=== PATIENT | male | born 1935 | race Caucasian/White ===

== ENCOUNTER 2018-01-18 13:15 | Inpatient (IN) | payer MEDICARE, BC ==
[2018-01-18] MEDS ORDERED: Sodium Chloride 0.9% 10 ML Syringe FLUSH PRN ×2 (13:25→16:20)
[2018-01-18] MEDS ORDERED: Albuterol/Ipratropium 3.0-0.5 MG/3 ML Neb Soln NEB ONE (13:29)
--- NOTE | 2018-01-18 14:09 | EDM.PDOC ---
ED HPI GENERAL MEDICAL PROBLEM - General Chief Complaint: Upper Extremity Injury/Pain Stated Complaint: CAME BY AMBULANCE, FALL Time Seen by Provider: 01/18/18 13:21 Source of Information: Reports: Patient History Limitations: Reports: No Limitations - History of Present Illness INITIAL COMMENTS - FREE TEXT/NARRATIVE: Laron is a 82 yo male who presents to the ED via ambulance after sustaining a fall. He reports that he had gotten up to the bathroom and got dizzy and fell onto the carpeted floor. Denies hitting his head, denies LOC, or neck pain. He is on coumadin. Patient reports that he has been sick for the last 2-3 days with a cough and generalized weakness. Reports that his cough is productive. He does have some shortness of breath. He has had chills at home. Reports pain to left arm after the fall. Onset: Today Onset Date: 01/15/18 Duration: Day(s):, Getting Worse Location: Reports: Upper Extremity, Left (Pain over left humerous. ) Quality: Reports: Sharp Severity: Moderate Improves with: Reports: None Worsens with: Reports: None Associated Symptoms: Reports: cough w sputum, Fever/Chills, Loss of Appetite, Shortness of Breath, Syncope, Weakness - Related Data Allergies Allergy/AdvReac Type Severity Reaction Status Date / Time No Known Allergies Allergy Verified 01/18/18 15:31 Home Meds: Home Meds Finasteride 5 mg PO DAILY 07/04/15 [History] Tamsulosin HCl 0.4 mg PO PCDINNER 07/04/15 [History] Aspirin [Adult Low Dose Aspirin EC] 81 mg PO DAILY 02/20/16 [History] Clopidogrel [Plavix] 1 tab PO DAILY 02/20/16 [History] Metoprolol Tartrate [Metoprolol Tartrate] 12.5 mg PO BID 02/20/16 [History] Nitroglycerin [Nitrostat] 1 tab SL ASDIRECTED 02/20/16 [History] atorvaSTATin [Lipitor] 40 mg PO BEDTIME 02/20/16 [History] Furosemide [Lasix] 20 mg PO DAILY 02/29/16 [History] Albuterol [Ventolin HFA] 2 puff INH Q6HR PRN 09/26/17 [History] Budesonide/Formoterol [Symbicort 80-4.5 MCG] 2 puff INH BID 09/26/17 [History] traMADol [Ultram] 50 mg PO DAILY PRN 09/26/17 [History] Acetaminophen [Tylenol Extra Strength] 1,000 mg PO BID PRN 01/18/18 [History] traZODone HCl [Trazodone HCl] 50 mg PO BEDTIME 01/18/18 [History] Past Medical History Other HEENT History: 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 Cardiovascular History: Reports: PA, Stents Other Cardiovascular History: PA with stents placed Nov 2015 Respiratory History: Reports: COPD, Pneumonia, Recurrent Other Musculoskeletal History: right hip fx Other Neuro History: 2012 bumped head Other Dermatologic History: eczema - Past Surgical History Cardiovascular Surgical History: Reports: Other (See Below) Social & Family History - Family History Family Medical History: Noncontributory - Tobacco Use Smoking Status *Q: Unknown Ever Smoked Years of Tobacco use: 30 Second Hand Smoke Exposure: No - Alcohol Use Days Per Week of Alcohol Use: 1 Number of Drinks Per Day: 1 Total Drinks Per Week: 1 - Recreational Drug Use Recreational Drug Use: No - Living Situation & Occupation Living situation: Reports: with Family Occupation: Retired Review of Systems - Review of Systems Review Of Systems: ROS reveals no pertinent complaints other than HPI. ED EXAM, GENERAL - Physical Exam Exam: See Below Exam Limited By: No Limitations General Appearance: Alert, WD/WN, Mild Distress Eye Exam: Bilateral Eye: PERRL Ears: Normal External Exam, Normal Canal, Hearing Grossly Normal, Normal TMs Ear Exam: Bilateral Ear: Canal Normal, TM normal Nose: Normal Inspection, Normal Mucosa, No Blood Throat/Mouth: Normal Inspection, Normal Lips, Normal Teeth, Normal Gums, Normal Oropharynx Head: Atraumatic, Normocephalic Neck: Normal Inspection, Supple, Non-Tender Respiratory/Chest: No Accessory Muscle Use, Crackles (coarse crackles throughout ), Wheezing Cardiovascular: Normal Peripheral Pulses, Regular Rate, Rhythm, No Edema, No Gallop, No Murmur, No Rub GI/Abdominal: Normal Bowel Sounds, Soft, Non-Tender, No Organomegaly, No Distention, No Mass (Male) Exam: Deferred Rectal (Males) Exam: Deferred Back Exam: Normal Inspection, Full Range of Motion Extremities: Arm Pain (Pain to left humerous post fall. skin tear present to elbow area. Denies numbness or tingling. Cap refill less than 2 seconds. Radial and ulner pulses present. All other extremities intact. Denies pain to other three limbs) Neurological: Alert, Oriented, CN II-XII Intact Psychiatric: Normal Affect, Normal Mood Skin Exam: Warm, Dry, Normal Color, No Rash, Other (Skin tear present to left elbow area) Lymphatic: No Adenopathy Course - Vital Signs Last Recorded V/S: Last Vital Signs Temp 102.3 F H 01/18/18 14:32 Pulse 93 01/18/18 14:32 Resp 16 01/18/18 14:32 BP 154/113 H 01/18/18 14:32 Pulse Ox 100 01/18/18 14:32 - Orders/Labs/Meds Orders: Active Orders 24 hr Category Date Time Status EKG Documentation Completion [RC] STAT Care 01/18/18 13:26 Active Peripheral IV Care [RC] . DIRECTED Care 01/18/18 13:27 Active RT Aerosol Therapy [RC] ASDIRECTED Care 01/18/18 13:29 Active CULTURE BLOOD [] Stat Lab 01/18/18 13:44 Results CULTURE BLOOD [] Stat Lab 01/18/18 13:50 Received Sodium Chloride 0.9% [Saline Flush] Med 01/18/18 13:25 Active 10 ml FLUSH ASDIRECTED PRN Blood Culture x2 Reflex Set [OM.PC] Stat Oth 01/18/18 13:26 Ordered Peripheral IV Insertion Adult [OM.PC] Stat Oth 01/18/18 13:25 Ordered Medication Orders Sodium Chloride (Saline Flush) 10 ml FLUSH ASDIRECTED PRN PRN Reason: Keep Vein Open Labs: Laboratory Tests 01/18/18 01/18/18 01/18/18 Range/Units 13:50 13:50 13:50 WBC 5.8 (5.0-10.0) 10^3/uL RBC 3.85 L (4.6-6.2) 10^6/uL Hgb 12.9 L D (14.0-18.0) g/dL Hct 39.0 L (40.0-54.0) % MCV 101.3 H D (80-100) fL MCH 33.5 (27.0-34.0) pg MCHC 33.1 (33.0-35.0) g/dL Plt Count 192 (150-450) 10^3/uL Neut % (Auto) 82.9 H (42.2-75.2) % Lymph % (Auto) 5.7 L (20.5-50.1) % [place] % (Auto) 10.9 H (2-8) % Eos % (Auto) 0.2 L (1.0-3.0) % Baso % (Auto) 0.3 (0.0-1.0) % PT (9.0-12.0) SEC INR (0.9-1.2) Sodium 137 (135-145) mmol/L Potassium 3.3 L (3.6-5.0) mmol/L Chloride 100 L (101-111) mmol/L Carbon Dioxide 28.0 (21.0-31.0) mmol/L Anion Gap 12.3 BUN 13 (7-18) mg/dL Creatinine 1.1 (0.6-1.3) mg/dL Est Cr Clr Drug Dosing 45.70 mL/min Estimated GFR (MDRD) > 60 BUN/Creatinine Ratio 11.81 Glucose 102 (74-105) mg/dL Lactic Acid (0.5-2.2) mmol/L Calcium 8.9 (8.4-10.2) mg/dl Total Bilirubin 0.5 (0.2-1.0) mg/dL AST 27 (10-42) IU/L ALT 15 (10-60) IU/L Alkaline Phosphatase 72 (42-121) IU/L Creatine Kinase 123 (26-174) IU/L Creatine Kinase Index 2.0 (0-2.4) % CK-MB (CK-2) 2.40 (0.4-4.7) ng/mL Troponin I 0.03 H* (0.00-0.02) ng/ml B-Natriuretic Peptide 519 H (0-100) pg/ml Total Protein 6.9 (6.7-8.2) g/dl Albumin 3.8 (3.2-5.5) g/dl Globulin 3.1 Albumin/Globulin Ratio 1.23 Urine Color (YELLOW) Urine Appearance (CLEAR) Urine pH (5.0-9.0) Ur Specific [place] (1.005-1.030) Urine Protein (NEGATIVE) Urine Glucose (UA) (NEGATIVE) Urine Ketones (NEGATIVE) Urine Occult Blood (NEGATIVE) Urine Nitrite (NEGATIVE) Urine Bilirubin (NEGATIVE) Urine Urobilinogen (0.2-1.0) mg/dL Ur Leukocyte Esterase (NEGATIVE) Urine RBC /HPF Urine WBC (0-5/HPF) /HPF Ur Epithelial Cells /HPF Urine Bacteria (0-FEW/HPF) /HPF Urine Mucus /LPF 01/18/18 01/18/18 01/18/18 Range/Units 13:50 13:50 14:02 WBC (5.0-10.0) 10^3/uL RBC (4.6-6.2) 10^6/uL Hgb (14.0-18.0) g/dL Hct (40.0-54.0) % MCV (80-100) fL MCH (27.0-34.0) pg MCHC (33.0-35.0) g/dL Plt Count (150-450) 10^3/uL Neut % (Auto) (42.2-75.2) % Lymph % (Auto) (20.5-50.1) % [place] % (Auto) (2-8) % Eos % (Auto) (1.0-3.0) % Baso % (Auto) (0.0-1.0) % PT 10.1 (9.0-12.0) SEC INR 1.0 (0.9-1.2) Sodium (135-145) mmol/L Potassium (3.6-5.0) mmol/L Chloride (101-111) mmol/L Carbon Dioxide (21.0-31.0) mmol/L Anion Gap BUN (7-18) mg/dL Creatinine (0.6-1.3) mg/dL Est Cr Clr Drug Dosing mL/min Estimated GFR (MDRD) BUN/Creatinine Ratio Glucose (74-105) mg/dL Lactic Acid 1.1 (0.5-2.2) mmol/L Calcium (8.4-10.2) mg/dl Total Bilirubin (0.2-1.0) mg/dL AST (10-42) IU/L ALT (10-60) IU/L Alkaline Phosphatase (42-121) IU/L Creatine Kinase (26-174) IU/L Creatine Kinase Index (0-2.4) % CK-MB (CK-2) (0.4-4.7) ng/mL Troponin I (0.00-0.02) ng/ml B-Natriuretic Peptide (0-100) pg/ml Total Protein (6.7-8.2) g/dl Albumin (3.2-5.5) g/dl Globulin Albumin/Globulin Ratio Urine Color Yellow (YELLOW) Urine Appearance Clear (CLEAR) Urine pH 5.5 (5.0-9.0) Ur Specific [place] 1.015 (1.005-1.030) Urine Protein 30 H (NEGATIVE) Urine Glucose (UA) Negative (NEGATIVE) Urine Ketones Negative (NEGATIVE) Urine Occult Blood Small H (NEGATIVE) Urine Nitrite Negative (NEGATIVE) Urine Bilirubin Negative (NEGATIVE) Urine Urobilinogen 0.2 (0.2-1.0) mg/dL Ur Leukocyte Esterase Negative (NEGATIVE) Urine RBC 5-10 H /HPF Urine WBC 0-5 (0-5/HPF) /HPF Ur Epithelial Cells Rare /HPF Urine Bacteria Rare (0-FEW/HPF) /HPF Urine Mucus Rare /LPF Influenza B: Negative Influenza A: POSITIVE Meds: Medications Generic Name Dose Route Start Last Admin Trade Name Freq PRN Reason Stop Dose Admin Sodium Chloride 10 ml 01/18/18 13:25 Saline Flush FLUSH ASDIRECTED PRN Keep Vein Open Discontinued Medications Generic Name Dose Route Start Last Admin Trade Name Freq PRN Reason Stop Dose Admin Acetaminophen 650 mg 01/18/18 14:34 01/18/18 14:39 Tylenol PO 01/18/18 14:35 650 mg NOW ONE Administration Acetaminophen Confirm 01/18/18 14:36 01/18/18 14:47 Tylenol Administered 01/18/18 14:37 Not Given Dose 650 mg .ROUTE .STK-MED ONE Albuterol/Ipratropium 3 ml 01/18/18 13:29 01/18/18 13:49 Duoneb 3.0-0.5 Mg/3 Ml NEB 01/18/18 13:30 3 ml ONETIME ONE Administration Departure - Departure Time of Disposition: 15:08 Disposition: Admitted As Inpatient 65 Condition: Fair Clinical Impression: Influenza A Fall at home Qualifiers: Encounter type: initial encounter Qualified Code(s): W19.XXXA - Unspecified fall, initial encounter; Y92.009 - Unspecified place in unspecified non- institutional (private) residence as the place of occurrence of the external cause; Y92.009 - Unspecified place in unspecified non-institutional (private) residence as the place of occurrence of the external cause - Discharge Information - My Orders Last 24 Hours: My Active Orders 01/18/18 13:25 Sodium Chloride 0.9% [Saline Flush] 10 ml FLUSH ASDIRECTED PRN Peripheral IV Insertion Adult [OM.PC] Stat 01/18/18 13:26 EKG Documentation Completion [RC] STAT Blood Culture x2 Reflex Set [OM.PC] Stat 01/18/18 13:27 Peripheral IV Care [RC] . DIRECTED 01/18/18 13:29 RT Aerosol Therapy [RC] ASDIRECTED 01/18/18 13:44 CULTURE BLOOD [BC] Stat 01/18/18 13:50 CULTURE BLOOD [BC] Stat - Assessment/Plan Last 24 Hours: My Active Orders 01/18/18 13:25 Sodium Chloride 0.9% [Saline Flush] 10 ml FLUSH ASDIRECTED PRN Peripheral IV Insertion Adult [OM.PC] Stat 01/18/18 13:26 EKG Documentation Completion [RC] STAT Blood Culture x2 Reflex Set [OM.PC] Stat 01/18/18 13:27 Peripheral IV Care [RC] . DIRECTED 01/18/18 13:29 RT Aerosol Therapy [RC] ASDIRECTED 01/18/18 13:44 CULTURE BLOOD [BC] Stat 01/18/18 13:50 CULTURE BLOOD [BC] Stat
[2018-01-18 14:19] LABS: CHLORIDE,CL 100 mmol/L (101-111); SODIUM,NA 137 mmol/L (135-145)
--- NOTE | 2018-01-18 14:20 | CR ---
Clinical history: 82-year-old male left upper arm pain associated with fall. Interpretation: Abnormal elevated humeral head relative to the glenoid of the scapula indicating probable rotator cuf f damage (impingement or tear). Homogeneous normal bone density without sign of long bone humeral fracture. No dislocation left shoulder or elbow joint. Left RIBS unremarkable without fracture, underlying lung contusion or pneumothorax. CONCLUSION: No fracture or dislocation. Probable rotator cuff damage.
[2018-01-18] MEDS ORDERED: Acetaminophen 325 MG Tab PO ONE (14:34)
[2018-01-18] MEDS ORDERED: Acetaminophen 325 MG Tab ONE (14:36)
--- NOTE | 2018-01-18 14:41 | CR ---
Clinical history: 82-year-old male emergency department with chest pain. Interpretation: No acute new cardiopulmonary abnormality identified in the interval since March 03 16 PA comparison film. Calcification arch of the ectatic aorta. Hypertrophic arthritic changes of the spine and evidence of previous right shoulder surgery. Normal cardiac silhouette without cephalization of flow, signs of al veolar edema or dependent pleural effusion. No new lung mass, hilar lymphadenopathy or focal lobar pneumonia. No atelectasis/collapse. No pneumothorax. CONCLUSION: No acute cardiopulmonary abnormality.
[2018-01-18] MEDS ORDERED: Nitroglycerin 0.4 MG Tab.SL SL PRN (16:30)
--- NOTE | 2018-01-18 17:10 | PCM.HP ---
H&P History of Present Illness - General Date of Service: 01/18/18 Admit Problem/Dx: Admission Diagnosis/Problem Admission Diagnosis/Problem Influenza due to influenza A virus Source of Information: Patient History Limitations: Reports: No Limitations - History of Present Illness Initial Comments - Free Text/Narative: 82 yo M with PMH of multivessel CAD with IA s/p stents, CHF, COPD, smoker, hypertension, BPH who presents with fever, cough, SOB and weakness. Symptoms started two days ago. He noticed fever, cough productive of whitish sputum and shortness of breath He also was very tired and fell this afternoon at home. No loss of consciousness There was no chest pain, no abdominal pain, no dysuria, no altered mental status Has had left shoulder pain for a month, likely from a rotator cuff injury Onset of Symptoms: Reports: Gradual Symptom Onset Date: 01/16/18 Improves with: Reports: None Worsens with: Reports: None Associated Symptoms: Reports: Cough, cough w sputum, Malaise - Related Data Allergies/Adverse Reactions: Allergies Allergy/AdvReac Type Severity Reaction Status Date / Time No Known Allergies Allergy Verified 01/18/18 15:31 Home Medications: Home Meds Finasteride 5 mg PO DAILY 07/04/15 [History] Tamsulosin HCl 0.4 mg PO PCDINNER 07/04/15 [History] Aspirin [Adult Low Dose Aspirin EC] 81 mg PO DAILY 02/20/16 [History] Clopidogrel [Plavix] 1 tab PO DAILY 02/20/16 [History] Metoprolol Tartrate [Metoprolol Tartrate] 12.5 mg PO BID 02/20/16 [History] Nitroglycerin [Nitrostat] 1 tab SL ASDIRECTED 02/20/16 [History] atorvaSTATin [Lipitor] 40 mg PO BEDTIME 02/20/16 [History] Furosemide [Lasix] 20 mg PO DAILY 02/29/16 [History] Albuterol [Ventolin HFA] 2 puff INH Q6HR PRN 09/26/17 [History] Budesonide/Formoterol [Symbicort 80-4.5 MCG] 2 puff INH BID 09/26/17 [History] traMADol [Ultram] 50 mg PO DAILY PRN 09/26/17 [History] Acetaminophen [Tylenol Extra Strength] 1,000 mg PO BID PRN 01/18/18 [History] traZODone HCl [Trazodone HCl] 50 mg PO BEDTIME 01/18/18 [History] Past Medical History Other HEENT History: 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 Cardiovascular History: Reports: IA, Stents Other Cardiovascular History: IA with stents placed Nov 2015 Respiratory History: Reports: COPD, Pneumonia, Recurrent Gastrointestinal History: Reports: Cholelithiasis Genitourinary History: Reports: Prostate Disorder Musculoskeletal History: Reports: Arthritis, Fracture Other Musculoskeletal History: right hip fx Neurological History: Reports: None Other Neuro History: 2013 bumped head Psychiatric History: Reports: None Endocrine/Metabolic History: Reports: None Hematologic History: Reports: None Immunologic History: Reports: None Oncologic (Cancer) History: Reports: None Other Dermatologic History: eczema - Infectious Disease History Infectious Disease History: Reports: None - Past Surgical History Cardiovascular Surgical History: Reports: Other (See Below) Social & Family History - Family History Family Medical History: Noncontributory - Tobacco Use Smoking Status *Q: Unknown Ever Smoked Years of Tobacco use: 30 Packs/Tins Daily: 3 Used Tobacco, but Quit: Yes Month Tobacco Last Used: oct, 1998 Second Hand Smoke Exposure: No - Caffeine Use Caffeine Use: Reports: Coffee, Soda - Alcohol Use Days Per Week of Alcohol Use: 1 Number of Drinks Per Day: 1 Total Drinks Per Week: 1 - Recreational Drug Use Recreational Drug Use: No - Living Situation & Occupation Living situation: Reports: with Family Occupation: Retired H&P Review of Systems - Review of Systems: Review Of Systems: ROS reveals no pertinent complaints other than HPI. Exam - Exam Exam: See Below - Vital Signs Vital Signs: Last Vital Signs Temp 39.1 C H 01/18/18 15:55 Pulse 91 01/18/18 15:55 Resp 20 01/18/18 15:55 BP 146/68 H 01/18/18 15:55 Pulse Ox 100 01/18/18 15:55 Weight: 62.868 kg - Exam General: Alert, Oriented HEENT: Conjunctiva Clear Neck: Supple, Trachea Midline Lungs: Clear to Auscultation, Normal Respiratory Effort Cardiovascular: Regular Rate, Regular Rhythm Extremities: Limited Range of Motion, Other (left shoulder has LROM, tenderness , swelling) Skin: Other (left elbow abrased skin from fall) - Patient Data Result Diagrams: 01/18/18 13:50 01/18/18 13:50 Imaging Impressions Last 24 hrs: Chest Xray no infiltrates or effusion Left Humerus X-ray no fractures, possible rotator cuff injury *Q Meaningful Use (ADM) - VTE *Q VTE Criteria *Q: - Stroke *Q Stroke Criteria *Q: - AMI *Q AMI Criteria *Q: - Problem List (1) Influenza A SNOMED Code(s): 692457828 ICD Code: J10.1 - FLU DUE TO OTH IDENT INFLUENZA VIRUS W OTH RESP MANIFEST Status: Acute Current Visit: Yes Problem List Initiated/Reviewed/Updated: Yes Orders Last 24hrs: Active Orders 24 hr Category Date Time Status Aspirin [Halfprin] Med 01/19/18 09:00 Active 81 mg PO DAILY Clopidogrel [Plavix] Med 01/19/18 09:00 Active 75 mg PO DAILY Finasteride [Proscar] Med 01/19/18 09:00 Active 5 mg PO DAILY Furosemide [Lasix] Med 01/19/18 09:00 Active 20 mg PO DAILY Metoprolol Tartrate [Lopressor] Med 01/18/18 21:00 Active 12.5 mg PO BID Nitroglycerin [Nitrostat] Med 01/18/18 16:30 Active 0.4 mg SL Q5M PRN Oseltamivir [Tamiflu] Med 01/18/18 21:00 Ordered 75 mg PO BID Patient's Own Medication [Ptom] Med 01/18/18 21:00 Active 0 each INH BID Potassium Chloride [Klor-Con 10] Med 01/18/18 18:00 Active 20 meq PO BIDMEALS Tamsulosin [Flomax] Med 01/18/18 18:30 Active 0.4 mg PO PCDINNER atorvaSTATin [Lipitor] Med 01/18/18 21:00 Active 40 mg PO BEDTIME traZODone Med 01/18/18 21:00 Active 50 mg PO BEDTIME Medication Orders Acetaminophen (Tylenol) 650 mg PO Q4H PRN PRN Reason: fever Albuterol/Ipratropium (Duoneb 3.0-0.5 Mg/3 Ml) 3 ml NEB Q4H PRN PRN Reason: shortness of breath/wheezing Aspirin (Halfprin) 81 mg PO DAILY MARIE Atorvastatin Calcium (Lipitor) 40 mg PO BEDTIME MARIE Clopidogrel Bisulfate (Plavix) 75 mg PO DAILY [facility] Enoxaparin Sodium (Lovenox) 40 mg SUBCUT DAILY [facility] Finasteride (Proscar) 5 mg PO DAILY MARIE Furosemide (Lasix) 20 mg PO DAILY [facility] Metoprolol Tartrate (Lopressor) 12.5 mg PO BID [facility] Nitroglycerin (Nitrostat) 0.4 mg SL Q5M PRN PRN Reason: Chest Pain Oseltamivir Phosphate (Tamiflu) 75 mg PO BID MARIE Oxycodone HCl (Oxycodone) 5 mg PO Q4H PRN PRN Reason: Pain Budesonide/Formoterol [ Symbicort 80-4.5 Mcg ]Pt's Own Med 0 each INH BID MARIE Potassium Chloride (Klor-Con 10) 20 meq PO BIDMEALS [facility] Sodium Chloride (Saline Flush) 10 ml FLUSH ASDIRECTED PRN PRN Reason: Keep Vein Open Sodium Chloride (Saline Flush) 10 ml FLUSH ASDIRECTED PRN PRN Reason: Keep Vein Open Tamsulosin HCl (Flomax) 0.4 mg PO PCDINNER [facility] Trazodone HCl (Trazodone) 50 mg PO BEDTIME [facility] Assessment/Plan Comment:: 82 yo M with PMH of multivessel CAD with IA s/p stents, CHF, COPD, smoker, hypertension, BPH who presents with fever, cough, SOB and weakness. #SOB, fever, cough Influenza A positive Symptomatic mgt: Tylenol PRN fever Tamiflu for 5 days. #Hx of CAD stable, no chest pain continue aspirin, plavix, statin, metoprolol #COPD no exacerbation continue peforomist, duonebs prn student assistance counselor on tobacco cessation #HTN stable BP continue metoprolol #DVT ppx SC lovenox
--- NOTE | 2018-01-18 17:13 | EKG ---
01/18/2018 - ISA BHAT - TIME: 1:18 p.m. EKG shows a rate of 94 beats per minute, sinus rhythm. There is one PVC. [facility] /[id number]
[2018-01-18] MEDS: Oseltamivir 30 MG Cap PO SCH ×2 (18:01→20:40)
[2018-01-18] MEDS: Potassium Chloride 10 MEQ Tab.ER PO SCH (18:02)
[2018-01-18] MEDS: Tamsulosin 0.4 MG Cap.ER PO SCH (18:02)
[2018-01-18] MEDS: Albuterol/Ipratropium 3.0-0.5 MG/3 ML Neb Soln NEB PRN (19:06)
[2018-01-18] MEDS: Metoprolol Tartrate 25 MG Tab PO SCH (20:36)
[2018-01-18] MEDS: traZODone 50 MG Tab PO SCH (20:36)
[2018-01-18] MEDS: atorvaSTATin 20 MG Tab PO SCH (20:36)
[2018-01-18] MEDS: BUDESONIDE INH SCH (20:44)
[2018-01-18] MEDS: FORMOTEROL INH SCH (20:44)
[2018-01-18] MEDS ORDERED: Oseltamivir 75 MG Cap PO SCH (21:00)
[2018-01-18] MEDS: guaiFENesin 100 MG/5 ML Soln 5 ML UD Cup PO PRN (23:20)
[2018-01-18] MEDS: oxyCODONE 5 MG Tab PO PRN (23:26)
[2018-01-19] MEDS: Acetaminophen 325 MG Tab PO PRN (00:17)
[2018-01-19] MEDS: Albuterol/Ipratropium 3.0-0.5 MG/3 ML Neb Soln NEB PRN ×2 (07:37→11:16)
[2018-01-19] MEDS: Finasteride 5 MG Tab PO SCH (08:46)
[2018-01-19] MEDS: Potassium Chloride 10 MEQ Tab.ER PO SCH (08:46)
[2018-01-19] MEDS: Metoprolol Tartrate 25 MG Tab PO SCH ×2 (08:46→20:54)
[2018-01-19] MEDS: Clopidogrel 75 MG Tab PO SCH (08:46)
[2018-01-19] MEDS: Enoxaparin 40 MG/0.4 ML Syringe SUBCUT SCH (08:46)
[2018-01-19] MEDS: Aspirin 81 MG Tab.EC PO SCH (08:46)
[2018-01-19] MEDS: BUDESONIDE INH SCH ×2 (08:47→20:58)
[2018-01-19] MEDS: FORMOTEROL INH SCH ×2 (08:47→20:58)
[2018-01-19] MEDS: Oseltamivir 30 MG Cap PO SCH ×2 (08:47→20:55)
[2018-01-19] MEDS: Furosemide 20 MG Tab PO SCH (08:47)
[2018-01-19] MEDS ORDERED: Potassium Chloride 10 MEQ Tab.ER PO ONE ×2 (09:22→12:00)
--- NOTE | 2018-01-19 09:59 | PCM.PN ---
- General Info Date of Service: 01/19/18 Admission Dx/Problem (Free Text): Admission Diagnosis/Problem Admission Diagnosis/Problem Influenza due to influenza A virus Subjective Update: Overnight had high fever, feeling better today. He was to have moderate left shoulder pain, worse with activity, this has been present before but has been exacerbated by the fall He was getting physical therapy as an outpatient Functional Status: Denies: Pain Controlled - Review of Systems General: Reports: Fever, Weakness Pulmonary: Denies: Shortness of Breath Cardiovascular: Denies: Chest Pain Gastrointestinal: Denies: Abdominal Pain - Patient Data Vitals - Most Recent: Last Vital Signs Temp 37.6 C 01/19/18 07:00 Pulse 70 01/19/18 08:46 Resp 20 01/19/18 07:00 BP 129/63 01/19/18 08:46 Pulse Ox 96 01/19/18 08:17 Weight - Most Recent: 62.868 kg I&O - Last 24 Hours: Intake & Output 01/18/18 01/19/18 01/19/18 22:59 06:59 14:59 Intake Total 450 Output Total 160 140 Balance 290 -140 Lab Results Last 24 Hours: Laboratory Results - last 24 hr 01/19/18 01/19/18 Range/Units 06:18 06:18 WBC 4.6 L (5.0-10.0) 10^3/uL RBC 3.34 L (4.6-6.2) 10^6/uL Hgb 11.3 L D (14.0-18.0) g/dL Hct 34.0 L (40.0-54.0) % MCV 101.8 H (80-100) fL MCH 33.8 (27.0-34.0) pg MCHC 33.2 (33.0-35.0) g/dL Plt Count 170 (150-450) 10^3/uL Neut % (Auto) 64.3 (42.2-75.2) % Lymph % (Auto) 14.7 L (20.5-50.1) % [place] % (Auto) 20.8 H (2-8) % Eos % (Auto) 0.0 L (1.0-3.0) % Baso % (Auto) 0.2 (0.0-1.0) % Add Manual Diff Yes Neutrophils % (Manual) 66 (42-75) % Band Neutrophils % 2 % Lymphocytes % (Manual) 18 L (20-50) % Monocytes % (Manual) 14 H (2-8) % Platelet Estimate Adequate Giant Platelets Few Macrocytosis 1+ slight Sodium 134 L (135-145) mmol/L Potassium 3.5 L (3.6-5.0) mmol/L Chloride 100 L (101-111) mmol/L Carbon Dioxide 26.0 (21.0-31.0) mmol/L Anion Gap 11.5 BUN 15 (7-18) mg/dL Creatinine 1.2 (0.6-1.3) mg/dL Est Cr Clr Drug Dosing 41.48 mL/min Estimated GFR (MDRD) 58 Glucose 94 (74-105) mg/dL Calcium 8.6 (8.4-10.2) mg/dl Med Orders - Current: Current Medications Acetaminophen (Tylenol) 650 mg PO Q4H PRN PRN Reason: fever Last Admin: 01/19/18 00:17 Dose: 650 mg Albuterol/Ipratropium (Duoneb 3.0-0.5 Mg/3 Ml) 3 ml NEB Q4H PRN PRN Reason: shortness of breath/wheezing Last Admin: 01/19/18 07:37 Dose: 3 ml Aspirin (Halfprin) 81 mg PO DAILY [facility] Last Admin: 01/19/18 08:46 Dose: 81 mg Atorvastatin Calcium (Lipitor) 40 mg PO BEDTIME [facility] Last Admin: 01/18/18 20:36 Dose: 40 mg Clopidogrel Bisulfate (Plavix) 75 mg PO DAILY [facility] Last Admin: 01/19/18 08:46 Dose: 75 mg Enoxaparin Sodium (Lovenox) 40 mg SUBCUT DAILY [facility] Last Admin: 01/19/18 08:46 Dose: 40 mg Finasteride (Proscar) 5 mg PO DAILY [facility] Last Admin: 01/19/18 08:46 Dose: 5 mg Furosemide (Lasix) 20 mg PO DAILY [facility] Last Admin: 01/19/18 08:47 Dose: 20 mg Guaifenesin (Robitussin) 100 mg PO Q6H PRN PRN Reason: Cough Last Admin: 01/18/18 23:20 Dose: 100 mg Metoprolol Tartrate (Lopressor) 12.5 mg PO BID [facility] Last Admin: 01/19/18 08:46 Dose: 12.5 mg Nitroglycerin (Nitrostat) 0.4 mg SL Q5M PRN PRN Reason: Chest Pain Oseltamivir Phosphate (Tamiflu) 30 mg PO BID [facility] Last Admin: 01/19/18 08:47 Dose: 30 mg Oxycodone HCl (Oxycodone) 5 mg PO Q4H PRN PRN Reason: Pain Last Admin: 01/18/18 23:26 Dose: 5 mg Budesonide/Formoterol [ Symbicort 80-4.5 Mcg ]Pt's Own Med 0 each INH BID [facility] Last Admin: 01/19/18 08:47 Dose: 1 each Potassium Chloride (Klor-Con 10) 40 meq PO ONETIME ONE Stop: 01/19/18 12:01 Potassium Chloride (Klor-Con 10) 20 meq PO WITHBREAKFAST [facility] Sodium Chloride (Saline Flush) 10 ml FLUSH ASDIRECTED PRN PRN Reason: Keep Vein Open Sodium Chloride (Saline Flush) 10 ml FLUSH ASDIRECTED PRN PRN Reason: Keep Vein Open Tamsulosin HCl (Flomax) 0.4 mg PO PCDINNER [facility] Last Admin: 01/18/18 18:02 Dose: 0.4 mg Trazodone HCl (Trazodone) 50 mg PO BEDTIME [facility] Last Admin: 01/18/18 20:36 Dose: 50 mg Discontinued Medications Acetaminophen (Tylenol) 650 mg PO NOW ONE Stop: 01/18/18 14:35 Last Admin: 01/18/18 14:39 Dose: 650 mg Acetaminophen (Tylenol) Confirm Administered Dose 650 mg .ROUTE .STK-MED ONE Stop: 01/18/18 14:37 Last Admin: 01/18/18 14:47 Dose: Not Given Albuterol/Ipratropium (Duoneb 3.0-0.5 Mg/3 Ml) 3 ml NEB ONETIME ONE Stop: 01/18/18 13:30 Last Admin: 01/18/18 13:49 Dose: 3 ml Oseltamivir Phosphate (Tamiflu) 75 mg PO BID [facility] Potassium Chloride (Klor-Con 10) 20 meq PO BIDMEALS [facility] Last Admin: 01/19/18 08:46 Dose: 20 meq Potassium Chloride (Klor-Con 10) 40 meq PO ONETIME ONE Stop: 01/19/18 09:23 - Exam General: Alert, Oriented Neck: Supple Lungs: Normal Respiratory Effort, Wheezing Cardiovascular: Regular Rate, Regular Rhythm GI/Abdominal Exam: Normal Bowel Sounds, Soft, Non-Tender Extremities: No Pedal Edema Skin: Warm, Dry - Problem List & Annotations (1) Influenza A SNOMED Code(s): 303862056 Code(s): J10.1 - FLU DUE TO OTH IDENT INFLUENZA VIRUS W OTH RESP MANIFEST Status: Acute Current Visit: Yes (2) Acute bronchitis SNOMED Code(s): 75108111 Code(s): J20.9 - ACUTE BRONCHITIS, UNSPECIFIED Status: Acute Current Visit: No - Problem List Review Problem List Initiated/Reviewed/Updated: Yes - My Orders Last 24 Hours: My Active Orders 01/18/18 22:37 guaiFENesin [Robitussin] 100 mg PO Q6H PRN 01/19/18 11:00 Flutter Valve Therapy [RT Chest Physiotherapy] [RC] QID 01/19/18 12:00 Potassium Chloride [Klor-Con 10] 40 meq PO ONETIME ONE 01/20/18 08:00 Potassium Chloride [Klor-Con 10] 20 meq PO WITHBREAKFAST - Plan Plan:: 82 yo M with PMH of multivessel CAD with CT s/p stents, CHF, COPD, smoker, hypertension, BPH who presents with fever, cough, SOB and weakness. #SOB, fever, cough Influenza A positive Symptomatic mgt: Tylenol PRN fever Tamiflu for 5 days. #Hx of CAD stable, no chest pain continue aspirin, plavix, statin, metoprolol #COPD mild acute exacerbation with wheezing continue peforomist, duonebs prn add pulmicort counselled on tobacco cessation #HTN continue metoprolol #DVT ppx [place] lovenox
[2018-01-19] MEDS: Budesonide 0.5 MG/2 ML Neb Susp NEB SCH ×2 (11:16→18:08)
[2018-01-19] MEDS: Tamsulosin 0.4 MG Cap.ER PO SCH (17:58)
[2018-01-19] MEDS: atorvaSTATin 20 MG Tab PO SCH (20:52)
[2018-01-19] MEDS: traZODone 50 MG Tab PO SCH (20:55)
[2018-01-20 06:56] LABS: CHLORIDE,CL 101 mmol/L (101-111); SODIUM,NA 135 mmol/L (135-145)
[2018-01-20] MEDS: Budesonide 0.5 MG/2 ML Neb Susp NEB SCH ×2 (07:35→17:43)
[2018-01-20] MEDS: Albuterol/Ipratropium 3.0-0.5 MG/3 ML Neb Soln NEB PRN (07:35)
--- NOTE | 2018-01-20 09:52 | PCM.PN ---
- General Info Date of Service: 01/20/18 Subjective Update: Overnight had no high fever, Has moderate left shoulder pain, worse with activity, this has been present before but has been exacerbated by the fall Patient was noted significant urinary retention. Has been up to the bathroom every hour overnight. Could not sleep. On bladder scan has more than 500 mL urinary retention. - Review of Systems General: Denies: Fever Pulmonary: Denies: Shortness of Breath Cardiovascular: Denies: Chest Pain Genitourinary: Reports: Frequency Neurological: Denies: Confusion - Patient Data Vitals - Most Recent: Last Vital Signs Temp 36.6 C 01/20/18 03:00 Pulse 66 01/20/18 07:36 Resp 20 01/20/18 03:00 BP 151/74 H 01/20/18 03:00 Pulse Ox 98 01/20/18 07:36 Weight - Most Recent: 61.598 kg I&O - Last 24 Hours: Intake & Output 01/19/18 01/20/18 01/20/18 22:59 06:59 14:59 Intake Total 200 350 Output Total 100 375 Balance 100 -25 Lab Results Last 24 Hours: Laboratory Results - last 24 hr 01/20/18 01/20/18 Range/Units 05:55 05:55 WBC 3.9 L (5.0-10.0) 10^3/uL RBC 3.49 L (4.6-6.2) 10^6/uL Hgb 11.7 L (14.0-18.0) g/dL Hct 35.6 L (40.0-54.0) % MCV 102.0 H (80-100) fL MCH 33.5 (27.0-34.0) pg MCHC 32.9 L (33.0-35.0) g/dL Plt Count 179 (150-450) 10^3/uL Neut % (Auto) 58.1 (42.2-75.2) % Lymph % (Auto) 22.2 (20.5-50.1) % [place] % (Auto) 19.1 H (2-8) % Eos % (Auto) 0.3 L (1.0-3.0) % Baso % (Auto) 0.3 (0.0-1.0) % Sodium 135 (135-145) mmol/L Potassium 3.9 (3.6-5.0) mmol/L Chloride 101 (101-111) mmol/L Carbon Dioxide 25.0 (21.0-31.0) mmol/L Anion Gap 12.9 BUN 17 (7-18) mg/dL Creatinine 1.1 (0.6-1.3) mg/dL Est Cr Clr Drug Dosing 44.33 mL/min Estimated GFR (MDRD) > 60 Glucose 85 (74-105) mg/dL Calcium 8.6 (8.4-10.2) mg/dl Med Orders - Current: Current Medications Acetaminophen (Tylenol) 650 mg PO Q4H PRN PRN Reason: fever Last Admin: 01/19/18 00:17 Dose: 650 mg Albuterol/Ipratropium (Duoneb 3.0-0.5 Mg/3 Ml) 3 ml NEB Q4H PRN PRN Reason: shortness of breath/wheezing Last Admin: 01/20/18 07:35 Dose: 3 ml Aspirin (Halfprin) 81 mg PO DAILY [facility] Last Admin: 01/19/18 08:46 Dose: 81 mg Atorvastatin Calcium (Lipitor) 40 mg PO BEDTIME [facility] Last Admin: 01/19/18 20:52 Dose: 40 mg Budesonide (Pulmicort) 0.5 mg NEB BIDRT [facility] Last Admin: 01/20/18 07:35 Dose: 0.5 mg Clopidogrel Bisulfate (Plavix) 75 mg PO DAILY [facility] Last Admin: 01/19/18 08:46 Dose: 75 mg Enoxaparin Sodium (Lovenox) 40 mg SUBCUT DAILY [facility] Last Admin: 01/19/18 08:46 Dose: 40 mg Finasteride (Proscar) 5 mg PO DAILY [facility] Last Admin: 01/19/18 08:46 Dose: 5 mg Furosemide (Lasix) 20 mg PO DAILY [facility] Last Admin: 01/19/18 08:47 Dose: 20 mg Guaifenesin (Robitussin) 100 mg PO Q6H PRN PRN Reason: Cough Last Admin: 01/18/18 23:20 Dose: 100 mg Metoprolol Tartrate (Lopressor) 12.5 mg PO BID [facility] Last Admin: 01/19/18 20:54 Dose: 12.5 mg Nitroglycerin (Nitrostat) 0.4 mg SL Q5M PRN PRN Reason: Chest Pain Oseltamivir Phosphate (Tamiflu) 30 mg PO BID [facility] Last Admin: 01/19/18 20:55 Dose: 30 mg Oxycodone HCl (Oxycodone) 5 mg PO Q4H PRN PRN Reason: Pain Last Admin: 01/18/18 23:26 Dose: 5 mg Budesonide/Formoterol [ Symbicort 80-4.5 Mcg ]Pt's Own Med 0 each INH BID [facility] Last Admin: 01/19/18 20:58 Dose: 1 each Potassium Chloride (Klor-Con 10) 20 meq PO WITHBREAKFAST [facility] Sodium Chloride (Saline Flush) 10 ml FLUSH ASDIRECTED PRN PRN Reason: Keep Vein Open Sodium Chloride (Saline Flush) 10 ml FLUSH ASDIRECTED PRN PRN Reason: Keep Vein Open Tamsulosin HCl (Flomax) 0.4 mg PO PCDINNER [facility] Last Admin: 01/19/18 17:58 Dose: 0.4 mg Trazodone HCl (Trazodone) 50 mg PO BEDTIME [facility] Last Admin: 01/19/18 20:55 Dose: 50 mg Discontinued Medications Acetaminophen (Tylenol) 650 mg PO NOW ONE Stop: 01/18/18 14:35 Last Admin: 01/18/18 14:39 Dose: 650 mg Acetaminophen (Tylenol) Confirm Administered Dose 650 mg .ROUTE .STK-MED ONE Stop: 01/18/18 14:37 Last Admin: 01/18/18 14:47 Dose: Not Given Albuterol/Ipratropium (Duoneb 3.0-0.5 Mg/3 Ml) 3 ml NEB ONETIME ONE Stop: 01/18/18 13:30 Last Admin: 01/18/18 13:49 Dose: 3 ml Oseltamivir Phosphate (Tamiflu) 75 mg PO BID [facility] Potassium Chloride (Klor-Con 10) 20 meq PO BIDMEALS [facility] Last Admin: 01/19/18 08:46 Dose: 20 meq Potassium Chloride (Klor-Con 10) 40 meq PO ONETIME ONE Stop: 01/19/18 09:23 Last Admin: 01/19/18 10:25 Dose: Not Given Potassium Chloride (Klor-Con 10) 40 meq PO ONETIME ONE Stop: 01/19/18 12:01 Last Admin: 01/19/18 12:19 Dose: 40 meq - Exam General: Alert, Oriented Neck: Supple Lungs: Normal Respiratory Effort, Decreased Breath Sounds. No: Wheezing Cardiovascular: Regular Rate, Regular Rhythm Extremities: No Pedal Edema - Problem List & Annotations (1) Acute bronchitis SNOMED Code(s): 75317698 Code(s): J20.9 - ACUTE BRONCHITIS, UNSPECIFIED Status: Acute Current Visit: No (2) Influenza A SNOMED Code(s): 343658071 Code(s): J10.1 - FLU DUE TO OTH IDENT INFLUENZA VIRUS W OTH RESP MANIFEST Status: Acute Current Visit: Yes - Problem List Review Problem List Initiated/Reviewed/Updated: Yes - My Orders Last 24 Hours: My Active Orders 01/19/18 15:29 Dietary Supplements [RC] DAILY - Plan Plan:: 82 yo M with PMH of multivessel CAD with [place] s/p stents, CHF, COPD, smoker, hypertension, BPH who presents with fever, cough, SOB and weakness. #SOB, fever, cough Influenza A positive Seems improving Symptomatic mgt: Tylenol PRN fever Tamiflu for 5 days. #Hx of CAD stable, no chest pain continue aspirin, plavix, statin, metoprolol #COPD mild acute exacerbation with wheezing Improved continue peforomist, duonebs prn Continue pulmicort counselled on tobacco cessation #Urinary retention Has a history of enlarged prostate. Will place Escalante catheter #HTN continue metoprolol # Mobility The patient has significant imbalance. Has been working with PT. They're recommending continued therapy #DVT ppx SC lovenox
[2018-01-20] MEDS: Potassium Chloride 10 MEQ Tab.ER PO SCH (10:16)
[2018-01-20] MEDS: Oseltamivir 30 MG Cap PO SCH ×2 (10:16→22:05)
[2018-01-20] MEDS: Furosemide 20 MG Tab PO SCH (10:17)
[2018-01-20] MEDS: Aspirin 81 MG Tab.EC PO SCH (10:17)
[2018-01-20] MEDS: Metoprolol Tartrate 25 MG Tab PO SCH ×2 (10:18→22:02)
[2018-01-20] MEDS: Finasteride 5 MG Tab PO SCH (10:18)
[2018-01-20] MEDS: FORMOTEROL INH SCH ×2 (10:33→22:07)
[2018-01-20] MEDS: BUDESONIDE INH SCH ×2 (10:33→22:07)
[2018-01-20] MEDS: Clopidogrel 75 MG Tab PO SCH (10:56)
[2018-01-20] MEDS: Enoxaparin 40 MG/0.4 ML Syringe SUBCUT SCH (10:56)
[2018-01-20] MEDS: Acetaminophen 325 MG Tab PO PRN ×2 (15:24→20:19)
[2018-01-20] MEDS: Tamsulosin 0.4 MG Cap.ER PO SCH (17:36)
[2018-01-20] MEDS ORDERED: cefTRIAXone 1 GM Vial IVPUSH SCH ×2 (22:00→23:00)
[2018-01-20] MEDS: traZODone 50 MG Tab PO SCH (22:02)
[2018-01-20] MEDS: atorvaSTATin 20 MG Tab PO SCH (22:05)
[2018-01-20] MEDS: guaiFENesin 100 MG/5 ML Soln 5 ML UD Cup PO PRN (22:08)
[2018-01-21] MEDS ORDERED: cefTRIAXone 1 GM Vial ONE (00:41)
[2018-01-21] MEDS: cefTRIAXone 1 GM Vial IVPUSH SCH (00:53)
[2018-01-21] MEDS: Acetaminophen 325 MG Tab PO PRN ×2 (02:02→16:25)
[2018-01-21] MEDS: oxyCODONE 5 MG Tab PO PRN (02:04)
[2018-01-21] MEDS: Albuterol/Ipratropium 3.0-0.5 MG/3 ML Neb Soln NEB PRN (07:29)
[2018-01-21] MEDS: Budesonide 0.5 MG/2 ML Neb Susp NEB SCH ×2 (07:29→18:17)
[2018-01-21] MEDS: Potassium Chloride 10 MEQ Tab.ER PO SCH (09:46)
[2018-01-21] MEDS: Oseltamivir 30 MG Cap PO SCH ×2 (09:46→20:43)
[2018-01-21] MEDS: Aspirin 81 MG Tab.EC PO SCH (09:47)
[2018-01-21] MEDS: Clopidogrel 75 MG Tab PO SCH (09:47)
[2018-01-21] MEDS: Furosemide 20 MG Tab PO SCH (09:47)
[2018-01-21] MEDS: Finasteride 5 MG Tab PO SCH (09:47)
[2018-01-21] MEDS: Metoprolol Tartrate 25 MG Tab PO SCH ×2 (09:48→20:43)
[2018-01-21] MEDS: Enoxaparin 40 MG/0.4 ML Syringe SUBCUT SCH (09:51)
[2018-01-21] MEDS: FORMOTEROL INH SCH ×2 (09:53→20:47)
[2018-01-21] MEDS: BUDESONIDE INH SCH ×2 (09:53→20:47)
--- NOTE | 2018-01-21 10:33 | PCM.PN ---
- General Info Date of Service: 01/21/18 Admission Dx/Problem (Free Text): Admission Diagnosis/Problem Admission Diagnosis/Problem Influenza due to influenza A virus Subjective Update: Last evening had high fever, associated with rigors, tremors. Has moderate left shoulder pain, worse with activity, this has been present before but has been exacerbated by the fall Patient was noted significant urinary retention. [place] catheter was placed. Slept only a few hours. Functional Status: Reports: Pain Controlled, Tolerating Diet - Review of Systems General: Reports: Fever (Last night) Pulmonary: Denies: Shortness of Breath Cardiovascular: Denies: Chest Pain Gastrointestinal: Denies: Abdominal Pain Genitourinary: Reports: Other (Tolerating Escalante catheter) Skin: Reports: Bruising Neurological: Reports: Tremors Psychiatric: Reports: Confusion (Last night) - Patient Data Vitals - Most Recent: Last Vital Signs Temp 37.5 C 01/21/18 07:55 Pulse 73 01/21/18 09:48 Resp 20 01/21/18 07:55 BP 134/72 01/21/18 09:48 Pulse Ox 98 01/21/18 07:55 Weight - Most Recent: 61.054 kg I&O - Last 24 Hours: Intake & Output 01/20/18 01/21/18 01/21/18 22:59 06:59 14:59 Intake Total 425 Output Total 300 Balance -300 425 Lab Results Last 24 Hours: Laboratory Results - last 24 hr 01/20/18 01/21/18 01/21/18 Range/Units 14:58 09:43 09:43 WBC 8.1 (5.0-10.0) 10^3/uL RBC 3.69 L (4.6-6.2) 10^6/uL Hgb 12.3 L (14.0-18.0) g/dL Hct 37.3 L (40.0-54.0) % MCV 101.1 H (80-100) fL MCH 33.3 (27.0-34.0) pg MCHC 33.0 (33.0-35.0) g/dL Plt Count 173 (150-450) 10^3/uL Neut % (Auto) 91.1 H (42.2-75.2) % Lymph % (Auto) 5.6 L (20.5-50.1) % [place] % (Auto) 3.2 (2-8) % Eos % (Auto) 0.0 L (1.0-3.0) % Baso % (Auto) 0.1 (0.0-1.0) % Sodium 132 L (135-145) mmol/L Potassium 3.6 (3.6-5.0) mmol/L Chloride 97 L (101-111) mmol/L Carbon Dioxide 26.0 (21.0-31.0) mmol/L Anion Gap 12.6 BUN 21 H (7-18) mg/dL Creatinine 1.3 (0.6-1.3) mg/dL Est Cr Clr Drug Dosing 37.18 mL/min Estimated GFR (MDRD) 53 Glucose 151 H (74-105) mg/dL POC Glucose 91 (83-110) mg/dl Calcium 8.5 (8.4-10.2) mg/dl Adrián Results Last 24 Hours: Microbiology 01/20/18 21:10 Anaerobic Blood Culture - Final Blood - Venous Med Orders - Current: Current Medications Acetaminophen (Tylenol) 650 mg PO Q4H PRN PRN Reason: fever Last Admin: 01/21/18 02:02 Dose: 650 mg Albuterol/Ipratropium (Duoneb 3.0-0.5 Mg/3 Ml) 3 ml NEB Q4H PRN PRN Reason: shortness of breath/wheezing Last Admin: 01/21/18 07:29 Dose: 3 ml Aspirin (Halfprin) 81 mg PO DAILY [facility] Last Admin: 01/21/18 09:47 Dose: 81 mg Atorvastatin Calcium (Lipitor) 40 mg PO BEDTIME [facility] Last Admin: 01/20/18 22:05 Dose: 40 mg Budesonide (Pulmicort) 0.5 mg NEB BIDRT [facility] Last Admin: 01/21/18 07:29 Dose: 0.5 mg Ceftriaxone Sodium (Rocephin) 1 gm IVPUSH Q24H [facility] Last Admin: 01/21/18 00:53 Dose: 1 gm Clopidogrel Bisulfate (Plavix) 75 mg PO DAILY [facility] Last Admin: 01/21/18 09:47 Dose: 75 mg Enoxaparin Sodium (Lovenox) 40 mg SUBCUT DAILY [facility] Last Admin: 01/21/18 09:51 Dose: 40 mg Finasteride (Proscar) 5 mg PO DAILY [facility] Last Admin: 01/21/18 09:47 Dose: 5 mg Furosemide (Lasix) 20 mg PO DAILY [facility] Last Admin: 01/21/18 09:47 Dose: 20 mg Guaifenesin (Robitussin) 100 mg PO Q6H PRN PRN Reason: Cough Last Admin: 01/20/18 22:08 Dose: 100 mg Metoprolol Tartrate (Lopressor) 12.5 mg PO BID [facility] Last Admin: 01/21/18 09:48 Dose: 12.5 mg Nitroglycerin (Nitrostat) 0.4 mg SL Q5M PRN PRN Reason: Chest Pain Oseltamivir Phosphate (Tamiflu) 30 mg PO BID [facility] Last Admin: 01/21/18 09:46 Dose: 30 mg Oxycodone HCl (Oxycodone) 5 mg PO Q4H PRN PRN Reason: Pain Last Admin: 01/21/18 02:04 Dose: 5 mg Budesonide/Formoterol [ Symbicort 80-4.5 Mcg ]Pt's Own Med 0 each INH BID [facility] Last Admin: 01/21/18 09:53 Dose: 2 each Potassium Chloride (Klor-Con 10) 20 meq PO WITHBREAKFAST [facility] Last Admin: 01/21/18 09:46 Dose: 20 meq Sodium Chloride (Saline Flush) 10 ml FLUSH ASDIRECTED PRN PRN Reason: Keep Vein Open Sodium Chloride (Saline Flush) 10 ml FLUSH ASDIRECTED PRN PRN Reason: Keep Vein Open Tamsulosin HCl (Flomax) 0.4 mg PO PCDINNER [facility] Last Admin: 01/20/18 17:36 Dose: 0.4 mg Zolpidem Tartrate (Ambien) 5 mg PO BEDTIME PRN PRN Reason: for sleep Discontinued Medications Acetaminophen (Tylenol) 650 mg PO NOW ONE Stop: 01/18/18 14:35 Last Admin: 01/18/18 14:39 Dose: 650 mg Acetaminophen (Tylenol) Confirm Administered Dose 650 mg .ROUTE .STK-MED ONE Stop: 01/18/18 14:37 Last Admin: 01/18/18 14:47 Dose: Not Given Albuterol/Ipratropium (Duoneb 3.0-0.5 Mg/3 Ml) 3 ml NEB ONETIME ONE Stop: 01/18/18 13:30 Last Admin: 01/18/18 13:49 Dose: 3 ml Ceftriaxone Sodium (Rocephin) 1 gm IVPUSH Q24H [facility] Last Admin: 01/21/18 05:23 Dose: Not Given Ceftriaxone Sodium (Rocephin) Confirm Administered Dose 1 gm .ROUTE .STK-MED ONE Stop: 01/21/18 00:42 Last Admin: 01/21/18 00:46 Dose: Not Given Oseltamivir Phosphate (Tamiflu) 75 mg PO BID [facility] Potassium Chloride (Klor-Con 10) 20 meq PO BIDMEALS [facility] Last Admin: 01/19/18 08:46 Dose: 20 meq Potassium Chloride (Klor-Con 10) 40 meq PO ONETIME ONE Stop: 01/19/18 09:23 Last Admin: 01/19/18 10:25 Dose: Not Given Potassium Chloride (Klor-Con 10) 40 meq PO ONETIME ONE Stop: 01/19/18 12:01 Last Admin: 01/19/18 12:19 Dose: 40 meq Trazodone HCl (Trazodone) 50 mg PO BEDTIME [facility] Last Admin: 01/20/18 22:02 Dose: 50 mg - Exam General: Alert, Oriented HEENT: EOMI Neck: Supple Lungs: Clear to Auscultation, Normal Respiratory Effort Cardiovascular: Regular Rate, Regular Rhythm GI/Abdominal Exam: Normal Bowel Sounds, Soft, Non-Tender Extremities: No Pedal Edema Skin: Warm, Dry Neurological: No New Focal Deficit, Other (Mild tremor) Psy/Mental Status: Alert, Normal Affect, Normal Mood - Problem List & Annotations (1) Acute bronchitis SNOMED Code(s): 37692353 Code(s): J20.9 - ACUTE BRONCHITIS, UNSPECIFIED Status: Acute Current Visit: No (2) Influenza A SNOMED Code(s): 011753589 Code(s): J10.1 - FLU DUE TO OTH IDENT INFLUENZA VIRUS W OTH RESP MANIFEST Status: Acute Current Visit: Yes - Problem List Review Problem List Initiated/Reviewed/Updated: Yes - My Orders Last 24 Hours: My Active Orders 01/20/18 20:58 Blood Culture x2 Reflex Set [OM.PC] Stat 01/20/18 21:10 CULTURE BLOOD [BC] Stat 01/20/18 21:15 CULTURE BLOOD [BC] Stat 01/21/18 00:30 cefTRIAXone [Rocephin] 1 gm IVPUSH Q24H 01/21/18 09:20 UA W/MICROSCOPIC [URIN] Routine 01/21/18 09:21 CULTURE URINE [RM] Routine 01/21/18 10:27 Zolpidem [Ambien] 5 mg PO BEDTIME PRN 01/22/18 05:15 BASIC METABOLIC PANEL,BMP [CHEM] AM CBC WITH AUTO DIFF [HEME] AM - Plan Plan:: 82 yo M with PMH of multivessel CAD with [place] s/p stents, CHF, COPD, smoker, hypertension, BPH who presents with fever, cough, SOB and weakness. #SOB, fever, cough Influenza A positive Developed high fever yesterday associated with tremors, rigors Symptomatic mgt: Tylenol PRN fever Tamiflu for 5 days. Given the Escalante catheter placement there was concern for possible bacterial infection as well Possible urinary tract infection Sent blood cultures, urine culture last night Started Rocephin #Hx of CAD stable, no chest pain continue aspirin, plavix, statin, metoprolol #COPD mild acute exacerbation with wheezing Improved continue peforomist, duonebs prn Continue pulmicort counselled on tobacco cessation #Urinary retention Has a history of enlarged prostate. Will maintain Escalante catheter #HTN continue metoprolol # Mobility The patient has significant imbalance. Has been working with PT. They're recommending continued therapy #DVT ppx SC lovenox
[2018-01-21] MEDS: Tamsulosin 0.4 MG Cap.ER PO SCH (18:19)
[2018-01-21] MEDS: Zolpidem 5 MG Tab PO PRN (20:43)
[2018-01-21] MEDS: atorvaSTATin 20 MG Tab PO SCH (20:44)
[2018-01-21] MEDS: guaiFENesin 100 MG/5 ML Soln 5 ML UD Cup PO PRN (21:40)
[2018-01-22] MEDS: cefTRIAXone 1 GM Vial IVPUSH SCH (00:51)
[2018-01-22] MEDS: Albuterol/Ipratropium 3.0-0.5 MG/3 ML Neb Soln NEB PRN ×2 (06:00→12:42)
[2018-01-22] MEDS: Budesonide 0.5 MG/2 ML Neb Susp NEB SCH ×3 (07:47→22:02)
[2018-01-22 07:53] LABS: CHLORIDE,CL 100 mmol/L (101-111); SODIUM,NA 135 mmol/L (135-145)
[2018-01-22] MEDS: Potassium Chloride 10 MEQ Tab.ER PO SCH (08:14)
[2018-01-22] MEDS: Metoprolol Tartrate 25 MG Tab PO SCH ×2 (09:19→21:57)
[2018-01-22] MEDS: Clopidogrel 75 MG Tab PO SCH (09:20)
[2018-01-22] MEDS: Finasteride 5 MG Tab PO SCH (09:20)
[2018-01-22] MEDS: Furosemide 20 MG Tab PO SCH (09:21)
[2018-01-22] MEDS: Oseltamivir 30 MG Cap PO SCH ×2 (09:22→22:02)
[2018-01-22] MEDS: Aspirin 81 MG Tab.EC PO SCH (09:22)
[2018-01-22] MEDS: Acetaminophen 325 MG Tab PO PRN ×3 (09:23→22:35)
[2018-01-22] MEDS: FORMOTEROL INH SCH ×2 (09:27→22:03)
[2018-01-22] MEDS: BUDESONIDE INH SCH ×2 (09:27→22:03)
[2018-01-22] MEDS: Enoxaparin 40 MG/0.4 ML Syringe SUBCUT SCH (09:30)
[2018-01-22] MEDS ORDERED: Calcium Carbonate 500 MG Tab.Chew PO PRN (10:29)
--- NOTE | 2018-01-22 10:38 | PCM.PN ---
- General Info Date of Service: 01/22/18 Admission Dx/Problem (Free Text): Admission Diagnosis/Problem Admission Diagnosis/Problem Influenza due to influenza A virus Subjective Update: resolved high fever, still low grade temps small hematuria noted slept better with ambien Has moderate left shoulder pain, worse with activity, this has been present before but has been exacerbated by the fall c/o epigastric pain with swallowing, cough, similar to heartburn that he has been having Functional Status: Reports: Pain Controlled - Review of Systems General: Reports: Fever, Weakness Pulmonary: Reports: Cough (non productive). Denies: Shortness of Breath Cardiovascular: Denies: Chest Pain Gastrointestinal: Reports: Abdominal Pain (epigastric) Neurological: Denies: Confusion - Patient Data Vitals - Most Recent: Last Vital Signs Temp 37.6 C 01/22/18 07:00 Pulse 78 01/22/18 09:19 Resp 20 01/22/18 07:00 BP 115/53 L 01/22/18 09:19 Pulse Ox 97 01/22/18 07:51 Weight - Most Recent: 60.781 kg I&O - Last 24 Hours: Intake & Output 01/21/18 01/22/18 01/22/18 21:59 06:59 14:59 Intake Total 120 Output Total Balance 120 Lab Results Last 24 Hours: Laboratory Results - last 24 hr 01/21/18 01/21/18 01/21/18 Range/Units 09:43 09:43 11:20 WBC 8.1 (5.0-10.0) 10^3/uL RBC 3.69 L (4.6-6.2) 10^6/uL Hgb 12.3 L (14.0-18.0) g/dL Hct 37.3 L (40.0-54.0) % MCV 101.1 H (80-100) fL MCH 33.3 (27.0-34.0) pg MCHC 33.0 (33.0-35.0) g/dL Plt Count 173 (150-450) 10^3/uL Neut % (Auto) 91.1 H (42.2-75.2) % Lymph % (Auto) 5.6 L (20.5-50.1) % Crosby % (Auto) 3.2 (2-8) % Eos % (Auto) 0.0 L (1.0-3.0) % Baso % (Auto) 0.1 (0.0-1.0) % Sodium 132 L (135-145) mmol/L Potassium 3.6 (3.6-5.0) mmol/L Chloride 97 L (101-111) mmol/L Carbon Dioxide 26.0 (21.0-31.0) mmol/L Anion Gap 12.6 BUN 21 H (7-18) mg/dL Creatinine 1.3 (0.6-1.3) mg/dL Est Cr Clr Drug Dosing 37.18 mL/min Estimated GFR (MDRD) 53 Glucose 151 H (74-105) mg/dL Calcium 8.5 (8.4-10.2) mg/dl Urine Color Dark yellow (YELLOW) Urine Appearance Cloudy (CLEAR) Urine pH 5.5 (5.0-9.0) Ur Specific Morton 1.010 (1.005-1.030) Urine Protein 30 H (NEGATIVE) Urine Glucose (UA) Negative (NEGATIVE) Urine Ketones Negative (NEGATIVE) Urine Occult Blood Moderate H (NEGATIVE) Urine Nitrite Negative (NEGATIVE) Urine Bilirubin Negative (NEGATIVE) Urine Urobilinogen 0.2 (0.2-1.0) mg/dL Ur Leukocyte Esterase Small H (NEGATIVE) Urine RBC >100 H /HPF Urine WBC 0-5 (0-5/HPF) /HPF Ur Epithelial Cells Rare /HPF Amorphous Sediment Rare (0/HPF) /HPF Urine Bacteria Rare (0-FEW/HPF) /HPF 01/22/18 01/22/18 Range/Units 07:26 07:26 WBC 8.6 (5.0-10.0) 10^3/uL RBC 3.53 L (4.6-6.2) 10^6/uL Hgb 11.8 L (14.0-18.0) g/dL Hct 35.7 L (40.0-54.0) % MCV 101.1 H (80-100) fL MCH 33.4 (27.0-34.0) pg MCHC 33.1 (33.0-35.0) g/dL Plt Count 171 (150-450) 10^3/uL Neut % (Auto) 84.9 H (42.2-75.2) % Lymph % (Auto) 8.6 L (20.5-50.1) % Crosby % (Auto) 6.4 (2-8) % Eos % (Auto) 0.0 L (1.0-3.0) % Baso % (Auto) 0.1 (0.0-1.0) % Sodium 135 (135-145) mmol/L Potassium 4.7 (3.6-5.0) mmol/L Chloride 100 L (101-111) mmol/L Carbon Dioxide 27.0 (21.0-31.0) mmol/L Anion Gap 12.7 BUN 19 H (7-18) mg/dL Creatinine 1.1 (0.6-1.3) mg/dL Est Cr Clr Drug Dosing 43.74 mL/min Estimated GFR (MDRD) > 60 Glucose 101 (74-105) mg/dL Calcium 8.7 (8.4-10.2) mg/dl Urine Color (YELLOW) Urine Appearance (CLEAR) Urine pH (5.0-9.0) Ur Specific Morton (1.005-1.030) Urine Protein (NEGATIVE) Urine Glucose (UA) (NEGATIVE) Urine Ketones (NEGATIVE) Urine Occult Blood (NEGATIVE) Urine Nitrite (NEGATIVE) Urine Bilirubin (NEGATIVE) Urine Urobilinogen (0.2-1.0) mg/dL Ur Leukocyte Esterase (NEGATIVE) Urine RBC /HPF Urine WBC (0-5/HPF) /HPF Ur Epithelial Cells /HPF Amorphous Sediment (0/HPF) /HPF Urine Bacteria (0-FEW/HPF) /HPF Adrián Results Last 24 Hours: Microbiology 01/21/18 11:20 Urine Culture - Preliminary Urine, Catheterized NO GROWTH AFTER 1 DAY 01/20/18 21:15 Aerobic Blood Culture - Preliminary Blood - Venous - Lab Draw NO GROWTH AFTER 1 DAY Anaerobic Blood Culture - Preliminary NO GROWTH AFTER 1 DAY 01/20/18 21:10 Aerobic Blood Culture - Preliminary Blood - Venous NO GROWTH AFTER 1 DAY Anaerobic Blood Culture - Final Med Orders - Current: Current Medications Acetaminophen (Tylenol) 650 mg PO Q4H PRN PRN Reason: fever Last Admin: 01/22/18 09:23 Dose: 650 mg Albuterol/Ipratropium (Duoneb 3.0-0.5 Mg/3 Ml) 3 ml NEB Q4H PRN PRN Reason: shortness of breath/wheezing Last Admin: 01/22/18 06:00 Dose: 3 ml Albuterol/Ipratropium (Duoneb 3.0-0.5 Mg/3 Ml) 3 ml NEB TID [facility] Aspirin (Halfprin) 81 mg PO DAILY [facility] Last Admin: 01/22/18 09:22 Dose: 81 mg Atorvastatin Calcium (Lipitor) 40 mg PO BEDTIME [facility] Last Admin: 01/21/18 20:44 Dose: 40 mg Budesonide (Pulmicort) 0.5 mg NEB BIDRT [facility] Last Admin: 01/22/18 07:47 Dose: 0.5 mg Calcium Carbonate/Glycine (Tums) 500 mg PO Q2H PRN PRN Reason: Heartburn Ceftriaxone Sodium (Rocephin) 1 gm IVPUSH Q24H [facility] Last Admin: 01/22/18 00:51 Dose: 1 gm Clopidogrel Bisulfate (Plavix) 75 mg PO DAILY [facility] Last Admin: 01/22/18 09:20 Dose: 75 mg Enoxaparin Sodium (Lovenox) 40 mg SUBCUT DAILY [facility] Last Admin: 01/22/18 09:30 Dose: 40 mg Finasteride (Proscar) 5 mg PO DAILY [facility] Last Admin: 01/22/18 09:20 Dose: 5 mg Furosemide (Lasix) 20 mg PO DAILY [facility] Last Admin: 01/22/18 09:21 Dose: 20 mg Guaifenesin (Robitussin) 100 mg PO Q6H PRN PRN Reason: Cough Last Admin: 01/21/18 21:40 Dose: 100 mg Azithromycin 500 mg/ Sodium (Chloride) 250 mls @ 250 mls/hr IV Q24H [facility] Metoprolol Tartrate (Lopressor) 12.5 mg PO BID [facility] Last Admin: 01/22/18 09:19 Dose: 12.5 mg Nitroglycerin (Nitrostat) 0.4 mg SL Q5M PRN PRN Reason: Chest Pain Oseltamivir Phosphate (Tamiflu) 30 mg PO BID [facility] Last Admin: 01/22/18 09:22 Dose: 30 mg Oxycodone HCl (Oxycodone) 5 mg PO Q4H PRN PRN Reason: Pain Last Admin: 01/21/18 02:04 Dose: 5 mg [facility]oprazole [facility] Budesonide/Formoterol [ Symbicort 80-4.5 Mcg ]Pt's Own Med 0 each INH BID [facility] Last Admin: 01/22/18 09:27 Dose: 2 each Potassium Chloride (Klor-Con 10) 20 meq PO WITHBREAKFAST [facility] Last Admin: 01/22/18 08:14 Dose: 20 meq Sodium Chloride (Saline Flush) 10 ml FLUSH ASDIRECTED PRN PRN Reason: Keep Vein Open Sodium Chloride (Saline Flush) 10 ml FLUSH ASDIRECTED PRN PRN Reason: Keep Vein Open Tamsulosin HCl (Flomax) 0.4 mg PO PCDINNER [facility] Last Admin: 01/21/18 18:19 Dose: 0.4 mg Zolpidem Tartrate (Ambien) 5 mg PO BEDTIME PRN PRN Reason: for sleep Last Admin: 01/21/18 20:43 Dose: 5 mg Discontinued Medications Acetaminophen (Tylenol) 650 mg PO NOW ONE Stop: 01/18/18 14:35 Last Admin: 01/18/18 14:39 Dose: 650 mg Acetaminophen (Tylenol) Confirm Administered Dose 650 mg .ROUTE .STK-MED ONE Stop: 01/18/18 14:37 Last Admin: 01/18/18 14:47 Dose: Not Given Albuterol/Ipratropium (Duoneb 3.0-0.5 Mg/3 Ml) 3 ml NEB ONETIME ONE Stop: 01/18/18 13:30 Last Admin: 01/18/18 13:49 Dose: 3 ml Ceftriaxone Sodium (Rocephin) 1 gm IVPUSH Q24H [facility] Last Admin: 01/21/18 05:23 Dose: Not Given Ceftriaxone Sodium (Rocephin) Confirm Administered Dose 1 gm .ROUTE .STK-MED ONE Stop: 01/21/18 00:42 Last Admin: 01/21/18 00:46 Dose: Not Given Oseltamivir Phosphate (Tamiflu) 75 mg PO BID [facility] Potassium Chloride (Klor-Con 10) 20 meq PO BIDMEALS [facility] Last Admin: 01/19/18 08:46 Dose: 20 meq Potassium Chloride (Klor-Con 10) 40 meq PO ONETIME ONE Stop: 01/19/18 09:23 Last Admin: 01/19/18 10:25 Dose: Not Given Potassium Chloride (Klor-Con 10) 40 meq PO ONETIME ONE Stop: 03/08/18 12:01 Last Admin: 01/19/18 12:19 Dose: 40 meq Trazodone HCl (Trazodone) 50 mg PO BEDTIME [facility] Last Admin: 01/20/18 22:02 Dose: 50 mg - Exam General: Alert, Oriented Neck: Supple Lungs: Normal Respiratory Effort, Decreased Breath Sounds. No: Wheezing Cardiovascular: Regular Rate, Regular Rhythm GI/Abdominal Exam: Normal Bowel Sounds, Soft, Tender (mild epigastric, ruq tenderness) (Male) Exam: Other (montgomery with mild hematuria) Extremities: No Pedal Edema Skin: Warm, Dry, Ecchymosis (lovenox administration sites, arms) Neurological: No New Focal Deficit, Other (+ tremor) Psy/Mental Status: Alert, Normal Affect - Problem List & Annotations (1) Acute bronchitis SNOMED Code(s): 49113452 Code(s): J20.9 - ACUTE BRONCHITIS, UNSPECIFIED Status: Acute Current Visit: No (2) Influenza A SNOMED Code(s): 115712205 Code(s): J10.1 - FLU DUE TO OTH IDENT INFLUENZA VIRUS W OTH RESP MANIFEST Status: Acute Current Visit: Yes - Problem List Review Problem List Initiated/Reviewed/Updated: Yes - My Orders Last 24 Hours: My Active Orders 01/21/18 10:27 Zolpidem [Ambien] 5 mg PO BEDTIME PRN 01/21/18 11:20 CULTURE URINE [RM] Routine 01/22/18 10:29 Calcium Carbonate [Tums] 500 mg PO Q2H PRN 01/22/18 10:30 Azithromycin [Zithromax] 500 mg Sodium Chloride 0.9% [Normal Saline] 250 ml IV Q24H Pantoprazole [ProTONIX] 40 mg PO BIDAC 01/22/18 10:32 RT Aerosol Therapy [RC] ASDIRECTED 01/22/18 14:00 Albuterol/Ipratropium [DuoNeb 3.0-0.5 MG/3 ML] 3 ml NEB TID 01/23/18 05:11 Chest 1V Frontal [CR] AM - Plan Plan:: 82 yo M with PMH of multivessel CAD with IA s/p stents, CHF, COPD, smoker, hypertension, BPH who presents with fever, cough, SOB and weakness. #SOB, fever, cough Influenza A positive Developed high fever yesterday associated with tremors, rigors Symptomatic mgt: Tylenol PRN fever Tamiflu for 5 days. Given the Montgomery catheter placement there was concern for possible bacterial infection as well Possible urinary tract infection Sent blood cultures, urine culture - neg for now Started Rocephin add azithro given the continued fever check CXR #Abdominal pain Possible gastroesophageal reflux disease, ulcer We'll check liver enzymes, lipase Start Protonix, Tums #Hx of CAD stable, no chest pain continue aspirin, plavix, statin, metoprolol #COPD mild acute exacerbation with wheezing Improved continue duonebs Continue pulmicort counselled on tobacco cessation #Urinary retention Has a history of enlarged prostate. Will maintain Montgomery catheter #HTN continue metoprolol # Mobility The patient has significant imbalance. Has been working with PT. They were recommending continued therapy #DVT ppx SC lovenox
[2018-01-22] MEDS: Pantoprazole 40 MG Tab.CR PO SCH ×2 (10:58→16:37)
[2018-01-22] MEDS: Azithromycin 500 MG in Sodium Chloride 0.9% 250 ML IV SCH (11:00)
[2018-01-22] MEDS: Albuterol/Ipratropium 3.0-0.5 MG/3 ML Neb Soln NEB SCH ×2 (15:18→22:02)
[2018-01-22] MEDS: guaiFENesin 100 MG/5 ML Soln 5 ML UD Cup PO PRN ×2 (16:37→22:35)
[2018-01-22] MEDS: Tamsulosin 0.4 MG Cap.ER PO SCH (18:21)
[2018-01-22] MEDS: atorvaSTATin 20 MG Tab PO SCH (21:57)
[2018-01-22] MEDS: Zolpidem 5 MG Tab PO PRN (22:01)
[2018-01-23] MEDS: cefTRIAXone 1 GM Vial IVPUSH SCH (00:10)
[2018-01-23] MEDS: Pantoprazole 40 MG Tab.CR PO SCH (06:42)
[2018-01-23 06:58] LABS: CHLORIDE,CL 102 mmol/L (101-111); SODIUM,NA 136 mmol/L (135-145)
[2018-01-23] MEDS: Budesonide 0.5 MG/2 ML Neb Susp NEB SCH (07:14)
[2018-01-23] MEDS: Albuterol/Ipratropium 3.0-0.5 MG/3 ML Neb Soln NEB SCH (07:15)
[2018-01-23] MEDS: Finasteride 5 MG Tab PO SCH (08:31)
[2018-01-23] MEDS: Potassium Chloride 10 MEQ Tab.ER PO SCH (08:31)
[2018-01-23] MEDS: Metoprolol Tartrate 25 MG Tab PO SCH (08:31)
[2018-01-23] MEDS: Enoxaparin 40 MG/0.4 ML Syringe SUBCUT SCH (08:33)
[2018-01-23] MEDS: Clopidogrel 75 MG Tab PO SCH (08:33)
[2018-01-23] MEDS: Furosemide 20 MG Tab PO SCH (08:33)
[2018-01-23] MEDS: Aspirin 81 MG Tab.EC PO SCH (08:33)
[2018-01-23] MEDS: FORMOTEROL INH SCH (08:34)
[2018-01-23] MEDS: BUDESONIDE INH SCH (08:34)
--- NOTE | 2018-01-23 09:23 | CR ---
Clinical history: 82-year-old male fever Interpretation: Upright AP portable chest reveals Normal cardiac silhouette and pulmonary vascularity . No cephalization of flow, signs of alveolar edema or dependent pleural effusion. Left-sided aortic arch. No lung mass, hilar lymphadenopathy or focal lobar pneumonia. No atelectasis/collapse. No pneumothorax. (Evidence previous surgery and chronic arthritic changes right shoulder). CONCLUSION: No acute cardiopulmonary abnormality.
[2018-01-23] MEDS ORDERED: Azithromycin 500 MG in Sodium Chloride 0.9% 250 ML IV SCH (11:00)
--- NOTE | 2018-01-23 11:12 | PCM.DCSUM1 ---
Discharge Summary - Hospital Course Free Text/Narrative:: 82 yo M with PMH of multivessel CAD with [place] s/p stents, CHF, COPD, smoker, hypertension, BPH who presents with fever, cough, SOB and weakness. #SOB, fever, cough Influenza A positive Developed high fever yesterday associated with tremors, rigors Symptomatic mgt: Tylenol PRN fever Tamiflu for 5 days. Given the Escal[place] catheter placement and recurrent fever there was concern for possible bacterial infection as well Possible urinary tract infection Sent blood cultures, urine culture - neg for now Started Rocephin, azithro #Abdominal pain resolved cont Protonix, Tums #Hx of CAD stable, no chest pain continue aspirin, plavix, statin, metoprolol #COPD mild acute exacerbation with wheezing Improved continue duonebs Continue pulmicort counselled on tobacco cessation #Urinary retention Has a history of enlarged prostate. has minor hematuria Will maintain Escalante catheter #HTN continue metoprolol # Mobility The patient has significant imbalance. Has been working with PT. They were recommending continued therapy in swing bed setting will also set up out pt Neuro eval for tremor #DVT ppx was with SC lovenox - Discharge Data Discharge Date: 01/23/18 Discharge Disposition: DC/Tfer W/I Hosp To Swing 61 Condition: Fair - Discharge Diagnosis/Problem(s) (1) Acute bronchitis SNOMED Code(s): 66933032 ICD Code: J20.9 - ACUTE BRONCHITIS, UNSPECIFIED Status: Acute Current Visit: No (2) Influenza A SNOMED Code(s): 630914766 ICD Code: J10.1 - FLU DUE TO OTH IDENT INFLUENZA VIRUS W OTH RESP MANIFEST Status: Acute Current Visit: Yes - Patient Instructions Diet: Heart Healthy Diet Activity: As Tolerated - Discharge Plan Home Medications: Home Meds Finasteride 5 mg PO DAILY 07/04/15 [History] Tamsulosin HCl 0.4 mg PO PCDINNER 07/04/15 [History] Aspirin [Adult Low Dose Aspirin EC] 81 mg PO DAILY 02/20/16 [History] Clopidogrel [Plavix] 1 tab PO DAILY 02/20/16 [History] Metoprolol Tartrate 12.5 mg PO BID 02/20/16 [History] Nitroglycerin [Nitrostat] 1 tab SL ASDIRECTED 02/20/16 [History] atorvaSTATin [Lipitor] 40 mg PO BEDTIME 02/20/16 [History] Furosemide [Lasix] 20 mg PO DAILY 02/29/16 [History] Albuterol [Ventolin HFA] 2 puff INH Q6HR PRN 09/26/17 [History] Budesonide/Formoterol [Symbicort 80-4.5 MCG] 2 puff INH BID 09/26/17 [History] Acetaminophen [Tylenol Extra Strength] 1,000 mg PO BID PRN 01/18/18 [History] Acetaminophen [Tylenol] 650 mg PO Q4H PRN tablet 01/23/18 [Rx] Albuterol/Ipratropium [DuoNeb 3.0-0.5 MG/3 ML] 3 ml NEB Q4H PRN neb 01/23/18 [ Rx] Albuterol/Ipratropium [DuoNeb 3.0-0.5 MG/3 ML] 3 ml NEB TIDRT neb 01/23/18 [Rx] Azithromycin [Zithromax] 500 mg IV Q24H vial 01/23/18 [Rx] Enoxaparin [Lovenox] 40 mg SUBCUT DAILY syringe 01/23/18 [Rx] Pantoprazole [ProTONIX] 40 mg PO BIDAC tab.cr 01/23/18 [Rx] Potassium Chloride [Klor-Con 10] 20 meq PO WITHBREAKFAST tab.er 01/23/18 [Rx] cefTRIAXone [Rocephin] 1 gm IVPUSH Q24H vial 01/23/18 [Rx] oxyCODONE 5 mg PO Q4H PRN #0 tablet 01/23/18 [Rx] - General Info Date of Service: 01/23/18 Admission Dx/Problem (Free Text: Admission Diagnosis/Problem Admission Diagnosis/Problem Influenza due to influenza A virus Subjective Update: resolved high fever, still low grade temps small hematuria noted slept well with ambien Has moderate left shoulder pain, worse with activity, this has been present before but has been exacerbated by the fall - Review of Systems General: Reports: Fever (low grade), Weakness Pulmonary: Reports: Shortness of Breath, Cough Cardiovascular: Denies: Chest Pain Gastrointestinal: Denies: Abdominal Pain Neurological: Denies: Confusion - Patient Data Vitals - Most Recent: Last Vital Signs Temp 36.8 C 01/23/18 08:09 Pulse 84 03/12/18 08:31 Resp 20 01/23/18 08:09 BP 104/50 L 01/23/18 08:31 Pulse Ox 98 01/23/18 08:09 Weight - Most Recent: 59.931 kg I&O - Last 24 hours: Intake & Output 01/22/18 01/23/18 01/23/18 22:59 06:59 14:59 Intake Total 575 250 365 Output Total 1250 750 Balance -675 -500 365 Lab Results - Last 24 hrs: Laboratory Results - last 24 hr 01/23/18 01/23/18 Range/Units 06:20 06:20 WBC 6.1 (5.0-10.0) 10^3/uL RBC 3.30 L (4.6-6.2) 10^6/uL Hgb 11.0 L (14.0-18.0) g/dL Hct 33.3 L (40.0-54.0) % MCV 100.9 H (80-100) fL MCH 33.3 (27.0-34.0) pg MCHC 33.0 (33.0-35.0) g/dL Plt Count 170 (150-450) 10^3/uL Neut % (Auto) 77.1 H (42.2-75.2) % Lymph % (Auto) 14.9 L (20.5-50.1) % Mcduffie % (Auto) 7.6 (2-8) % Eos % (Auto) 0.2 L (1.0-3.0) % Baso % (Auto) 0.2 (0.0-1.0) % Sodium 136 (135-145) mmol/L Potassium 4.3 (3.6-5.0) mmol/L Chloride 102 (101-111) mmol/L Carbon Dioxide 25.0 (21.0-31.0) mmol/L Anion Gap 13.3 BUN 15 (7-18) mg/dL Creatinine 1.0 (0.6-1.3) mg/dL Est Cr Clr Drug Dosing 47.45 mL/min Estimated GFR (MDRD) > 60 Glucose 96 (74-105) mg/dL Calcium 8.7 (8.4-10.2) mg/dl Total Bilirubin 0.7 (0.2-1.0) mg/dL Direct Bilirubin 0.2 (0.0-0.2) mg/dL Indirect Bilirubin 0.5 AST 43 H (10-42) IU/L ALT 29 (10-60) IU/L Alkaline Phosphatase 54 (42-121) IU/L Total Protein 6.2 L (6.7-8.2) g/dl Albumin 3.0 L (3.2-5.5) g/dl Globulin 3.2 Albumin/Globulin Ratio 0.94 CINDY Results - Last 24 hrs: Microbiology 01/21/18 11:20 Urine Culture - Final Urine, Catheterized NO GROWTH AFTER 2 DAYS 01/20/18 21:15 Aerobic Blood Culture - Preliminary Blood - Venous - Lab Draw NO GROWTH AFTER 2 DAYS Anaerobic Blood Culture - Preliminary NO GROWTH AFTER 2 DAYS 01/20/18 21:10 Aerobic Blood Culture - Preliminary Blood - Venous NO GROWTH AFTER 2 DAYS Anaerobic Blood Culture - Final Med Orders - Current: Current Medications Acetaminophen (Tylenol) 650 mg PO Q4H PRN PRN Reason: fever Last Admin: 01/22/18 22:35 Dose: 650 mg Albuterol/Ipratropium (Duoneb 3.0-0.5 Mg/3 Ml) 3 ml NEB Q4H PRN PRN Reason: shortness of breath/wheezing Last Admin: 01/22/18 12:42 Dose: 3 ml Albuterol/Ipratropium (Duoneb 3.0-0.5 Mg/3 Ml) 3 ml NEB TIDRT [facility] Last Admin: 01/23/18 07:15 Dose: 3 ml Aspirin (Halfprin) 81 mg PO DAILY [facility] Last Admin: 01/23/18 08:33 Dose: 81 mg Atorvastatin Calcium (Lipitor) 40 mg PO BEDTIME [facility] Last Admin: 01/22/18 21:57 Dose: 40 mg Budesonide (Pulmicort) 0.5 mg NEB BIDRT [facility] Last Admin: 01/23/18 07:14 Dose: 0.5 mg Calcium Carbonate/Glycine (Tums) 500 mg PO Q2H PRN PRN Reason: Heartburn Last Admin: 01/22/18 10:59 Dose: 500 mg Ceftriaxone Sodium (Rocephin) 1 gm IVPUSH Q24H [facility] Last Admin: 01/23/18 00:10 Dose: 1 gm Clopidogrel Bisulfate (Plavix) 75 mg PO DAILY [facility] Last Admin: 01/23/18 08:33 Dose: 75 mg Enoxaparin Sodium (Lovenox) 40 mg SUBCUT DAILY [facility] Last Admin: 01/23/18 08:33 Dose: 40 mg Finasteride (Proscar) 5 mg PO DAILY [facility] Last Admin: 01/23/18 08:31 Dose: 5 mg Furosemide (Lasix) 20 mg PO DAILY [facility] Last Admin: 01/23/18 08:33 Dose: 20 mg Guaifenesin (Robitussin) 100 mg PO Q6H PRN PRN Reason: Cough Last Admin: 01/22/18 22:35 Dose: 100 mg Azithromycin 500 mg/ Sodium (Chloride) 250 mls @ 250 mls/hr IV Q24H [facility] Last Infusion: 01/22/18 17:03 Dose: Infused Metoprolol Tartrate (Lopressor) 12.5 mg PO BID [facility] Last Admin: 01/23/18 08:31 Dose: 12.5 mg Nitroglycerin (Nitrostat) 0.4 mg SL Q5M PRN PRN Reason: Chest Pain Oseltamivir Phosphate (Tamiflu) 30 mg PO BID [facility] Last Admin: 01/22/18 22:02 Dose: 30 mg Oxycodone HCl (Oxycodone) 5 mg PO Q4H PRN PRN Reason: Pain Last Admin: 01/21/18 02:04 Dose: 5 mg Pantoprazole Sodium (Protonix) 40 mg PO BIDAC [facility] Last Admin: 01/23/18 06:42 Dose: 40 mg Budesonide/Formoterol [ Symbicort 80-4.5 Mcg ]Pt's Own Med 0 each INH BID [facility] Last Admin: 01/23/18 08:34 Dose: 1 each Potassium Chloride (Klor-Con 10) 20 meq PO WITHBREAKFAST [facility] Last Admin: 01/23/18 08:31 Dose: 20 meq Sodium Chloride (Saline Flush) 10 ml FLUSH ASDIRECTED PRN PRN Reason: Keep Vein Open Last Admin: 01/22/18 11:00 Dose: 10 ml Sodium Chloride (Saline Flush) 10 ml FLUSH ASDIRECTED PRN PRN Reason: Keep Vein Open Tamsulosin HCl (Flomax) 0.4 mg PO PCDINNER [facility] Last Admin: 01/22/18 18:21 Dose: 0.4 mg Zolpidem Tartrate (Ambien) 5 mg PO BEDTIME PRN PRN Reason: for sleep Last Admin: 01/22/18 22:01 Dose: 5 mg Discontinued Medications Acetaminophen (Tylenol) 650 mg PO NOW ONE Stop: 01/18/18 14:35 Last Admin: 01/18/18 14:39 Dose: 650 mg Acetaminophen (Tylenol) Confirm Administered Dose 650 mg .ROUTE .STK-MED ONE Stop: 01/18/18 14:37 Last Admin: 01/18/18 14:47 Dose: Not Given Albuterol/Ipratropium (Duoneb 3.0-0.5 Mg/3 Ml) 3 ml NEB ONETIME ONE Stop: 01/18/18 13:30 Last Admin: 01/18/18 13:49 Dose: 3 ml Budesonide (Pulmicort) 0.5 mg NEB BIDRT [facility] Last Admin: 01/22/18 18:25 Dose: Not Given Ceftriaxone Sodium (Rocephin) 1 gm IVPUSH Q24H [facility] Last Admin: 01/21/18 05:23 Dose: Not Given Ceftriaxone Sodium (Rocephin) Confirm Administered Dose 1 gm .ROUTE .STK-MED ONE Stop: 01/21/18 00:42 Last Admin: 01/21/18 00:46 Dose: Not Given Oseltamivir Phosphate (Tamiflu) 75 mg PO BID [facility] Potassium Chloride (Klor-Con 10) 20 meq PO BIDMEALS [facility] Last Admin: 01/19/18 08:46 Dose: 20 meq Potassium Chloride (Klor-Con 10) 40 meq PO ONETIME ONE Stop: 01/19/18 09:23 Last Admin: 01/19/18 10:25 Dose: Not Given Potassium Chloride (Klor-Con 10) 40 meq PO ONETIME ONE Stop: 01/19/18 12:01 Last Admin: 01/19/18 12:19 Dose: 40 meq Trazodone HCl (Trazodone) 50 mg PO BEDTIME [facility] Last Admin: 01/20/18 22:02 Dose: 50 mg - Exam Quality Assessment: Reports: Supplemental Oxygen General: Reports: Alert, Oriented Neck: Reports: Supple Lungs: Reports: Decreased Breath Sounds Cardiovascular: Reports: Regular Rate, Regular Rhythm GI/Abdominal Exam: Normal Bowel Sounds, Soft, Non-Tender Extremities: No Pedal Edema Skin: Reports: Ecchymosis Neurological: Reports: Other (tremor) Psy/Mental Status: Reports: Alert, Normal Affect, Normal Mood *Q Meaningful Use (DIS) - VTE *Q VTE Criteria *Q: - Stroke *Q Stroke Criteria *Q: - AMI *Q AMI Criteria *Q:
[2018-01-23] MEDS: Oseltamivir 30 MG Cap PO SCH (11:14)
[2018-01-23] MEDS: Azithromycin 500 MG in Sodium Chloride 0.9% 250 ML IV SCH (15:32)
== END 2018-01-23 12:21 | disposition swing bed (61) | DRG 194 ==
LOC: DL.ED 13:15 → UNDOADMOB 15:08 → INTOOBSV 15:08 → DL.MS 15:08 → OBSVTOIN 01-19 15:26 → EDUNIT# 01-19 15:26
PROVIDERS: ADMIT Hospitalist; ATTEND Hospitalist
DX: J11.1 Influenza due to unidentified influenza virus with other respiratory manifestations (principal); M79.622 Pain in left upper arm; J10.1 Influenza due to other identified influenza virus with other respiratory manifestations; H33.21 Serous retinal detachment, right eye; N39.0 Urinary tract infection, site not specified; J44.0 Chronic obstructive pulmonary disease with (acute) lower respiratory infection; J44.9 Chronic obstructive pulmonary disease, unspecified; J44.1 Chronic obstructive pulmonary disease with (acute) exacerbation; J20.9 Acute bronchitis, unspecified; R31.9 Hematuria, unspecified; M25.512 Pain in left shoulder; W18.30XA Fall on same level, unspecified, initial encounter; Y92.002 Bathroom of unspecified non-institutional (private) residence as the place of occurrence of the external cause; R10.9 Unspecified abdominal pain; N40.1 Benign prostatic hyperplasia with lower urinary tract symptoms; R33.8 Other retention of urine; R26.89 Other abnormalities of gait and mobility; I25.10 Atherosclerotic heart disease of native coronary artery without angina pectoris; I11.0 Hypertensive heart disease with heart failure; I50.9 Heart failure, unspecified; Z95.5 Presence of coronary angioplasty implant and graft; Z87.891 Personal history of nicotine dependence; I25.2 Old myocardial infarction; Z79.02 Long term (current) use of antithrombotics/antiplatelets; Z79.82 Long term (current) use of aspirin; Z79.899 Other long term (current) drug therapy
CPT/HCPCS: 36415 ×2; 71045; 73060; 80048; 80053; 81001; 82550; 82553; 83605; 83880; 84484; 85025 ×2; 85610; 87040 ×2; 87804 ×2; 93005; 93010; 94640 ×3; 94667; 99284; 99285; A9270 ×19; J1650; 80076; 82962; 87086; 94668; 96372; 97116-GP; 97162-GP; G0378; J0456; J0696; J7050

== ENCOUNTER 2018-01-23 12:40 | Inpatient (IN) | payer MEDICARE, BC ==
[2018-01-23] MEDS ORDERED: Azithromycin 500 MG Vial IV SCH (12:45)
--- NOTE | 2018-01-23 12:56 | PCM.HP ---
H&P History of Present Illness - General Date of Service: 01/23/18 Admit Problem/Dx: Admission Diagnosis/Problem Admission Diagnosis/Problem Weakness Source of Information: Patient, Family - History of Present Illness Initial Comments - Free Text/Narative: admitted to acute care treated for influenza, urinary retention, copd exacerbation transfered to swing bed for pt/ot for weakness - Related Data Allergies/Adverse Reactions: Allergies Allergy/AdvReac Type Severity Reaction Status Date / Time No Known Allergies Allergy Unverified 01/18/18 15:31 Home Medications: Home Meds Finasteride 5 mg PO DAILY 07/04/15 [History] Tamsulosin HCl 0.4 mg PO PCDINNER 07/04/15 [History] Aspirin [Adult Low Dose Aspirin EC] 81 mg PO DAILY 02/20/16 [History] Clopidogrel [Plavix] 1 tab PO DAILY 02/20/16 [History] Metoprolol Tartrate 12.5 mg PO BID 02/20/16 [History] Nitroglycerin [Nitrostat] 1 tab SL ASDIRECTED 02/20/16 [History] atorvaSTATin [Lipitor] 40 mg PO BEDTIME 02/20/16 [History] Furosemide [Lasix] 20 mg PO DAILY 02/29/16 [History] Albuterol [Ventolin HFA] 2 puff INH Q6HR PRN 09/26/17 [History] Budesonide/Formoterol [Symbicort 80-4.5 MCG] 2 puff INH BID 09/26/17 [History] Acetaminophen [Tylenol Extra Strength] 1,000 mg PO BID PRN 01/18/18 [History] Acetaminophen [Tylenol] 650 mg PO Q4H PRN tablet 01/23/18 [Rx] Albuterol/Ipratropium [DuoNeb 3.0-0.5 MG/3 ML] 3 ml NEB Q4H PRN neb 01/23/18 [ Rx] Albuterol/Ipratropium [DuoNeb 3.0-0.5 MG/3 ML] 3 ml NEB TIDRT neb 01/23/18 [Rx] Azithromycin [Zithromax] 500 mg IV Q24H vial 01/23/18 [Rx] Enoxaparin [Lovenox] 40 mg SUBCUT DAILY syringe 01/23/18 [Rx] Pantoprazole [ProTONIX] 40 mg PO BIDAC tab.cr 01/23/18 [Rx] Potassium Chloride [Klor-Con 10] 20 meq PO WITHBREAKFAST tab.er 01/23/18 [Rx] cefTRIAXone [Rocephin] 1 gm IVPUSH Q24H vial 01/23/18 [Rx] oxyCODONE 5 mg PO Q4H PRN #0 tablet 01/23/18 [Rx] Past Medical History Gastrointestinal History: Reports: Cholelithiasis Genitourinary History: Reports: Prostate Disorder Musculoskeletal History: Reports: Arthritis, Fracture Neurological History: Reports: None Psychiatric History: Reports: None Endocrine/Metabolic History: Reports: None Hematologic History: Reports: None Immunologic History: Reports: None Oncologic (Cancer) History: Reports: None - Infectious Disease History Infectious Disease History: Reports: None - Past Surgical History HEENT Surgical History: Reports: Detached Retina Respiratory Surgical History: Reports: None GI Surgical History: Reports: Appendectomy, Cholecystectomy Male Surgical History: Reports: None Endocrine Surgical History: Reports: None Neurological Surgical History: Reports: None Musculoskeletal Surgical History: Reports: Shoulder Surgery Social & Family History - Tobacco Use Packs/Tins Daily: 3 Used Tobacco, but Quit: Yes Month Tobacco Last Used: oct, 1998 - Caffeine Use Caffeine Use: Reports: Coffee, Soda H&P Review of Systems - Review of Systems: Review Of Systems: See Below General: Reports: Fever (low grade) Pulmonary: Reports: Shortness of Breath Cardiovascular: Denies: Chest Pain, Edema Gastrointestinal: Denies: Abdominal Pain Genitourinary: Reports: Hematuria Exam - Exam Exam: See Below - Exam Quality Assessment: Supplemental Oxygen General: Alert, Oriented Neck: Supple Lungs: Normal Respiratory Effort, Decreased Breath Sounds Cardiovascular: Regular Rate, Regular Rhythm GI/Abdominal Exam: Normal Bowel Sounds, Soft, Non-Tender Extremities: No Pedal Edema Skin: Warm, Ecchymosis Neuro Extensive - Mental Status: Alert, Oriented x3, Normal Mood/Affect *Q Meaningful Use (ADM) - VTE *Q VTE Criteria *Q: - Stroke *Q Stroke Criteria *Q: - AMI *Q AMI Criteria *Q: - Problem List (1) Acute bronchitis SNOMED Code(s): 38995461 ICD Code: J20.9 - ACUTE BRONCHITIS, UNSPECIFIED Status: Acute Current Visit: No (2) Influenza A SNOMED Code(s): 066958370 ICD Code: J10.1 - FLU DUE TO OTH IDENT INFLUENZA VIRUS W OTH RESP MANIFEST Status: Acute Current Visit: No Problem List Initiated/Reviewed/Updated: Yes Orders Last 24hrs: Active Orders 24 hr Category Date Time Status Patient Status [ADT] Routine ADT 01/23/18 12:51 Ordered Antiembolic Devices [RC] PER UNIT ROUTINE Care 01/23/18 12:53 Ordered Oxygen Therapy [RC] PRN Care 01/23/18 12:51 Ordered Peripheral IV Care [RC] . DIRECTED Care 01/23/18 12:53 Ordered RT Aerosol Therapy [RC] ASDIRECTED Care 01/23/18 12:50 Ordered Up With Assistance [RC] ASDIRECTED Care 01/23/18 12:51 Ordered VTE/DVT Education [RC] PER UNIT ROUTINE Care 01/23/18 12:51 Ordered Vital Signs [RC] QSHIFT Care 01/23/18 12:51 Ordered OT Evaluation and Treatment [CONS] Routine Cons 01/23/18 12:54 Ordered PT Evaluation and Treatment [CONS] Routine Cons 01/23/18 12:54 Ordered Regular Diet [DIET] Diet 01/23/18 Dinner Ordered Acetaminophen [Tylenol] Med 01/23/18 12:45 Ordered 650 mg PO Q4H PRN Albuterol [Proventil HFA] Med 01/23/18 12:45 Ordered 2 puff INH Q6HR PRN Albuterol/Ipratropium [DuoNeb 3.0-0.5 MG/3 ML] Med 01/23/18 12:45 Ordered 3 ml NEB Q4H PRN Albuterol/Ipratropium [DuoNeb 3.0-0.5 MG/3 ML] Med 01/23/18 15:00 Ordered 3 ml NEB TIDRT Aspirin [Halfprin] Med 01/24/18 09:00 Ordered 81 mg PO DAILY Azithromycin [Zithromax] Med 01/23/18 12:45 Ordered 500 mg IV Q24H Budesonide [Pulmicort] Med 01/23/18 18:00 Ordered 0.5 mg NEB BIDRT Clopidogrel [Plavix] Med 01/24/18 09:00 Ordered 1 tab PO DAILY Enoxaparin [Lovenox] Med 01/24/18 09:00 Ordered 40 mg SUBCUT DAILY Finasteride [Proscar] Med 01/24/18 09:00 Ordered 5 mg PO DAILY Furosemide [Lasix] Med 01/24/18 09:00 Ordered 20 mg PO DAILY Metoprolol Tartrate [Lopressor] Med 01/23/18 21:00 Ordered 12.5 mg PO BID Oseltamivir [Tamiflu] Med 01/23/18 21:00 Ordered 30 mg PO BID Pantoprazole [ProTONIX] Med 01/23/18 17:00 Ordered 40 mg PO BIDAC Potassium Chloride [Klor-Con 10] Med 01/24/18 08:00 Ordered 20 meq PO WITHBREAKFAST Sodium Chloride 0.9% [Saline Flush] Med 01/23/18 12:51 Ordered 10 ml FLUSH ASDIRECTED PRN Tamsulosin [Flomax] Med 01/23/18 18:30 Ordered 0.4 mg PO PCDINNER Zolpidem [Ambien] Med 01/23/18 12:51 Ordered 5 mg PO BEDTIME PRN atorvaSTATin [Lipitor] Med 01/23/18 21:00 Ordered 40 mg PO BEDTIME cefTRIAXone [Rocephin] Med 01/23/18 12:45 Ordered 1 gm IVPUSH Q24H oxyCODONE Med 01/23/18 12:45 Ordered 5 mg PO Q4H PRN Antiembolic Hose [OM.PC] Per Unit Routine Oth 01/23/18 12:52 Ordered Peripheral IV Insertion Adult [OM.PC] Routine Oth 01/23/18 12:51 Ordered Saline Lock Insert [OM.PC] Routine Oth 01/23/18 12:51 Ordered Resuscitation Status Routine Resus Stat 01/23/18 12:51 Ordered Medication Orders Acetaminophen (Tylenol) 650 mg PO Q4H PRN PRN Reason: fever Albuterol (Proventil Hfa) gm INH Q6HR PRN PRN Reason: Dyspnea Albuterol/Ipratropium (Duoneb 3.0-0.5 Mg/3 Ml) 3 ml NEB Q4H PRN PRN Reason: shortness of breath/wheezing Albuterol/Ipratropium (Duoneb 3.0-0.5 Mg/3 Ml) 3 ml NEB TIDRT MARIE Aspirin (Halfprin) 81 mg PO DAILY MARIE Azithromycin (Zithromax) 500 mg IV Q24H MARIE Budesonide (Pulmicort) 0.5 mg NEB BIDRT [facility] Ceftriaxone Sodium (Rocephin) 1 gm IVPUSH Q24H MARIE Clopidogrel Bisulfate (Plavix) mg PO DAILY [facility] Enoxaparin Sodium (Lovenox) 40 mg SUBCUT DAILY [facility] Finasteride (Proscar) 5 mg PO DAILY [facility] Furosemide (Lasix) 20 mg PO DAILY [facility] Metoprolol Tartrate (Lopressor) 12.5 mg PO BID [facility] Non-Formulary Medication (Atorvastatin [Lipitor]) 40 mg PO BEDTIME [facility] Oseltamivir Phosphate (Tamiflu) 30 mg PO BID [facility] Stop: 01/25/18 09:01 Oxycodone HCl (Oxycodone) 5 mg PO Q4H PRN PRN Reason: Pain Pantoprazole Sodium (Protonix) 40 mg PO BIDAC MARIE Potassium Chloride (Klor-Con 10) 20 meq PO WITHBREAKFAST [facility] Tamsulosin HCl (Flomax) 0.4 mg PO PCDINNER [facility] Assessment/Plan Comment:: 82 yo M with PMH of multivessel CAD with NV s/p stents, CHF, COPD, smoker, hypertension, BPH who presents with fever, cough, SOB and weakness. #SOB, fever, cough Influenza A positive Developed high fever yesterday associated with tremors, rigors Symptomatic mgt: Tylenol PRN fever Tamiflu for 5 days. Given the Escalante catheter placement and recurrent fever there was concern for possible bacterial infection as well Possible urinary tract infection Sent blood cultures, urine culture - neg for now Started Rocephin, azithro #Abdominal pain resolved cont Protonix, Tums #Hx of CAD stable, no chest pain continue aspirin, plavix, statin, metoprolol #COPD mild acute exacerbation with wheezing Improved continue duonebs Continue pulmicort counselled on tobacco cessation #Urinary retention Has a history of enlarged prostate. has minor hematuria Will maintain Escalante catheter #HTN continue metoprolol # Mobility The patient has significant imbalance. Has been working with PT. They were recommending continued therapy in swing bed setting will also set up out pt Neuro eval for tremor #DVT ppx was with [place] lovenox
[2018-01-23] MEDS: Albuterol/Ipratropium 3.0-0.5 MG/3 ML Neb Soln NEB SCH ×2 (14:50→20:28)
[2018-01-23] MEDS: Pantoprazole 40 MG Tab.CR PO SCH (16:36)
[2018-01-23] MEDS: Tamsulosin 0.4 MG Cap.ER PO SCH (18:06)
[2018-01-23] MEDS: Budesonide 0.5 MG/2 ML Neb Susp NEB SCH (18:21)
[2018-01-23] MEDS: Acetaminophen 325 MG Tab PO PRN (20:18)
[2018-01-23] MEDS: Zolpidem 5 MG Tab PO PRN (20:18)
[2018-01-23] MEDS: Oseltamivir 30 MG Cap PO SCH (20:20)
[2018-01-23] MEDS: atorvaSTATin 20 MG Tab PO SCH (20:21)
[2018-01-23] MEDS: Metoprolol Tartrate 25 MG Tab PO SCH (20:21)
[2018-01-23] MEDS: Sodium Chloride 0.9% 10 ML Syringe FLUSH PRN (23:43)
[2018-01-23] MEDS: cefTRIAXone 1 GM Vial IVPUSH SCH (23:43)
[2018-01-24] MEDS: Pantoprazole 40 MG Tab.CR PO SCH ×2 (05:34→17:45)
[2018-01-24] MEDS: Budesonide 0.5 MG/2 ML Neb Susp NEB SCH ×2 (07:38→17:29)
[2018-01-24] MEDS: Albuterol/Ipratropium 3.0-0.5 MG/3 ML Neb Soln NEB SCH ×3 (07:38→20:38)
[2018-01-24] MEDS: Oseltamivir 30 MG Cap PO SCH ×2 (08:49→21:28)
[2018-01-24] MEDS: Finasteride 5 MG Tab PO SCH (08:49)
[2018-01-24] MEDS: Clopidogrel 75 MG Tab PO SCH (08:49)
[2018-01-24] MEDS: Potassium Chloride 10 MEQ Tab.ER PO SCH (08:49)
[2018-01-24] MEDS: Aspirin 81 MG Tab.EC PO SCH (08:50)
[2018-01-24] MEDS: Enoxaparin 40 MG/0.4 ML Syringe SUBCUT SCH (08:50)
[2018-01-24] MEDS: Furosemide 20 MG Tab PO SCH (08:50)
[2018-01-24] MEDS: Metoprolol Tartrate 25 MG Tab PO SCH ×2 (08:51→21:26)
[2018-01-24] MEDS: oxyCODONE 5 MG Tab PO PRN (10:33)
[2018-01-24] MEDS: Azithromycin 500 MG in Sodium Chloride 0.9% 250 ML IV SCH (12:10)
[2018-01-24] MEDS: Sodium Chloride 0.9% 10 ML Syringe FLUSH PRN (12:10)
[2018-01-24] MEDS: Tamsulosin 0.4 MG Cap.ER PO SCH (17:45)
[2018-01-24] MEDS: atorvaSTATin 20 MG Tab PO SCH (21:25)
[2018-01-24] MEDS: Zolpidem 5 MG Tab PO PRN (21:26)
[2018-01-24] MEDS: Acetaminophen 325 MG Tab PO PRN (21:36)
[2018-01-24] MEDS ORDERED: guaiFENesin 100 MG/5 ML Soln 5 ML UD Cup PO PRN (22:02)
[2018-01-24] MEDS: Albuterol 6.7 GM Inhaler INH PRN (22:08)
[2018-01-24] MEDS ORDERED: guaiFENesin 100 MG/5 ML Soln 5 ML UD Cup PO ONE (22:20)
[2018-01-25] MEDS: cefTRIAXone 1 GM Vial IVPUSH SCH (00:28)
[2018-01-25] MEDS: Pantoprazole 40 MG Tab.CR PO SCH ×2 (06:16→17:43)
[2018-01-25] MEDS: Budesonide 0.5 MG/2 ML Neb Susp NEB SCH ×2 (07:27→17:43)
[2018-01-25] MEDS: Albuterol/Ipratropium 3.0-0.5 MG/3 ML Neb Soln NEB SCH ×3 (07:28→21:04)
[2018-01-25] MEDS: Aspirin 81 MG Tab.EC PO SCH (09:23)
[2018-01-25] MEDS: Potassium Chloride 10 MEQ Tab.ER PO SCH (09:23)
[2018-01-25] MEDS: Clopidogrel 75 MG Tab PO SCH (09:23)
[2018-01-25] MEDS: oxyCODONE 5 MG Tab PO PRN (09:23)
[2018-01-25] MEDS: Finasteride 5 MG Tab PO SCH (09:24)
[2018-01-25] MEDS: Metoprolol Tartrate 25 MG Tab PO SCH ×2 (09:24→21:01)
[2018-01-25] MEDS: Furosemide 20 MG Tab PO SCH (09:24)
[2018-01-25] MEDS: Oseltamivir 30 MG Cap PO SCH (09:24)
[2018-01-25] MEDS: guaiFENesin 100 MG/5 ML Soln 5 ML UD Cup PO PRN ×2 (09:24→21:31)
[2018-01-25] MEDS: Enoxaparin 40 MG/0.4 ML Syringe SUBCUT SCH (09:25)
[2018-01-25] MEDS: Azithromycin 500 MG in Sodium Chloride 0.9% 250 ML IV SCH (13:19)
[2018-01-25] MEDS: Tamsulosin 0.4 MG Cap.ER PO SCH (17:43)
[2018-01-25] MEDS: atorvaSTATin 20 MG Tab PO SCH (21:00)
[2018-01-25] MEDS: Zolpidem 5 MG Tab PO PRN (21:04)
[2018-01-25] MEDS: Sodium Chloride 0.9% 10 ML Syringe FLUSH PRN (21:12)
[2018-01-26] MEDS: Sodium Chloride 0.9% 10 ML Syringe FLUSH PRN ×3 (00:04→11:35)
[2018-01-26] MEDS: cefTRIAXone 1 GM Vial IVPUSH SCH ×2 (00:06→23:40)
[2018-01-26] MEDS: Pantoprazole 40 MG Tab.CR PO SCH ×2 (06:01→17:08)
[2018-01-26] MEDS: Budesonide 0.5 MG/2 ML Neb Susp NEB SCH ×2 (07:16→18:36)
[2018-01-26] MEDS: Albuterol/Ipratropium 3.0-0.5 MG/3 ML Neb Soln NEB SCH ×3 (07:16→21:10)
[2018-01-26] MEDS: Metoprolol Tartrate 25 MG Tab PO SCH ×2 (08:56→21:09)
[2018-01-26] MEDS: Finasteride 5 MG Tab PO SCH (08:58)
[2018-01-26] MEDS: Potassium Chloride 10 MEQ Tab.ER PO SCH (08:58)
[2018-01-26] MEDS: Aspirin 81 MG Tab.EC PO SCH (08:59)
[2018-01-26] MEDS: Clopidogrel 75 MG Tab PO SCH (08:59)
[2018-01-26] MEDS: Furosemide 20 MG Tab PO SCH (08:59)
[2018-01-26] MEDS: Enoxaparin 40 MG/0.4 ML Syringe SUBCUT SCH (09:00)
[2018-01-26] MEDS: Azithromycin 500 MG in Sodium Chloride 0.9% 250 ML IV SCH (11:35)
[2018-01-26] MEDS: Tamsulosin 0.4 MG Cap.ER PO SCH (18:36)
[2018-01-26] MEDS: atorvaSTATin 20 MG Tab PO SCH (21:10)
[2018-01-26] MEDS: Zolpidem 5 MG Tab PO PRN (21:23)
[2018-01-27] MEDS ORDERED: diphenhydrAMINE 25 MG Tab PO ONE (01:04)
[2018-01-27] MEDS: Acetaminophen 325 MG Tab PO PRN ×2 (01:12→22:11)
[2018-01-27] MEDS: Pantoprazole 40 MG Tab.CR PO SCH ×2 (05:05→17:02)
[2018-01-27] MEDS: Budesonide 0.5 MG/2 ML Neb Susp NEB SCH ×3 (05:06→18:20)
[2018-01-27] MEDS: Albuterol/Ipratropium 3.0-0.5 MG/3 ML Neb Soln NEB SCH ×4 (05:13→21:22)
[2018-01-27] MEDS ORDERED: Metoprolol Tartrate 25 MG Tab PO SCH (11:18)
[2018-01-27] MEDS: Enoxaparin 40 MG/0.4 ML Syringe SUBCUT SCH (11:45)
[2018-01-27] MEDS: Sodium Chloride 0.9% 10 ML Syringe FLUSH PRN (11:46)
[2018-01-27] MEDS: Aspirin 81 MG Tab.EC PO SCH (11:53)
[2018-01-27] MEDS: Potassium Chloride 10 MEQ Tab.ER PO SCH (11:53)
[2018-01-27] MEDS: Furosemide 20 MG Tab PO SCH (11:54)
[2018-01-27] MEDS: Finasteride 5 MG Tab PO SCH (11:55)
[2018-01-27] MEDS: Clopidogrel 75 MG Tab PO SCH (11:55)
[2018-01-27] MEDS: Azithromycin 500 MG in Sodium Chloride 0.9% 250 ML IV SCH (11:59)
[2018-01-27] MEDS: Metoprolol Tartrate 25 MG Tab PO SCH (12:10)
[2018-01-27] MEDS: Tamsulosin 0.4 MG Cap.ER PO SCH (19:11)
[2018-01-27] MEDS ORDERED: cefTRIAXone 1 GM Vial IVPUSH SCH (21:00)
[2018-01-27] MEDS: atorvaSTATin 20 MG Tab PO SCH (21:21)
[2018-01-27] MEDS: Amoxicillin/Clavulanate K 875-125 MG Tab PO SCH (21:22)
[2018-01-27] MEDS: Zolpidem 5 MG Tab PO PRN (22:11)
[2018-01-27] MEDS: guaiFENesin 100 MG/5 ML Soln 5 ML UD Cup PO PRN (22:36)
[2018-01-28] MEDS: Acetaminophen 325 MG Tab PO PRN ×3 (02:11→20:56)
[2018-01-28] MEDS: Pantoprazole 40 MG Tab.CR PO SCH ×2 (05:23→17:36)
[2018-01-28] MEDS: Budesonide 0.5 MG/2 ML Neb Susp NEB SCH (07:41)
[2018-01-28] MEDS: Albuterol/Ipratropium 3.0-0.5 MG/3 ML Neb Soln NEB SCH (07:41)
[2018-01-28] MEDS: Aspirin 81 MG Tab.EC PO SCH (08:21)
[2018-01-28] MEDS: Finasteride 5 MG Tab PO SCH (08:22)
[2018-01-28] MEDS: Metoprolol Tartrate 25 MG Tab PO SCH ×2 (08:22→20:40)
[2018-01-28] MEDS: Clopidogrel 75 MG Tab PO SCH (08:22)
[2018-01-28] MEDS: Amoxicillin/Clavulanate K 875-125 MG Tab PO SCH ×2 (08:22→20:40)
[2018-01-28] MEDS: Potassium Chloride 10 MEQ Tab.ER PO SCH (08:22)
[2018-01-28] MEDS: Furosemide 20 MG Tab PO SCH (08:22)
[2018-01-28] MEDS: Enoxaparin 40 MG/0.4 ML Syringe SUBCUT SCH (08:23)
[2018-01-28] MEDS: Tamsulosin 0.4 MG Cap.ER PO SCH (17:36)
[2018-01-28] MEDS: atorvaSTATin 20 MG Tab PO SCH (20:40)
[2018-01-28] MEDS: guaiFENesin 100 MG/5 ML Soln 5 ML UD Cup PO PRN (20:55)
[2018-01-28] MEDS: Zolpidem 5 MG Tab PO PRN (20:56)
[2018-01-28] MEDS: Albuterol 6.7 GM Inhaler INH PRN (20:57)
[2018-01-29] MEDS: Albuterol/Ipratropium 3.0-0.5 MG/3 ML Neb Soln NEB PRN ×2 (01:27→08:41)
[2018-01-29] MEDS: guaiFENesin 100 MG/5 ML Soln 5 ML UD Cup PO PRN ×2 (01:35→20:50)
[2018-01-29] MEDS: Acetaminophen 325 MG Tab PO PRN ×3 (02:05→20:48)
[2018-01-29] MEDS: Pantoprazole 40 MG Tab.CR PO SCH ×2 (05:07→17:50)
[2018-01-29] MEDS: Finasteride 5 MG Tab PO SCH (09:01)
[2018-01-29] MEDS: Potassium Chloride 10 MEQ Tab.ER PO SCH (09:02)
[2018-01-29] MEDS: Amoxicillin/Clavulanate K 875-125 MG Tab PO SCH ×2 (09:02→20:48)
[2018-01-29] MEDS: Furosemide 20 MG Tab PO SCH (09:02)
[2018-01-29] MEDS: Clopidogrel 75 MG Tab PO SCH (09:02)
[2018-01-29] MEDS: Aspirin 81 MG Tab.EC PO SCH (09:02)
[2018-01-29] MEDS: Metoprolol Tartrate 25 MG Tab PO SCH ×2 (09:02→20:49)
[2018-01-29] MEDS: Enoxaparin 40 MG/0.4 ML Syringe SUBCUT SCH (09:03)
[2018-01-29] MEDS: Tamsulosin 0.4 MG Cap.ER PO SCH (17:50)
[2018-01-29] MEDS: Zolpidem 5 MG Tab PO PRN (20:48)
[2018-01-29] MEDS: atorvaSTATin 20 MG Tab PO SCH (20:48)
[2018-01-29] MEDS: Albuterol 6.7 GM Inhaler INH PRN (20:50)
[2018-01-30] MEDS: Albuterol/Ipratropium 3.0-0.5 MG/3 ML Neb Soln NEB PRN (01:12)
[2018-01-30] MEDS: Pantoprazole 40 MG Tab.CR PO SCH (05:33)
[2018-01-30] MEDS: Potassium Chloride 10 MEQ Tab.ER PO SCH (08:42)
[2018-01-30] MEDS: Amoxicillin/Clavulanate K 875-125 MG Tab PO SCH (08:42)
[2018-01-30] MEDS: Finasteride 5 MG Tab PO SCH (08:42)
[2018-01-30] MEDS: Metoprolol Tartrate 25 MG Tab PO SCH (08:43)
[2018-01-30] MEDS: Furosemide 20 MG Tab PO SCH (08:43)
[2018-01-30] MEDS: Enoxaparin 40 MG/0.4 ML Syringe SUBCUT SCH (08:43)
[2018-01-30] MEDS: Clopidogrel 75 MG Tab PO SCH (08:43)
[2018-01-30] MEDS: Aspirin 81 MG Tab.EC PO SCH (08:43)
== END 2018-01-30 15:47 | disposition home health service (06) | DRG 948 ==
LOC: DL.MS 12:40
PROVIDERS: ADMIT Internal Medicine; ATTEND Internal Medicine
DX: R53.1 Weakness (principal); J44.0 Chronic obstructive pulmonary disease with (acute) lower respiratory infection; J44.1 Chronic obstructive pulmonary disease with (acute) exacerbation; J10.1 Influenza due to other identified influenza virus with other respiratory manifestations; J20.9 Acute bronchitis, unspecified; I25.10 Atherosclerotic heart disease of native coronary artery without angina pectoris; N40.0 Benign prostatic hyperplasia without lower urinary tract symptoms; R33.9 Retention of urine, unspecified; I11.0 Hypertensive heart disease with heart failure; I50.9 Heart failure, unspecified; F17.200 Nicotine dependence, unspecified, uncomplicated; I25.2 Old myocardial infarction; Z95.5 Presence of coronary angioplasty implant and graft; Z79.899 Other long term (current) drug therapy; Z79.82 Long term (current) use of aspirin; Z79.51 Long term (current) use of inhaled steroids
CPT/HCPCS: 94060; 94640; 97110-GO; 97110-GP; 97116-GP; 97162-GP; 97165-GO; 97530-GO; 97535-GO; A9270-GY; J0456; J0696; J1650; J7050

== ENCOUNTER 2021-06-28 13:02 | Inpatient (IN) | payer MEDICARE, BC ==
--- NOTE | 2021-06-28 13:34 | CT ---
PROCEDURE INFORMATION: Exam: CT Head Without Contrast Exam date and time: 06/28/2021 1:21 PM Age: 86 years old Clinical indication: Injury or trauma; Fall; Injury date: Today; Additional info: Trauma; Fall onto head from ground level TECHNIQUE: Imaging protocol: Computed tomography of the head without contrast. Radiation optimization: All CT scans at this facility use at least one of these dose optimization techniques: automated exposure control; mA and/or kV adjustment per patient size (includes targeted exams where dose is matched to clinical indication); or iterative reconstruction. COMPARISON: No relevant prior studies available. FINDINGS: Brain: Prominent sulci. Patchy hypodensity of the cerebral white matter which are nonspecific but likely secondary to microangiopathic changes. Cerebral ventricles: The ventricles are prominent secondary to diffuse volume loss/atrophy. Paranasal sinuses: Visualized sinuses are unremarkable. No fluid levels. Mastoid air cells: Visualized mastoid air cells are well aerated. Bones/joints: Unremarkable. No acute fracture. Soft tissues: Unremarkable. IMPRESSION: Chronic age related changes but no evidence of acute intracranial pathology.
--- NOTE | 2021-06-28 13:37 | EDM.PDOC ---
ED [facility] GENERAL MEDICAL PROBLEM - General Chief Complaint: General Stated Complaint: AMBULANCE Time Seen by Provider: 06/28/21 13:08 Source of Information: Reports: Patient, EMS, Family (Son and Daughter), RN, RN Notes Reviewed History Limitations: Reports: No Limitations - History of Present Illness INITIAL COMMENTS - FREE TEXT/NARRATIVE: Isa is an 86 y/o male with a history of COPD and SD with chronic anticoagulation on clopidogrel following stent placement, who presents to the ED via [facility] following a fall at home. The patient reports he fell last evening and struck his head; he denies loss of consciousness during the event. He denies pain to his neck, chest, abdomen, left upper extremity, or bilateral lower extremities. He states he has been falling frequently in his home over the past week as his legs "..just give out." Additionally, he attests to rigors, cough, decreased appetite, and baseline shortness of breath. He denies fever, sore throat, sinus congestion, chest pain, palpitations, worsening shortness of breath, nausea, vomiting, abdominal pain, diarrhea, constipation, or dysuria. He denies changes to his medications or diet. He attests to a tobacco smoking history with a quit date 20+ years ago; he denies alcohol or recreational drug use. Trauma Notes: As above in HPI Arrival Time: 1308 C-Collar Status: Place by EMS en route; remains in place upon arrival to this facility Spinal Board/Immobilization Status: Not placed by EMS GCS on Arrival: 15 Primary Trauma Survey Airway: Patent nasal and oral airways. Conversant with normal speech. No evidence of airway obstruction. Breathing: Spontaneous respirations, symmetric chest rise and fall, non-labored breathing. Coarse rhonchi throughout, expiratory wheeze to bilateral upper lobes Circulation: No central, peripheral, or perioral cyanosis. Heart rate and rhythm regular. No murmur or gallop. Intact distal pulses and capillary refill x4 distal extremities. Deformity/Disability: Head normal cephalic. Small hematoma to right temporoparietal region with superficial abrasions, no active bleeding. C-Collar in place. Chest non-tender. Abdomen soft, non-tender, benign to exam. Pelvis stable. Pain to right wrist. Left upper and bilateral lower extremities non- tender, atraumatic. No long bone deformities. No acute motor or sensory deficits. CN II-XII intact. GCS 15 on arrival. Exposure: Skin warm and dry. Scattered bruising to bilateral upper extremities. - Related Data Allergies Allergy/AdvReac Type Severity Reaction Status Date / Time No Known Allergies Allergy Verified 06/28/21 19:56 Home Meds: Home Meds Finasteride 5 mg PO DAILY 07/04/15 [History] Tamsulosin HCl 0.4 mg PO PCDINNER 07/04/15 [History] Aspirin [Adult Low Dose Aspirin EC] 81 mg PO DAILY 02/20/16 [History] Clopidogrel [Plavix] 1 tab PO DAILY 02/20/16 [History] Nitroglycerin [Nitrostat] 1 tab SL ASDIRECTED 02/20/16 [History] atorvaSTATin [Lipitor] 40 mg PO BEDTIME 02/20/16 [History] Furosemide [Lasix] 20 mg PO DAILY 02/29/16 [History] Albuterol [Ventolin HFA] 2 puff INH Q6HR PRN 09/26/17 [History] Budesonide/Formoterol [Symbicort 80-4.5 MCG] 2 puff INH BID 09/26/17 [History] Acetaminophen [Tylenol Extra Strength] 1,000 mg PO BID PRN 01/18/18 [History] Metoprolol Tartrate 12.5 mg PO QAM 01/30/18 [History] Metoprolol Tartrate 12.5 mg PO QPM 01/30/18 [History] traZODone HCl [Trazodone HCl] 50 mg PO BEDTIME PRN 01/30/18 [History] Past Medical History Other HEENT History: 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 Other Cardiovascular History: SD with stents placed Nov 2015 Gastrointestinal History: Reports: Cholelithiasis Genitourinary History: Reports: Prostate Disorder Musculoskeletal History: Reports: Arthritis, Fracture Other Musculoskeletal History: right hip fx Neurological History: Reports: None Other Neuro History: 2013 bumped head Psychiatric History: Reports: None Endocrine/Metabolic History: Reports: None Hematologic History: Reports: None Immunologic History: Reports: None Oncologic (Cancer) History: Reports: None Other Dermatologic History: eczema - Infectious Disease History Infectious Disease History: Reports: None - Past Surgical History HEENT Surgical History: Reports: Detached Retina Respiratory Surgical History: Reports: None GI Surgical History: Reports: Appendectomy, Cholecystectomy Male Surgical History: Reports: None Endocrine Surgical History: Reports: None Neurological Surgical History: Reports: None Musculoskeletal Surgical History: Reports: Shoulder Surgery Social & Family History - Caffeine Use Caffeine Use: Reports: Coffee, Soda - Living Situation & Occupation Living situation: Reports: with Family Occupation: Retired ED ROS GENERAL - Review of Systems Review Of Systems: Comprehensive ROS is negative, except as noted in HPI. ED EXAM, GENERAL - Physical Exam Exam: See Below Free Text/Narrative:: Secondary Trauma Survey as follows (1330) Exam Limited By: No Limitations General Appearance: Alert, No Apparent Distress Eye Exam: Bilateral Eye: EOMI, Normal Inspection, PERRL (3mm) Ears: Normal External Exam, Normal Canal, Normal TMs, Hearing Loss Ear Exam: Bilateral Ear: Auricle Normal, Canal Normal, TM normal Nose: Normal Inspection, Normal Mucosa, No Blood Throat/Mouth: Normal Inspection, Normal Oropharynx, Normal Voice, No Airway Compromise Head: Normocephalic, Other (Small hematoma to right temporoparietal region with superficial abrasions noted, no active bleeding) Neck: Other (C-collar in place. C-spine cleared at [address] scan. C-Collar removed by typewriter ribbon winder at 1420. ) Respiratory/Chest: No Respiratory Distress, No Accessory Muscle Use, Rhonchi, Wheezing (Expiratory wheezes to bilateral upper lobes). No: Crackles, Rales, Stridor, Retractions, Splinting Cardiovascular: Normal Peripheral Pulses, Regular Rate, Rhythm, No Edema, No Gallop, No JVD, No Murmur, No Rub Peripheral Pulses: 2+: Radial (L), Radial (R), Dorsalis Pedis (L), Dorsalis Pedis (R) GI/Abdominal: Normal Bowel Sounds, Soft, Non-Tender, No Distention, No Abnormal Bruit, No Mass, Pelvis Stable (Male) Exam: Deferred Rectal (Males) Exam: Deferred Back Exam: Normal Inspection, Decreased Range of Motion. No: Muscle Spasm, Paraspinal Tenderness, Vertebral Tenderness Extremities: Non-Tender, No Pedal Edema, Normal Capillary Refill, Arm Pain (To right posterior wrist), Limited Range of Motion (To right shoulder and right wrist). No: Joint Swelling, Increased Warmth, Mottled, Pallor, Redness Neurological: Alert, Oriented, CN II-XII Intact, Normal Cognition, No Motor/Sensory Deficits Psychiatric: Normal Affect, Normal Mood Skin Exam: Warm, Dry, Intact, No Rash, Ecchymosis (Scattered to bilateral upper extremities). No: Erythema, Increased Warmth, Jaundice, Mottled, Pallor, Petechiae Lymphatic: No Adenopathy #1 Interpretation EKG Date: 06/28/21 Time: 13:30 Rhythm: NSR (1st Degree AVB) Rate (Beats/Min): 78 [place]: Normal P-Wave: Present QRS: Normal ST-T: Normal QT: Normal [place]/PQ Interval: 0.234 Comparison: No Change EKG Interpretation Comments: NSR with 1st Degree AVB; LAD; No evidence of acute myocardial ischemia Course - Vital Signs Last Recorded V/S: Last Vital Signs Temp 97.5 F 06/30/21 04:00 Pulse 78 06/30/21 04:00 Resp 18 06/30/21 04:00 BP 144/80 H 06/30/21 04:00 Pulse Ox 100 06/30/21 04:00 - Orders/Labs/Meds Orders: Medication Orders Acetaminophen (Acetaminophen 325 Mg Tab) 650 mg PO Q4H PRN PRN Reason: Pain (Mild 1-3)/fever Last Admin: 06/30/21 00:21 Dose: 650 mg Documented by: TERRI Albuterol (Albuterol 6.7 Gm Inhaler) 0 gm INH Q6HR PRN PRN Reason: Dyspnea Last Admin: 06/30/21 00:19 Dose: 2 puff Documented by: Admin: 06/29/21 17:55 Dose: 2 puff Documented by: LUIS Ascorbic Acid (Ascorbic Acid 500 Mg Tab) 500 mg PO DAILY [facility] Last Admin: 06/29/21 09:24 Dose: 500 mg Documented by: MARLEY Aspirin (Aspirin 81 Mg Tab.Ec) 81 mg PO DAILY [facility] Last Admin: 06/29/21 09:23 Dose: 81 mg Documented by: MARLEY Atorvastatin Calcium (Atorvastatin 20 Mg Tab) 40 mg PO BEDTIME [facility] Last Admin: 06/29/21 20:47 Dose: 40 mg Documented by: TERRI Cholecalciferol (Cholecalciferol (Vitamin D3) 25 Mcg Tab) 25 mcg PO DAILY [facility] Last Admin: 06/29/21 09:24 Dose: 25 mcg Documented by: Admin: 06/28/21 20:05 Dose: 25 mcg Documented by: TRISH Clopidogrel Bisulfate (Clopidogrel 75 Mg Tab) 75 mg PO DAILY [facility] Last Admin: 06/29/21 09:24 Dose: 75 mg Documented by: MARLEY Cyanocobalamin (Cyanocobalamin (Vitamin B12) 1,000 Mcg Tab) 1,000 mcg PO DAILY [facility] Last Admin: 06/29/21 09:26 Dose: 1,000 mcg Documented by: MARLEY Doxycycline Monohydrate (Doxycycline Monohydrate 100 Mg Cap) 100 mg PO BID [facility] Last Admin: 06/29/21 20:47 Dose: 100 mg Documented by: Admin: 06/29/21 09:23 Dose: 100 mg Documented by: Admin: 06/28/21 20:05 Dose: 100 mg Documented by: TRISH Ferrous Sulfate (Ferrous Sulfate 325 Mg Tab) 325 mg PO BIDMEALS [facility] Last Admin: 06/29/21 17:21 Dose: 325 mg Documented by: Admin: 06/29/21 09:23 Dose: 325 mg Documented by: MARLEY Finasteride (Finasteride 5 Mg Tab) 5 mg PO DAILY [facility] Last Admin: 06/29/21 09:25 Dose: 5 mg Documented by: MARLEY Folic Acid (Folic Acid 1 Mg Tab) 1 mg PO DAILY [facility] Last Admin: 06/29/21 09:23 Dose: 1 mg Documented by: MARLEY Metoprolol Tartrate (Metoprolol Tartrate 25 Mg Tab) 12.5 mg PO QAM [facility] Last Admin: 06/29/21 09:26 Dose: Not Given Documented by: MARLEY Metoprolol Tartrate (Metoprolol Tartrate 25 Mg Tab) 12.5 mg PO BEDTIME [facility] Last Admin: 06/30/21 00:22 Dose: 12.5 mg Documented by: Admin: 06/28/21 21:39 Dose: 12.5 mg Documented by: TRISH Miscellaneous Information (Check Nicotine Patch) 1 ea TRDERM BEDTIME [facility] Mometasone Furoate/Formoterol Fumar (Formoterol/Mometasone 100-5 Mcg 8.8 Gm Inhaler) 2 puff IH BID [facility] Last Admin: 06/29/21 20:11 Dose: 2 puff Documented by: Admin: 06/29/21 09:26 Dose: 2 puff Documented by: Admin: 06/28/21 21:37 Dose: 2 puff Documented by: TRIHS Multivitamins/Minerals (Multivitamins, Therapeutic With Minerals Tab) 1 tab PO WITHBREAKFAST [facility] Last Admin: 06/29/21 09:23 Dose: 1 tab Documented by: MARLEY Nicotine (Nicotine 14 Mg/24 Hr Patch) 14 mg TRDERM DAILY [facility] Last Admin: 06/29/21 17:22 Dose: 14 mg Documented by: MARLEY Ondansetron HCl (Ondansetron 4 Mg/2 Ml Sdv) 4 mg IVPUSH Q4H PRN PRN Reason: Nausea/Vomiting Sodium Chloride (Sodium Chloride 0.9% 10 Ml Syringe) 10 ml FLUSH ASDIRECTED PRN PRN Reason: Keep Vein Open Tamsulosin HCl (Tamsulosin 0.4 Mg Cap.Er) 0.4 mg PO PCDINNER [facility] Last Admin: 06/29/21 17:36 Dose: Not Given Documented by: Admin: 06/29/21 17:21 Dose: 0.4 mg Documented by: MARLEY Trazodone HCl (Trazodone 50 Mg Tab) 50 mg PO BEDTIME PRN PRN Reason: Sleep Last Admin: 06/29/21 21:57 Dose: 50 mg Documented by: Admin: 06/28/21 22:15 Dose: 50 mg Documented by: TRISH Labs: Laboratory Tests 06/28/21 06/28/21 06/28/21 Range/Units 13:35 13:35 13:35 WBC 9.2 (5.0-10.0) 10^3/uL RBC 3.76 L (4.6-6.2) 10^6/uL Hgb 12.5 L D (14.0-18.0) g/dL Hct 37.6 L (40.0-54.0) % MCV 100.0 (80-100) fL MCH 33.2 (27.0-34.0) pg MCHC 33.2 (33.0-35.0) g/dL Plt Count 234 (150-450) 10^3/uL Neut % (Auto) 76.6 H (42.2-75.2) % Lymph % (Auto) 11.5 L (20.5-50.1) % [place] % (Auto) 11.4 H (2-8) % Eos % (Auto) 0.3 L (1.0-3.0) % Baso % (Auto) 0.2 (0.0-1.0) % PT 9.9 (9.0-12.0) SEC INR 1.0 (0.9-1.2) APTT 24.7 (22.0-34.0) SEC Sodium 146 H (136-145) mmol/L Potassium 3.0 L (3.5-5.1) mmol/L Chloride 104 (98-107) mmol/L Carbon Dioxide 32 (21-32) mmol/L Anion Gap 13.0 (7-13) mEq/L BUN 13 (7-18) mg/dL Creatinine 1.10 (0.70-1.30) mg/dL Est Cr Clr Drug Dosing TNP Estimated GFR (MDRD) > 60 BUN/Creatinine Ratio 11.8 (No establ ref range) Glucose 104 H (70-99) mg/dL Lactic Acid (0.4-2.0) mmol/L Calcium 8.8 (8.5-10.1) mg/dL Magnesium (1.8-2.4) mg/dL Iron (65-175) ug/dL TIBC (250-450) ug/dL % Saturation (20.0-50.0) % Ferritin (26-388) mg/mL Total Bilirubin 1.1 H (0.2-1.0) mg/dL AST 21 (15-37) U/L ALT 20 (16-63) U/L Alkaline Phosphatase 112 (46-116) U/L Creatine Kinase 100 (39-308) U/L Troponin I High Sens 38 (<=76) pg/mL C-Reactive Protein 7.7 H (0.0-0.9) mg/dL Total Protein 6.5 (6.4-8.2) g/dL Albumin 3.2 L (3.4-5.0) g/dL Globulin 3.3 Albumin/Globulin Ratio 0.97 Vitamin B12 (193-986) pg/mL Folate (8.6-58.9) ng/mL Free T4 (0.76-1.46) ng/dL TSH, Ultra Sensitive (0.36-3.74) uIU/mL Urine Color (YELLOW) Urine Appearance (CLEAR) Urine pH (5.0-9.0) Ur Specific [place] (1.005-1.030) Urine Protein (NEGATIVE) Urine Glucose (UA) (NEGATIVE) Urine Ketones (NEGATIVE) Urine Occult Blood (NEGATIVE) Urine Nitrite (NEGATIVE) Urine Bilirubin (NEGATIVE) Urine Urobilinogen (0.2-1.0) mg/dL Ur Leukocyte Esterase (NEGATIVE) Urine RBC (0-5) /HPF Urine WBC (0-5/HPF) /HPF Ur Epithelial Cells (NOT SEEN) /HPF Urinalysis Comment Urine Opiates Screen (NEGATIVE) Ur Oxycodone Screen (NEGATIVE) Urine Methadone Screen (NEGATIVE) Ur Barbiturates Screen (NEGATIVE) U Tricyclic Antidepress (NEGATIVE) Ur Phencyclidine Scrn (NEGATIVE) Ur Amphetamine Screen (NEGATIVE) U Methamphetamines Scrn (NEGATIVE) Urine MDMA Screen (NEGATIVE) U Benzodiazepines Scrn (NEGATIVE) Urine Cocaine Screen (NEGATIVE) U Marijuana (THC) Screen (NEGATIVE) Ethyl Alcohol < 3 (0) mg/dL 06/28/21 06/28/21 06/28/21 Range/Units 13:35 13:35 13:35 WBC (5.0-10.0) 10^3/uL RBC (4.6-6.2) 10^6/uL Hgb (14.0-18.0) g/dL Hct (40.0-54.0) % MCV (80-100) fL MCH (27.0-34.0) pg MCHC (33.0-35.0) g/dL Plt Count (150-450) 10^3/uL Neut % (Auto) (42.2-75.2) % Lymph % (Auto) (20.5-50.1) % [place] % (Auto) (2-8) % Eos % (Auto) (1.0-3.0) % Baso % (Auto) (0.0-1.0) % PT (9.0-12.0) SEC INR (0.9-1.2) APTT (22.0-34.0) SEC Sodium (136-145) mmol/L Potassium (3.5-5.1) mmol/L Chloride (98-107) mmol/L Carbon Dioxide (21-32) mmol/L Anion Gap (7-13) mEq/L BUN (7-18) mg/dL Creatinine (0.70-1.30) mg/dL Est Cr Clr Drug Dosing Estimated GFR (MDRD) BUN/Creatinine Ratio (No establ ref range) Glucose (70-99) mg/dL Lactic Acid 1.3 (0.4-2.0) mmol/L Calcium (8.5-10.1) mg/dL Magnesium 1.9 (1.8-2.4) mg/dL Iron (65-175) ug/dL TIBC (250-450) ug/dL % Saturation (20.0-50.0) % Ferritin (26-388) mg/mL Total Bilirubin (0.2-1.0) mg/dL AST (15-37) U/L ALT (16-63) U/L Alkaline Phosphatase (46-116) U/L Creatine Kinase (39-308) U/L Troponin I High Sens (<=76) pg/mL C-Reactive Protein (0.0-0.9) mg/dL Total Protein (6.4-8.2) g/dL Albumin (3.4-5.0) g/dL Globulin Albumin/Globulin Ratio Vitamin B12 333 (193-986) pg/mL Folate 12.8 (8.6-58.9) ng/mL Free T4 1.17 (0.76-1.46) ng/dL TSH, Ultra Sensitive 0.83 (0.36-3.74) uIU/mL Urine Color (YELLOW) Urine Appearance (CLEAR) Urine pH (5.0-9.0) Ur Specific [place] (1.005-1.030) Urine Protein (NEGATIVE) Urine Glucose (UA) (NEGATIVE) Urine Ketones (NEGATIVE) Urine Occult Blood (NEGATIVE) Urine Nitrite (NEGATIVE) Urine Bilirubin (NEGATIVE) Urine Urobilinogen (0.2-1.0) mg/dL Ur Leukocyte Esterase (NEGATIVE) Urine RBC (0-5) /HPF Urine WBC (0-5/HPF) /HPF Ur Epithelial Cells (NOT SEEN) /HPF Urinalysis Comment Urine Opiates Screen (NEGATIVE) Ur Oxycodone Screen (NEGATIVE) Urine Methadone Screen (NEGATIVE) Ur Barbiturates Screen (NEGATIVE) U Tricyclic Antidepress (NEGATIVE) Ur Phencyclidine Scrn (NEGATIVE) Ur Amphetamine Screen (NEGATIVE) U Methamphetamines Scrn (NEGATIVE) Urine MDMA Screen (NEGATIVE) U Benzodiazepines Scrn (NEGATIVE) Urine Cocaine Screen (NEGATIVE) U Marijuana (THC) Screen (NEGATIVE) Ethyl Alcohol (0) mg/dL 06/28/21 06/28/21 06/28/21 Range/Units 13:35 15:45 15:45 WBC (5.0-10.0) 10^3/uL RBC (4.6-6.2) 10^6/uL Hgb (14.0-18.0) g/dL Hct (40.0-54.0) % MCV (80-100) fL MCH (27.0-34.0) pg MCHC (33.0-35.0) g/dL Plt Count (150-450) 10^3/uL Neut % (Auto) (42.2-75.2) % Lymph % (Auto) (20.5-50.1) % [place] % (Auto) (2-8) % Eos % (Auto) (1.0-3.0) % Baso % (Auto) (0.0-1.0) % PT (9.0-12.0) SEC INR (0.9-1.2) APTT (22.0-34.0) SEC Sodium (136-145) mmol/L Potassium (3.5-5.1) mmol/L Chloride (98-107) mmol/L Carbon Dioxide (21-32) mmol/L Anion Gap (7-13) mEq/L BUN (7-18) mg/dL Creatinine (0.70-1.30) mg/dL Est Cr Clr Drug Dosing Estimated GFR (MDRD) BUN/Creatinine Ratio (No establ ref range) Glucose (70-99) mg/dL Lactic Acid (0.4-2.0) mmol/L Calcium (8.5-10.1) mg/dL Magnesium (1.8-2.4) mg/dL Iron 29 L (65-175) ug/dL TIBC 270 (250-450) ug/dL % Saturation 10.7 L (20.0-50.0) % Ferritin 106 (26-388) mg/mL Total Bilirubin (0.2-1.0) mg/dL AST (15-37) U/L ALT (16-63) U/L Alkaline Phosphatase (46-116) U/L Creatine Kinase (39-308) U/L Troponin I High Sens (<=76) pg/mL C-Reactive Protein (0.0-0.9) mg/dL Total Protein (6.4-8.2) g/dL Albumin (3.4-5.0) g/dL Globulin Albumin/Globulin Ratio Vitamin B12 (193-986) pg/mL Folate (8.6-58.9) ng/mL Free T4 (0.76-1.46) ng/dL TSH, Ultra Sensitive (0.36-3.74) uIU/mL Urine Color Yellow (YELLOW) Urine Appearance Clear (CLEAR) Urine pH 6.5 (5.0-9.0) Ur Specific [place] 1.020 (1.005-1.030) Urine Protein 30 H (NEGATIVE) Urine Glucose (UA) Negative (NEGATIVE) Urine Ketones Negative (NEGATIVE) Urine Occult Blood Trace-lysed H (NEGATIVE) Urine Nitrite Negative (NEGATIVE) Urine Bilirubin Negative (NEGATIVE) Urine Urobilinogen 0.2 (0.2-1.0) mg/dL Ur Leukocyte Esterase Negative (NEGATIVE) Urine RBC 0-5 (0-5) /HPF Urine WBC 0-5 (0-5/HPF) /HPF Ur Epithelial Cells Few (NOT SEEN) /HPF Urinalysis Comment See note Urine Opiates Screen Negative (NEGATIVE) Ur Oxycodone Screen Negative (NEGATIVE) Urine Methadone Screen Negative (NEGATIVE) Ur Barbiturates Screen Negative (NEGATIVE) U Tricyclic Antidepress Negative (NEGATIVE) Ur Phencyclidine Scrn Negative (NEGATIVE) Ur Amphetamine Screen Negative (NEGATIVE) U Methamphetamines Scrn Negative (NEGATIVE) Urine MDMA Screen Negative (NEGATIVE) U Benzodiazepines Scrn Negative (NEGATIVE) Urine Cocaine Screen Negative (NEGATIVE) U Marijuana (THC) Screen Negative (NEGATIVE) Ethyl Alcohol (0) mg/dL Meds: Medications Generic Name Dose Route Start Last Admin Trade Name Freq PRN Reason Stop Dose Admin Acetaminophen 650 mg 06/28/21 19:26 06/30/21 00:21 Acetaminophen 325 Mg Tab PO 650 mg Q4H PRN Administration Pain (Mild 1-3)/fever Albuterol 0 gm 06/28/21 21:03 06/30/21 00:19 Albuterol 6.7 Gm Inhaler INH 2 puff Q6HR PRN Administration Dyspnea Ascorbic Acid 500 mg 06/29/21 09:00 06/29/21 09:24 Ascorbic Acid 500 Mg Tab PO 500 mg DAILY MARIE Administration Aspirin 81 mg 06/29/21 09:00 06/29/21 09:23 Aspirin 81 Mg Tab.Ec PO 81 mg DAILY MARIE Administration Atorvastatin Calcium 40 mg 06/29/21 21:00 06/29/21 20:47 Atorvastatin 20 Mg Tab PO 40 mg BEDTIME MARIE Administration Cholecalciferol 25 mcg 06/28/21 19:45 06/29/21 09:24 Cholecalciferol (Vitamin D3) 25 Mcg Tab PO 25 mcg DAILY MARIE Administration Clopidogrel Bisulfate 75 mg 06/29/21 09:00 06/29/21 09:24 Clopidogrel 75 Mg Tab PO 75 mg DAILY MARIE Administration Cyanocobalamin 1,000 mcg 06/29/21 09:00 06/29/21 09:26 Cyanocobalamin (Vitamin B12) 1,000 Mcg Tab PO 1,000 mcg DAILY MARIE Administration Doxycycline Monohydrate 100 mg 06/28/21 21:00 06/29/21 20:47 Doxycycline Monohydrate 100 Mg Cap PO 100 mg BID MARIE Administration Ferrous Sulfate 325 mg 06/29/21 08:00 06/29/21 17:21 Ferrous Sulfate 325 Mg Tab PO 325 mg BIDMEALS MARIE Administration Finasteride 5 mg 06/29/21 09:00 06/29/21 09:25 Finasteride 5 Mg Tab PO 5 mg DAILY MARIE Administration Folic Acid 1 mg 06/29/21 09:00 06/29/21 09:23 Folic Acid 1 Mg Tab PO 1 mg DAILY MARIE Administration Metoprolol Tartrate 12.5 mg 06/29/21 09:00 06/29/21 09:26 Metoprolol Tartrate 25 Mg Tab PO Not Given QAM [facility] Metoprolol Tartrate 12.5 mg 06/28/21 21:15 06/30/21 00:22 Metoprolol Tartrate 25 Mg Tab PO 12.5 mg BEDTIME MARIE Administration Miscellaneous Information 1 ea 06/29/21 21:00 Check Nicotine Patch TRDERM BEDTIME MARIE Mometasone Furoate/Formoterol Fumar 2 puff 06/28/21 21:00 06/29/21 20:11 Formoterol/Mometasone 100-5 Mcg 8.8 Gm Inhaler IH 2 puff BID MARIE Administration Multivitamins/Minerals 1 tab 06/29/21 08:00 06/29/21 09:23 Multivitamins, Therapeutic With Minerals Tab PO 1 tab WITHBREAKFAST MARIE Administration Nicotine 14 mg 06/29/21 16:30 06/29/21 17:22 Nicotine 14 Mg/24 Hr Patch TRDERM 14 mg DAILY MARIE Administration Ondansetron HCl 4 mg 06/28/21 19:26 Ondansetron 4 Mg/2 Ml Sdv IVPUSH Q4H PRN Nausea/Vomiting Sodium Chloride 10 ml 06/28/21 19:26 Sodium Chloride 0.9% 10 Ml Syringe FLUSH ASDIRECTED PRN Keep Vein Open Tamsulosin HCl 0.4 mg 06/29/21 18:30 06/29/21 17:36 Tamsulosin 0.4 Mg Cap.Er PO Not Given PCDINNER MARIE Trazodone HCl 50 mg 06/28/21 21:03 06/29/21 21:57 Trazodone 50 Mg Tab PO 50 mg BEDTIME PRN Administration Sleep Discontinued Medications Generic Name Dose Route Start Last Admin Trade Name Freq PRN Reason Stop Dose Admin Albuterol/Ipratropium 3 ml 06/28/21 15:39 06/28/21 15:50 Albuterol/Ipratropium 3.0-0.5 Mg/3 Ml Neb Soln NEB 06/28/21 15:40 3 ml ONETIME ONE Administration Potassium Chloride 20 meq/ 100 mls @ 50 mls/hr 06/28/21 14:34 06/28/21 14:48 Premix IV 06/28/21 16:33 50 mls/hr ONETIME ONE Administration Azithromycin 500 mg/ Sodium 250 mls @ 250 mls/hr 06/28/21 15:41 06/28/21 17:14 Chloride IV 06/28/21 16:40 250 mls/hr ONETIME ONE Administration Ceftriaxone Sodium 1 gm/ 50 mls @ 100 mls/hr 06/28/21 15:41 06/28/21 17:14 Sodium Chloride IV 06/28/21 16:10 Infused ONETIME ONE Infusion Sodium Chloride 1,000 mls @ 50 mls/hr 06/28/21 19:30 06/28/21 20:06 Sodium Chloride 0.45% IV 50 mls/hr ASDIRECTED MARIE Administration Lidocaine HCl 1 ml 06/28/21 14:35 06/28/21 14:48 Lidocaine 1% 30 Ml Sdv INJECT 06/28/21 14:36 1 ml ONETIME ONE Administration Methylprednisolone Sodium Succinate 125 mg 06/28/21 15:39 06/28/21 16:37 Methylprednisolone Sodium Succinate 125 Mg/2 Ml Sdv IVPUSH 06/28/21 15:40 125 mg ONETIME ONE Administration Potassium Chloride 40 meq 06/28/21 19:29 06/28/21 20:05 Potassium Chloride 10 Meq Tab.Er PO 06/28/21 19:30 40 meq ONETIME ONE Administration Tamsulosin HCl 0.4 mg 06/28/21 21:30 06/28/21 21:38 Tamsulosin 0.4 Mg Cap.Er PO 06/28/21 21:31 0.4 mg NOW ONE Administration - Radiology Interpretation Free Text/Narrative:: [facility] Final Radiology Report Call: [phone] assistance Online chat: [email or web address] Name: ISA BHAT Age: 86Years M Date: 06/28/2021 SSN: -- : [id number] Study: CT HEAD WO CONT Requesting Physician: Olga Lion Images: [id number] Addl Studies: Provided Clinical History: Trauma; Fall onto head from ground level Contrast: Without Contrast Medium: Contrast Amount: Contrast Method: Page 1 of 2 PROCEDURE INFORMATION: Exam: CT Head Without Contrast Exam date and time: 06/28/2021 1:21 PM Age: 86 years old Clinical indication: Injury or trauma; Fall; Injury date: Today; Additional info: Trauma; Fall onto head from ground level TECHNIQUE: Imaging protocol: Computed tomography of the head without contrast. Radiation optimization: All CT scans at this facility use at least one of these dose optimization techniques: automated exposure control; mA and/or kV adjustment per patient size (includes targeted exams where dose is matched to clinical indication); or iterative reconstruction. COMPARISON: No relevant prior studies available. FINDINGS: Brain: Prominent sulci. Patchy hypodensity of the cerebral white matter which are nonspecific but likely secondary to microangiopathic changes. Cerebral ventricles: The ventricles are prominent secondary to diffuse volume loss/atrophy. Paranasal sinuses: Visualized sinuses are unremarkable. No fluid levels. Mastoid air cells: Visualized mastoid air cells are well aerated. Bones/joints: Unremarkable. No acute fracture. Soft tissues: Unremarkable. IMPRESSION: Chronic age related changes but no evidence of acute intracranial pathology. Thank you for allowing us to participate in the care of your patient. Dictated and Authenticated by: Vibha Duvall MD 06/28/2021 1:34 PM Central Time ([place] & [place]) [facility] - [facility] Final Radiology Report Call: [phone] assistance Online chat: [email or web address] Name: ISA BHAT Age: 86Years M Date: 06/28/2021 SSN: -- : [id number] Study: CT CERVICAL SPINE WO CONT Requesting Physician: Olga Lion Images: 271 Addl Studies: Provided Clinical History: Trauma; Fall onto head from ground level Contrast: Without Contrast Medium: Contrast Amount: Contrast Method: Page 1 of 2 PROCEDURE INFORMATION: Exam: CT Cervical Spine Without Contrast Exam date and time: 06/28/2021 1:21 PM Age: 86 years old Clinical indication: Injury or trauma; Fall; Injury date: Today; Additional info: Trauma; Fall onto head from ground level TECHNIQUE: Imaging protocol: Computed tomography images of the cervical spine without contrast. Radiation optimization: All CT scans at this facility use at least one of these dose optimization techniques: automated exposure control; mA and/or kV adjustment per patient size (includes targeted exams where dose is matched to clinical indication); or iterative r econstruction. COMPARISON: No relevant prior studies available. FINDINGS: Bones/joints: Hypertrophic changes are present involving the dens and anterior arch of C1. Discs/Spinal canal/Neural foramina: Mild bilateral neuroforaminal narrowing C2- C3 and moderate C3-C7. Moderate disc space narrowing C3-C6 and mild C2-C3 and C6-C7 with small anterior and posterior osteophytes. Lungs: Lung apices are normal. Soft tissues: Unremarkable. IMPRESSION: No evidence of cervical spine fracture. Remainder of findings as described above. Thank you for allowing us to participate in the care of your patient. Dictated and Authenticated by: Vibha Duvall MD 06/28/2021 1:40 PM Central Time ([place] & [place]) [facility] Final Radiology Report Call: [phone] assistance Online chat: [email or web address] Name: ISA BHAT Age: 86Years M Date: 06/28/2021 SSN: -- : [id number] Study: CR CHEST 1V FRONTAL Requesting Physician: Olga Lion Images: 1 Addl Studies: Provided Clinical History: Shortness of breath; Hx of COPD Contrast: Contrast Medium: Contrast Amount: Contrast Method: CONFIDENTIALITY STATEMENT This report is intended only for use by the referring physician, and only in accordance with law. If you received this in error, call [phone]. Page 1 of 1 PROCEDURE INFORMATION: Exam: XR Chest Exam date and time: 06/28/2021 2:46 PM Age: 86 years old Clinical indication: Shortness of breath; Additional info: Shortness of breath; HX of copd TECHNIQUE: Imaging protocol: XR of the chest. Views: 1 view. COMPARISON: CT Cervical Spine wo Cont 06/28/2021 1:21 PM FINDINGS: Lungs: Patchy opacities in the right mid and lower lung and left lung base that could represent atypical infiltrates. Pleural spaces: Unremarkable. No pleural effusion. No pneumothorax. Heart/Mediastinum: Unremarkable. No cardiomegaly. Bones/joints: Moderate or degenerative changes of the shoulder joints. IMPRESSION: Patchy opacities in the right mid and lower lung and left lung base that could represent atypical infiltrates. Thank you for allowing us to participate in the care of your patient. Dictated and Authenticated by: Vibha Duvall MD 06/28/2021 3:03 PM Central Time ([place] & [place]) [facility] Final Radiology Report Call: [phone] assistance Online chat: [email or web address] Name: ISA BHAT Age: 86Years M Date: 06/28/2021 SSN: -- : [id number] Study: CR WRIST COMP MIN 3V RT Requesting Physician: Olga Lion Images: 3 Addl Studies: Provided Clinical History: Fall from ground level; pain with movement Contrast: Contrast Medium: Contrast Amount: Contrast Method: CONFIDENTIALITY STATEMENT This report is intended only for use by the referring physician, and only in accordance with law. If you received this in error, call [phone]. Page 1 of 1 PROCEDURE INFORMATION: Exam: XR Right Wrist Exam date and time: 06/28/2021 2:42 PM Age: 86 years old Clinical indication: Pain; Wrist; Right; Additional info: Fall from ground level; Pain with movement TECHNIQUE: Imaging protocol: XR Right wrist. Views: 3 or more views. COMPARISON: No relevant prior studies available. FINDINGS: Bones/joints: Normal. Soft tissues: Normal. Vasculature: Vascular calcifications are present. IMPRESSION: No definite evidence of acute trauma involving the right wrist. Thank you for allowing us to participate in the care of your patient. Dictated and Authenticated by: Vibha Duvall MD 06/28/2021 3:12 PM Central Time ([place] & [place]) - Re-Assessments/Exams Free Text/Narrative Re-Assessment/Exam: 06/28/21 CT head and c-spine obtained immediately upon arrival to ED given most recent fall was yesterday, patient states he was laying on the ground from approximately [id number]. No changes in mentation, vision, or motor/sensory function. GCS at 1 hour (1408): 15 CXR obtained following secondary assessment and patient's persistent work of breathing - RR mid to high 20s. X-ray of right wrist obtained due to pain. CT head and c-spine unremarkable for acute processes. Patient ruled out for trauma transfer. Does not require higher level of care. Case discussed with Dr. Adams given frequent falls and infiltrates in the right mid and bilateral lower lung bases. Dr. Adams requests initiating treatment for pneumonia, as well as medications for potential COPD exacerbation, an observation to see if patient improves. Findings of examination, lab work, and imaging reviewed with patient, son, and daughter. Plan of care discussed. Patient and his children verbalized understanding and agreement with the plan of care. Rocephin 1mg IVPB, Azithromycin 500mg , Solu-Medrol 125mg IVP, and a DuoNeb. Patient's wheezing has somewhat improved, work of breathing slightly improved with RR low 20s. Case again discussed with Dr. Adams who kindly accepted patient for admission for pneumonia and frequent falls. GCS at discharge (1828): 15 Departure - Departure Time of Disposition: 18:28 Disposition: Admitted As Inpatient 65 Condition: Fair Clinical Impression: Normocytic hypochromic anemia, Fall from ground level, Hypokalemia, Traumatic injury of head with hematoma of scalp, History of COPD Pneumonia Qualifiers: Pneumonia type: due to unspecified organism Laterality: right Lung location: lower lobe of lung Qualified Code(s): J18.9 - Pneumonia, unspecified organism - Discharge Information
--- NOTE | 2021-06-28 13:40 | CT ---
PROCEDURE INFORMATION: Exam: CT Cervical Spine Without Contrast Exam date and time: 06/28/2021 1:21 PM Age: 86 years old Clinical indication: Injury or trauma; Fall; Injury date: Today; Additional info: Trauma; Fall onto head from ground level TECHNIQUE: Imaging protocol: Computed tomography images of the cervical spine without contrast. Radiation optimization: All CT scans at this facility use at least one of these dose optimization techniques: automated exposure control; mA and/or kV adjustment per patient size (includes targeted exams where dose is matched to clinical indication); or iterative reconstruction. COMPARISON: No relevant prior studies available. FINDINGS: Bones/joints: Hypertrophic changes are present involving the dens and anterior arch of C1. Discs/Spinal canal/Neural foramina: Mild bilateral neuroforaminal narrowing C2-C3 and moderate C3-C7. Moderate disc space narrowing C3-C6 and mild C2-C3 and C6-C7 with small anterior and posterior osteophytes. Lungs: Lung apices are normal. Soft tissues: Unremarkable. IMPRESSION: No evidence of cervical spine fracture. Remainder of findings as described above.
[2021-06-28 13:59] LABS: PTT,PARTIAL THROMBOPLSTIN TIME 24.7 SEC (22.0-34.0)
[2021-06-28 14:03] LABS: CHLORIDE,CL 104 mmol/L (98-107); SODIUM,NA 146 mmol/L (136-145)
[2021-06-28] MEDS ORDERED: Potassium Chloride 20 MEQ in Premix Bag 1 BAG IV ONE (14:34)
[2021-06-28] MEDS ORDERED: Lidocaine 1% 30 ML SDV INJECT ONE (14:35)
--- NOTE | 2021-06-28 15:04 | CR ---
PROCEDURE INFORMATION: Exam: XR Chest Exam date and time: 06/28/2021 2:46 PM Age: 86 years old Clinical indication: Shortness of breath; Additional info: Shortness of breath; HX of copd TECHNIQUE: Imaging protocol: XR of the chest. Views: 1 view. COMPARISON: CT Cervical Spine wo Cont 06/28/2021 1:21 PM FINDINGS: Lungs: Patchy opacities in the right mid and lower lung and left lung base that could represent atypical infiltrates. Pleural spaces: Unremarkable. No pleural effusion. No pneumothorax. Heart/Mediastinum: Unremarkable. No cardiomegaly. Bones/joints: Moderate or degenerative changes of the shoulder joints. IMPRESSION: Patchy opacities in the right mid and lower lung and left lung base that could represent atypical infiltrates.
--- NOTE | 2021-06-28 15:13 | CR ---
PROCEDURE INFORMATION: Exam: XR Right Wrist Exam date and time: 06/28/2021 2:42 PM Age: 86 years old Clinical indication: Pain; Wrist; Right; Additional info: Fall from ground level; Pain with movement TECHNIQUE: Imaging protocol: XR Right wrist. Views: 3 or more views. COMPARISON: No relevant prior studies available. FINDINGS: Bones/joints: Normal. Soft tissues: Normal. Vasculature: Vascular calcifications are present. IMPRESSION: No definite evidence of acute trauma involving the right wrist.
[2021-06-28] MEDS ORDERED: Albuterol/Ipratropium 3.0-0.5 MG/3 ML Neb Soln NEB ONE (15:39)
[2021-06-28] MEDS ORDERED: methylPREDNISolone Sodium Succinate 125 MG/2 ML SDV IVPUSH ONE (15:39)
[2021-06-28] MEDS ORDERED: Azithromycin 500 MG in Sodium Chloride 0.9% 250 ML IV ONE (15:41)
[2021-06-28] MEDS ORDERED: cefTRIAXone 1 GM in Sodium Chloride 0.9% 50 ML IV ONE (15:41)
[2021-06-28 15:55] LABS: AMPHETAMINES,URINE NEGATIVE (NEGATIVE); BARBITURATES,URINE NEGATIVE (NEGATIVE); BENZODIAZEPINE,URINE NEGATIVE (NEGATIVE); MDMA (ECSTASY), URINE NEGATIVE (NEGATIVE); METHADONE,URINE NEGATIVE (NEGATIVE); METHAMPHETAMINES,URINE NEGATIVE (NEGATIVE); OPIATES,URINE NEGATIVE (NEGATIVE); OXYCODONE,URINE NEGATIVE (NEGATIVE); PHENCYCLIDINE,URINE NEGATIVE (NEGATIVE); TCA,URINE NEGATIVE (NEGATIVE)
[2021-06-28] MEDS ORDERED: Ondansetron 4 MG/2 ML SDV IVPUSH PRN (19:26)
[2021-06-28] MEDS ORDERED: Sodium Chloride 0.9% 10 ML Syringe FLUSH PRN (19:26)
[2021-06-28] MEDS ORDERED: Acetaminophen 325 MG Tab PO PRN (19:26)
[2021-06-28] MEDS ORDERED: Potassium Chloride 10 MEQ Tab.ER PO ONE (19:29)
[2021-06-28] MEDS ORDERED: Sodium Chloride 0.45% 1,000 ML IV SCH (19:30)
--- NOTE | 2021-06-28 19:37 | PCM.SN.2 ---
- Free Text/Narrative Note: START OF DOCTOR OMAYRA HISTORY AND PHYSICAL / CONSULTATION NOTE Chief Complaint: Recurrent falls History of Present Illness: The patient is a 6-year-old male presents to [facility] of recurrent falls. He carries had 3 falls in the last 2 weeks. He states that he has had progressive weakness of his bilateral extremities which have caused him to fall. He states that his last fall was in June 27, 2021 with subsequent fall onto his left side and head trauma. He is equivocal as to whether he exhibited a loss consciousness. The patient denies diplopia, blurry vision, dysphagia, dysphagia, paresthesia/anesthesia of any part of his body. Aside from his bilateral extremities he denies any myasthenia. The patient missed dyspnea however he denies chest pain, lightheadedness, dizziness, diaphoresis, palpitations, since his rapid heartbeat, sensation irregular heartbeat. He presents for further evaluation Surgical History: Previous documentation of bilateral cataract surgery of which the patient is uncertain, right rotator cuff surgery, surgery of the right eye for detached retina, cardiac stent placement, appendectomy, cholecystectomy Family History: Coronary artery disease Social History: Tobacco: Former smoker Alcohol: Rare Caffeine: Coffee, cola Drugs: Never Allergies: No known drug allergies Code Status: Full Pertinent Laboratory Results / Pertinent Radiology Results / Pertinent Diagnostic Results / Pertinent Vital Signs: Blood pressure 124/90, pulse 79, respirations 19, temperature 9 9.2 degrees, 94% room air, sodium 146, potassium is 3, total bilirubin is 1.1, hemoglobin is 12.5 Physical Examination: General: -Alert -No acute distress -No dyspnea -No tachypnea Head: -Atraumatic -Normocephalic Eyes: -Pupils equally round and reactive to light and accommodation -Extraocular muscles intact Neurological: -Cranial nerves II-XII intact Neck: -No jugular venous distention -No thyromegaly -No cervical lymphadenopathy Heart: -Regular rate -Regular rhythm -No murmurs -No gallops -No rubs Lungs: -No wheeze -No rhonchi -No rales Abdomen: -Normal bowel sounds in all four quadrants -No rebound -No guarding -No tenderness Extremities: -2/4 pulse in all four extremities -No clubbing -No cyanosis -No edema -No calf tenderness present bilaterally -Negative Homans sign bilaterally Musculoskeletal: -5 out of 5 left upper external strength. There is decreased range of motion of the right upper extremity secondary to pain -5/5 bilateral lower extremity strength -Sensorium of bilateral upper extremities are equal and intact -Sensorium of bilateral lower extremities are equal and intact Additional Details / Additional Findings / Exceptions / Miscellaneous: Assessment / Plan: Recurrent falls. Physical therapy consult. Occupational Therapy consult. Case management evaluation for possible placement. Check B12, folic acid, TSH, free T4. Vitamin D 1000 IU p.o. daily Hypokalemia. Will monitor potassium levels intermittently and supplement as necessary Hypernatremia. Will monitor sodium levels intermittently. IV half-normal saline at 50 mils per hour BPH Insomnia Pneumonia. Doxycycline 100 mg p.o. twice daily History of cholelithiasis Hyperbilirubinemia. Will monitor bilirubin levels intermittently Anemia. Will monitor hemoglobin levels intermittently. Check serum ferritin, iron panel, fecal occult blood COPD CHF Coronary artery disease, status post [place], status post [place] Hyperlipidemia Pretension Arthritis Eczema Degenerative joint disease Poor dentition. Outpatient follow-up with dentistry DVT prophylaxis. Bilateral CD Disposition: Medically the patient will likely be okay for discharge within 24 hours however he may require placement based on findings by physical therapy, Occupational Therapy, and case management/social work. At the time of admission, the patient's home medications were pending input to the EMR/DHR system. Once their input, they will be reviewed and reconciled END OF DOCTOR EMAMIS HISTORY AND PHYSICAL / CONSULTATION NOTE
--- NOTE | 2021-06-28 19:38 | PCM.SN.2 ---
- Free Text/Narrative Note: Chief Complaint: History of Present Illness: Surgical History: Social History: Tobacco: Alcohol: Drugs: Allergies: Pertinent Laboratory Results / Pertinent Radiology Results / Pertinent Diagnostic Results / Pertinent Vital Signs: Assessment / Plan: Disposition / Follow Up:
[2021-06-28] MEDS: Cholecalciferol (Vitamin D3) 25 MCG Tab PO SCH (20:05)
[2021-06-28] MEDS: Doxycycline Monohydrate 100 MG Cap PO SCH (20:05)
[2021-06-28] MEDS ORDERED: Tamsulosin 0.4 MG Cap.ER PO ONE (21:30)
[2021-06-28] MEDS: Formoterol/Mometasone 100-5 MCG 8.8 GM Inhaler IH SCH (21:37)
[2021-06-28] MEDS: Metoprolol Tartrate 25 MG Tab PO SCH (21:39)
[2021-06-28] MEDS: traZODone 50 MG Tab PO PRN (22:15)
[2021-06-29 06:42] LABS: ANION GAP 14.7 mEq/L (7-13); CHLORIDE,CL 105 mmol/L (98-107); SODIUM,NA 143 mmol/L (136-145)
--- NOTE | 2021-06-29 07:34 | PCM.SN.2 ---
- Free Text/Narrative Note: START OF DOCTOR OMAYRA PROGRESS NOTE Subjective: The patient endorses no complaints at this time. He denies fever, rigors, nausea, vomiting, cough, wheeze, abdominal pain, chest pain, dyspnea, or any other constitutional complaints. I explained to the patient his current medical condition and plan of care and I answered all of his questions Objective: General: -Alert -No acute distress -No dyspnea -No tachypnea Heart: -Regular rate -Regular rhythm -No murmurs -No gallops -No rubs Lungs: -No wheeze -No rhonchi -No rales Abdomen: -Normal bowel sounds in all four quadrants -No rebound -No guarding -No tenderness Extremities: -2/4 pulse in all four extremities -No clubbing -No cyanosis -No edema Additional Details / Additional Findings / Exceptions / Miscellaneous: Pertinent Laboratory Results / Pertinent Radiology Results / Pertinent Diagnostic Results / Pertinent Vital Signs: Vital signs stable. Hemoglobin 11.2 Assessment / Plan: Recurrent falls. Physical therapy consult. Occupational Therapy consult. Case management evaluation for possible placement. Vitamin D 1000 IU p.o. daily Hypokalemia. Will monitor potassium levels intermittently and supplement as necessary Hypernatremia. Will monitor sodium levels intermittently. BPH. Finasteride 5 mg p.o. daily plus Flomax 0.4 mg p.o. daily Insomnia Pneumonia. Doxycycline 100 mg p.o. twice daily History of cholelithiasis Hyperbilirubinemia. Will monitor bilirubin levels intermittently Iron deficiency anemia. Will monitor hemoglobin levels intermittently. Vitamin C 500 mg p.o. daily plus ferrous sulfate 3 and 25 mg p.o. twice daily COPD. Symbicort 80/4.5 mc puffs twice daily CHF. Metoprolol 12.5 mg p.o. twice daily Coronary artery disease, status post [place], status post [place]. Lipitor 40 mg p.o. nightly plus aspirin 81 mg p.o. daily plus Plavix 95 mg p.o. daily plus metoprolol 12.5 mg p.o. twice daily Hyperlipidemia. Lipitor 40 mg p.o. nightly Hypertension. Metoprolol 12.5 mg p.o. twice daily Arthritis Eczema Degenerative joint disease Poor dentition. Outpatient follow-up with dentistry DVT prophylaxis. Bilateral CD Disposition: Patient medically stable for discharge however he will require assessment by physical therapy and Occupational Therapy. Will determine discharge planning in conjunction with case management/social work END OF DOCTOR EMAMIS PROGRESS NOTE
[2021-06-29] MEDS: Doxycycline Monohydrate 100 MG Cap PO SCH ×2 (09:23→20:47)
[2021-06-29] MEDS: Ferrous Sulfate 325 MG Tab PO SCH ×2 (09:23→17:21)
[2021-06-29] MEDS: Aspirin 81 MG Tab.EC PO SCH (09:23)
[2021-06-29] MEDS: Folic Acid 1 MG Tab PO SCH (09:23)
[2021-06-29] MEDS: Multivitamins, Therapeutic with Minerals Tab PO SCH (09:23)
[2021-06-29] MEDS: Clopidogrel 75 MG Tab PO SCH (09:24)
[2021-06-29] MEDS: Cholecalciferol (Vitamin D3) 25 MCG Tab PO SCH (09:24)
[2021-06-29] MEDS: Ascorbic Acid 500 MG Tab PO SCH (09:24)
[2021-06-29] MEDS: Finasteride 5 MG Tab PO SCH (09:25)
[2021-06-29] MEDS: Formoterol/Mometasone 100-5 MCG 8.8 GM Inhaler IH SCH ×2 (09:26→20:11)
[2021-06-29] MEDS: Cyanocobalamin (Vitamin B12) 1,000 MCG Tab PO SCH (09:26)
[2021-06-29] MEDS: Metoprolol Tartrate 25 MG Tab PO SCH (09:26)
[2021-06-29] MEDS: Tamsulosin 0.4 MG Cap.ER PO SCH ×2 (17:21→17:36)
[2021-06-29] MEDS: Nicotine 14 MG/24 Hr Patch TRDERM SCH (17:22)
[2021-06-29] MEDS: Albuterol 6.7 GM Inhaler INH PRN (17:55)
[2021-06-29] MEDS: atorvaSTATin 20 MG Tab PO SCH (20:47)
[2021-06-29] MEDS: traZODone 50 MG Tab PO PRN (21:57)
[2021-06-30] MEDS: Albuterol 6.7 GM Inhaler INH PRN ×3 (00:19→18:40)
[2021-06-30] MEDS: Metoprolol Tartrate 25 MG Tab PO SCH ×3 (00:22→20:52)
--- NOTE | 2021-06-30 07:08 | PCM.SN.2 ---
- Free Text/Narrative Note: START OF DOCTOR OMAYRA PROGRESS NOTE Subjective: Patient complains of experiencing an upset stomach overnight and a transient episode of dyspnea however aside from this he endorses no complaints. He denies fever, rigors, nausea, vomiting, cough, wheeze, abdominal pain, chest pain, or any other constitutional complaints. I explained to the patient his current medical condition and plan of care and I have answered all of his questions Objective: General: -Alert -No acute distress -No dyspnea -No tachypnea Heart: -Regular rate -Regular rhythm -No murmurs -No gallops -No rubs Lungs: -No wheeze -No rhonchi -No rales Abdomen: -Normal bowel sounds in all four quadrants -No rebound -No guarding -No tenderness Extremities: -2/4 pulse in all four extremities -No clubbing -No cyanosis -No edema Additional Details / Additional Findings / Exceptions / Miscellaneous: Pertinent Laboratory Results / Pertinent Radiology Results / Pertinent Diagnostic Results / Pertinent Vital Signs: Blood pressure 144/80 however it is labile. Hemoglobin 1.4 Assessment / Plan: Recurrent falls. Physical therapy consult. Occupational Therapy consult. Case management evaluation for possible placement. Vitamin D 1000 IU p.o. daily Hypokalemia. Will monitor potassium levels intermittently and supplement as necessary Nicotine abuse via chewing tobacco. The patient will be counseled regarding tobacco cessation Hypernatremia. Will monitor sodium levels intermittently. BPH. Finasteride 5 mg p.o. daily plus Flomax 0.4 mg p.o. daily Insomnia Pneumonia. Doxycycline 100 mg p.o. twice daily History of cholelithiasis Hyperbilirubinemia. Will monitor bilirubin levels intermittently Iron deficiency anemia. Will monitor hemoglobin levels intermittently. Vitamin C 500 mg p.o. daily plus ferrous sulfate 3 and 25 mg p.o. twice daily COPD. Symbicort 80/4.5 mc puffs twice daily CHF. Metoprolol 12.5 mg p.o. twice daily Coronary artery disease, status post [place], status post [place]. Lipitor 40 mg p.o. nightly plus aspirin 81 mg p.o. daily plus Plavix 95 mg p.o. daily plus metoprolol 12.5 mg p.o. twice daily Hyperlipidemia. Lipitor 40 mg p.o. nightly Hypertension. Metoprolol 12.5 mg p.o. twice daily Arthritis Eczema Degenerative joint disease Poor dentition. Outpatient follow-up with dentistry DVT prophylaxis. Bilateral CD Disposition: Patient medically stable for discharge. Will determine discharge planning with physical therapy and Occupational Therapy in conjunction with case management/social work END OF DOCTOR EMAMIS PROGRESS NOTE
[2021-06-30] MEDS: Clopidogrel 75 MG Tab PO SCH (09:28)
[2021-06-30] MEDS: Multivitamins, Therapeutic with Minerals Tab PO SCH (09:28)
[2021-06-30] MEDS: Ascorbic Acid 500 MG Tab PO SCH (09:29)
[2021-06-30] MEDS: Aspirin 81 MG Tab.EC PO SCH (09:29)
[2021-06-30] MEDS: Folic Acid 1 MG Tab PO SCH (09:30)
[2021-06-30] MEDS: Finasteride 5 MG Tab PO SCH (09:30)
[2021-06-30] MEDS: Ferrous Sulfate 325 MG Tab PO SCH ×2 (09:30→17:58)
[2021-06-30] MEDS: Cholecalciferol (Vitamin D3) 25 MCG Tab PO SCH (09:31)
[2021-06-30] MEDS: Doxycycline Monohydrate 100 MG Cap PO SCH ×2 (09:31→20:51)
[2021-06-30] MEDS: Nicotine 14 MG/24 Hr Patch TRDERM SCH (09:32)
[2021-06-30] MEDS: Cyanocobalamin (Vitamin B12) 1,000 MCG Tab PO SCH (09:32)
[2021-06-30] MEDS: Formoterol/Mometasone 100-5 MCG 8.8 GM Inhaler IH SCH ×2 (09:41→20:53)
[2021-06-30] MEDS: Tamsulosin 0.4 MG Cap.ER PO SCH (17:58)
[2021-06-30] MEDS: atorvaSTATin 20 MG Tab PO SCH (20:51)
[2021-06-30] MEDS: traZODone 50 MG Tab PO PRN (22:31)
[2021-07-01] MEDS: Albuterol 6.7 GM Inhaler INH PRN ×2 (01:06→09:45)
--- NOTE | 2021-07-01 07:29 | PCM.SN.2 ---
- Free Text/Narrative Note: START OF DOCTOR DEREKMIHaseeb PROGRESS NOTE Subjective: The patient is complaining of shortness of breath as well as cough which is nonproductive. Aside from the symptoms he endorses no complaints. He denies fever, rigors, nausea, vomiting, wheeze, abdominal pain, chest pain. I explained to the patient his current medical condition and plan of care and I have answered all of his questions Objective: General: -Alert -No acute distress -No dyspnea -No tachypnea Heart: -Regular rate -Regular rhythm -No murmurs -No gallops -No rubs Lungs: -No wheeze -No rhonchi -No rales -Distant breath sounds bilaterally Abdomen: -Normal bowel sounds in all four quadrants -No rebound -No guarding -No tenderness Extremities: -2/4 pulse in all four extremities -No clubbing -No cyanosis -No edema Additional Details / Additional Findings / Exceptions / Miscellaneous: Pertinent Laboratory Results / Pertinent Radiology Results / Pertinent Diagnostic Results / Pertinent Vital Signs: Blood pressure 145/83 Assessment / Plan: Recurrent falls. Physical therapy consult. Occupational Therapy consult. Case management evaluation for possible placement. Vitamin D 1000 IU p.o. daily Hypokalemia. Will monitor potassium levels intermittently and supplement as necessary Nicotine abuse via chewing tobacco. The patient will be counseled regarding tobacco cessation Hypernatremia. Will monitor sodium levels intermittently. BPH. Finasteride 5 mg p.o. daily plus Flomax 0.4 mg p.o. daily Insomnia Pneumonia. Doxycycline 100 mg p.o. twice daily History of cholelithiasis Hyperbilirubinemia. Will monitor bilirubin levels intermittently Iron deficiency anemia. Will monitor hemoglobin levels intermittently. Vitamin C 500 mg p.o. daily plus ferrous sulfate 3 and 25 mg p.o. twice daily COPD. Solu-Medrol 60 mg IV every 8 hours plus DuoNeb every 4 hours CHF. Metoprolol 12.5 mg p.o. twice daily Coronary artery disease, status post [place], status post [place]. Lipitor 40 mg p.o. nightly plus aspirin 81 mg p.o. daily plus Plavix 95 mg p.o. daily plus metoprolol 12.5 mg p.o. twice daily Hyperlipidemia. Lipitor 40 mg p.o. nightly Hypertension. Metoprolol 12.5 mg p.o. twice daily plus lisinopril 20 mg p.o. daily Arthritis Eczema Degenerative joint disease Poor dentition. Outpatient follow-up with dentistry GI prophylaxis. Protonix 40 mg p.o. daily DVT prophylaxis. Bilateral CD Disposition: Because of patient's development of dyspnea, he may warrant observation for at least 24 hours. However I will follow up with the patient regarding his symptoms and I will discuss the patient's case with case management, physical therapy, and Occupational Therapy END OF DOCTOR EMAMIS PROGRESS NOTE
[2021-07-01] MEDS: Metoprolol Tartrate 25 MG Tab PO SCH ×2 (09:49→21:07)
[2021-07-01] MEDS: Multivitamins, Therapeutic with Minerals Tab PO SCH (09:50)
[2021-07-01] MEDS: Cholecalciferol (Vitamin D3) 25 MCG Tab PO SCH (09:50)
[2021-07-01] MEDS: Clopidogrel 75 MG Tab PO SCH (09:50)
[2021-07-01] MEDS: Aspirin 81 MG Tab.EC PO SCH (09:50)
[2021-07-01] MEDS: Cyanocobalamin (Vitamin B12) 1,000 MCG Tab PO SCH (09:50)
[2021-07-01] MEDS: Finasteride 5 MG Tab PO SCH (09:50)
[2021-07-01] MEDS: Lisinopril 20 MG Tab PO SCH (09:50)
[2021-07-01] MEDS: Doxycycline Monohydrate 100 MG Cap PO SCH ×2 (09:50→21:06)
[2021-07-01] MEDS: Folic Acid 1 MG Tab PO SCH (09:51)
[2021-07-01] MEDS: Ferrous Sulfate 325 MG Tab PO SCH ×2 (09:51→18:07)
[2021-07-01] MEDS: Ascorbic Acid 500 MG Tab PO SCH (09:51)
[2021-07-01] MEDS: methylPREDNISolone Sodium Succinate 40 MG/1 ML SDV IVPUSH SCH ×3 (09:51→22:35)
[2021-07-01] MEDS: Nicotine 14 MG/24 Hr Patch TRDERM SCH (09:52)
[2021-07-01] MEDS: Albuterol/Ipratropium 3.0-0.5 MG/3 ML Neb Soln NEB SCH ×4 (11:21→22:35)
[2021-07-01] MEDS: Tamsulosin 0.4 MG Cap.ER PO SCH (18:07)
[2021-07-01] MEDS: traZODone 50 MG Tab PO PRN (21:06)
[2021-07-01] MEDS: atorvaSTATin 20 MG Tab PO SCH (21:06)
[2021-07-02] MEDS: Albuterol/Ipratropium 3.0-0.5 MG/3 ML Neb Soln NEB SCH ×3 (03:24→11:45)
[2021-07-02] MEDS ORDERED: Pantoprazole 40 MG Tab.CR PO SCH (06:00)
--- NOTE | 2021-07-02 07:19 | PCM.SN.2 ---
- Free Text/Narrative Note: START OF DOCTOR OMAYRA PROGRESS NOTE Subjective: The patient complains of minor left ankle pain. Aside from this he endorses no complaints. He indicates that his respiratory status has greatly improved. He denies fever, rigors, nausea, vomiting, cough, wheeze, abdominal pain, chest pain, dyspnea, or any other constitutional complaints. I explained to the patient his current medical condition and plan of care and I have answered all his questions Objective: General: -Alert -No acute distress -No dyspnea -No tachypnea Heart: -Regular rate -Regular rhythm -No murmurs -No gallops -No rubs Lungs: -No wheeze -No rhonchi -No rales Abdomen: -Normal bowel sounds in all four quadrants -No rebound -No guarding -No tenderness Extremities: -2/4 pulse in all four extremities -No clubbing -No cyanosis -No edema Additional Details / Additional Findings / Exceptions / Miscellaneous: Pertinent Laboratory Results / Pertinent Radiology Results / Pertinent Diagnostic Results / Pertinent Vital Signs: Vital signs stable Assessment / Plan: Recurrent falls. Physical therapy consult. Occupational Therapy consult. Case management evaluation for possible placement. Vitamin D 1000 IU p.o. daily Hypokalemia. Will monitor potassium levels intermittently and supplement as necessary Nicotine abuse via chewing tobacco. The patient will be counseled regarding tobacco cessation Hypernatremia. Will monitor sodium levels intermittently. BPH. Finasteride 5 mg p.o. daily plus Flomax 0.4 mg p.o. daily Insomnia Pneumonia. Doxycycline 100 mg p.o. twice daily History of cholelithiasis Hyperbilirubinemia. Will monitor bilirubin levels intermittently Iron deficiency anemia. Will monitor hemoglobin levels intermittently. Vitamin C 500 mg p.o. daily plus ferrous sulfate 3 and 25 mg p.o. twice daily COPD. Solu-Medrol 60 mg IV every 8 hours plus DuoNeb every 4 hours CHF. Metoprolol 12.5 mg p.o. twice daily Coronary artery disease, status post [place], status post [place]. Lipitor 40 mg p.o. nightly plus aspirin 81 mg p.o. daily plus Plavix 95 mg p.o. daily plus metoprolol 12.5 mg p.o. twice daily Hyperlipidemia. Lipitor 40 mg p.o. nightly Hypertension. Metoprolol 12.5 mg p.o. twice daily plus lisinopril 20 mg p.o. daily Arthritis Eczema Degenerative joint disease Poor dentition. Outpatient follow-up with dentistry GI prophylaxis. Protonix 40 mg p.o. daily DVT prophylaxis. Bilateral CD Disposition: From a medical standpoint, the patient appears stable for discharge however I will discuss the patient's case with case management/social work, physical therapy, and Occupational Therapy to determine disposition END OF DOCTOR EMAMIS PROGRESS NOTE
[2021-07-02] MEDS: Metoprolol Tartrate 25 MG Tab PO SCH (08:26)
[2021-07-02] MEDS: Ascorbic Acid 500 MG Tab PO SCH (08:27)
[2021-07-02] MEDS: Lisinopril 20 MG Tab PO SCH (08:27)
[2021-07-02] MEDS: Finasteride 5 MG Tab PO SCH (08:27)
[2021-07-02] MEDS: Cyanocobalamin (Vitamin B12) 1,000 MCG Tab PO SCH (08:28)
[2021-07-02] MEDS: Ferrous Sulfate 325 MG Tab PO SCH (08:28)
[2021-07-02] MEDS: Multivitamins, Therapeutic with Minerals Tab PO SCH (08:28)
[2021-07-02] MEDS: Cholecalciferol (Vitamin D3) 25 MCG Tab PO SCH (08:29)
[2021-07-02] MEDS: Clopidogrel 75 MG Tab PO SCH (08:29)
[2021-07-02] MEDS: Aspirin 81 MG Tab.EC PO SCH (08:29)
[2021-07-02] MEDS: Folic Acid 1 MG Tab PO SCH (08:29)
[2021-07-02] MEDS: Doxycycline Monohydrate 100 MG Cap PO SCH (08:30)
[2021-07-02] MEDS: Nicotine 14 MG/24 Hr Patch TRDERM SCH (08:30)
[2021-07-02] MEDS: methylPREDNISolone Sodium Succinate 40 MG/1 ML SDV IVPUSH SCH (08:31)
--- NOTE | 2021-07-02 10:40 | PCM.SN.2 ---
- Free Text/Narrative Note: START OF DOCTOR EMAMIS DISCHARGE SUMMARY Date of Admission: June 28, 2021 Date of Discharge: 10:38 AM on July 02, 2021 Primary Diagnosis: Recurrent falls Secondary Diagnosis: Hypokalemia, resolved Nicotine abuse via chewing tobacco Hyponatremia, resolved BPH Insomnia Pneumonia History of cholelithiasis Hyperbilirubinemia Iron deficiency anemia COPD CHF Coronary artery disease, status post [place], status post stent Hyperlipidemia Hypertension Arthritis Eczema Degenerative joint disease Poor dentition Consultations: None Condition on Discharge: Fair Disposition: Patient will be discharged/transferred to swing bed status for rehabilitation and strengthening Upon discharge from swing bed, patient will require follow-up with dentistry for diagnosis of poor dentition Discharge Medications: Trazodone 50 mg p.o. nightly as needed insomnia Flomax 0.4 mg p.o. daily Protonix 40 mg p.o. daily Nicotine patch 14 mg daily Multivitamin 1 tab p.o. daily Metoprolol 12.5 mg p.o. twice daily Lisinopril 20 mg p.o. daily Folic acid 1 mg p.o. daily Finasteride 5 mg p.o. daily Ferrous sulfate 325 mg p.o. twice daily Doxycycline 100 mg p.o. twice daily until 11:59 PM on July 04, 2021 Vitamin B12 1000 g p.o. daily Plavix 75 mg p.o. daily Tylenol 650 mg p.o. every 4 hours as needed pain Proventil HFA: 90 mg/spray: 2 puffs every 6 hours as needed shortness of breath/wheeze DuoNeb every 4 hours Vitamin C 500 mg p.o. daily Aspirin 81 mg p.o. daily Lipitor 40 mg p.o. nightly Vitamin D 25 mg p.o. daily END OF DOCTOR EMAMIS DISCHARGE SUMMARY
== END 2021-07-02 12:18 | disposition swing bed (61) | DRG 194 ==
LOC: DL.ED 13:02 → INTOOBSV 17:57 → OBSVTOIN 17:57 → DL.MS 17:57 → UNDOADMOB 17:57 → DL.MS 18:46 → OBSVTOIN 19:29 → DL.MS 19:29 → UNDODISIN 07-02 12:18
PROVIDERS: ADMIT Internal Medicine; ATTEND Internal Medicine
DX: J18.9 Pneumonia, unspecified organism (principal); D64.9 Anemia, unspecified; E87.0 Hyperosmolality and hypernatremia; J44.0 Chronic obstructive pulmonary disease with (acute) lower respiratory infection; H33.21 Serous retinal detachment, right eye; E87.6 Hypokalemia; F17.220 Nicotine dependence, chewing tobacco, uncomplicated; G47.00 Insomnia, unspecified; Z20.822 Contact with and (suspected) exposure to COVID-19; N40.0 Benign prostatic hyperplasia without lower urinary tract symptoms; D50.9 Iron deficiency anemia, unspecified; I11.0 Hypertensive heart disease with heart failure; N42.9 Disorder of prostate, unspecified; I50.9 Heart failure, unspecified; M19.90 Unspecified osteoarthritis, unspecified site; K00.7 Teething syndrome; S00.03XA Contusion of scalp, initial encounter; E78.5 Hyperlipidemia, unspecified; W19.XXXA Unspecified fall, initial encounter; I25.10 Atherosclerotic heart disease of native coronary artery without angina pectoris; R29.6 Repeated falls; E80.6 Other disorders of bilirubin metabolism; M25.572 Pain in left ankle and joints of left foot; Z95.5 Presence of coronary angioplasty implant and graft; Z98.41 Cataract extraction status, right eye; Z98.42 Cataract extraction status, left eye; I25.2 Old myocardial infarction; Z90.49 Acquired absence of other specified parts of digestive tract; Z79.01 Long term (current) use of anticoagulants; Z28.82 Immunization not carried out because of caregiver refusal; Z91.81 History of falling; Z79.02 Long term (current) use of antithrombotics/antiplatelets; Z79.82 Long term (current) use of aspirin; Z79.51 Long term (current) use of inhaled steroids; Z79.899 Other long term (current) drug therapy
CPT/HCPCS: 36415; 70450; 71045; 72125; 73110-RT; 80048; 80053; 80305-QW; 80307; 81001; 82272; 82550; 82607; 82728; 82746; 83540; 83550; 83605; 83735; 84439; 84443; 84484; 85018; 85025; 85610; 85730; 86140; 87493; 92610-GN; 93005; 94640; 96365; 96366; 96368; 96375; 97162-GP; 97166-GO; 97530-GO; 99284; 99285-25; A9270-GY; J0456; J0696; J2920; J2930; J3480; J7050; J7620-GY; U0002

== ENCOUNTER 2021-07-02 09:49 | Inpatient (IN) | payer MEDICARE, BC ==
[2021-07-02] MEDS ORDERED: Sodium Chloride 0.9% 10 ML Syringe FLUSH PRN ×2 (10:41)
[2021-07-02] MEDS ORDERED: Albuterol 6.7 GM Inhaler INH PRN (10:41)
[2021-07-02] MEDS ORDERED: Ondansetron 4 MG/2 ML SDV IVPUSH PRN (10:41)
--- NOTE | 2021-07-02 10:48 | PCM.SN.2 ---
- Free Text/Narrative Note: START OF DOCTOR EMAMIS HISTORY AND PHYSICAL / CONSULTATION NOTE Chief Complaint: Admission to swing bed status for rehabilitation History of Present Illness: The patient is an 86-year-old male who is being admitted to swing bed status following acute hospital stay from June 28, 2021 until July 02, 2021 for diagnosis of recurrent falls. During this acute hospitalization, the patient was also treated for pneumonia in addition to his chronic medical issues. For further information regarding history of present illness, refer to copied paragraph below from the H&P for his acute hospital stay from June 28 to the July 02, 2001: The patient is a 86 year-old male presents to [facility] of recurrent falls. He carries had 3 falls in the last 2 weeks. He states that he has had progressive weakness of his bilateral extremities which have caused him to fall. He states that his last fall was in June 27, 2021 with subsequent fall onto his left side and head trauma. He is equivocal as to whether he exhibited a loss consciousness. The patient denies diplopia, blurry vision, dysphagia, dysphagia, paresthesia/anesthesia of any part of his body. Aside from his bilateral extremities he denies any myasthenia. The patient missed dyspnea however he denies chest pain, lightheadedness, dizziness, diaphoresis, palpitations, since his rapid heartbeat, sensation irregular heartbeat. He presents for further evaluation Surgical History: Previous documentation of bilateral cataract surgery of which the patient is uncertain, right rotator cuff surgery, surgery of the right eye for detached retina, cardiac stent placement, appendectomy, cholecystectomy Family History: Coronary artery disease Social History: Tobacco: Former smoker Alcohol: Rare Caffeine: Coffee, cola Drugs: Never Allergies: No known drug allergies Code Status: Full Pertinent Laboratory Results / Pertinent Radiology Results / Pertinent Diagnostic Results / Pertinent Vital Signs: Blood pressure 119/58, pulse 88, respirations 20, temperature 98 degrees, 98% room air Physical Examination: General: -Alert -No acute distress -No dyspnea -No tachypnea Head: -Atraumatic -Normocephalic Eyes: -Pupils equally round and reactive to light and accommodation -Extraocular muscles intact Neurological: -Cranial nerves II-XII intact Neck: -No jugular venous distention -No thyromegaly -No cervical lymphadenopathy Heart: -Regular rate -Regular rhythm -No murmurs -No gallops -No rubs Lungs: -No wheeze -No rhonchi -No rales Abdomen: -Normal bowel sounds in all four quadrants -No rebound -No guarding -No tenderness Extremities: -2/4 pulse in all four extremities -No clubbing -No cyanosis -No edema -No calf tenderness present bilaterally -Negative Homans sign bilaterally Musculoskeletal: -5 out of 5 left upper external strength. There is decreased range of motion of the right upper extremity secondary to pain -5/5 bilateral lower extremity strength -Sensorium of bilateral upper extremities are equal and intact -Sensorium of bilateral lower extremities are equal and intact Additional Details / Additional Findings / Exceptions / Miscellaneous: Assessment / Plan: Admission to swing bed status for diagnosis of recurrent falls. Physical therapy. Occupational Therapy. Vitamin D 1000 IU p.o. daily Hypokalemia. Will monitor potassium levels intermittently and supplement as necessary Nicotine abuse via chewing tobacco. The patient will be counseled regarding tobacco cessation. Nicotine patch 14 mg daily Hypernatremia. Will monitor sodium levels intermittently. BPH. Finasteride 5 mg p.o. daily plus Flomax 0.4 mg p.o. daily Insomnia Pneumonia. Doxycycline 100 mg p.o. twice daily until 11:59 PM on June 14, 2021 History of cholelithiasis Hyperbilirubinemia. Will monitor bilirubin levels intermittently Iron deficiency anemia. Will monitor hemoglobin levels intermittently. Vitamin C 500 mg p.o. daily plus ferrous sulfate 3 and 25 mg p.o. twice daily COPD. Prednisone 30 mg p.o. daily 8 hours plus DuoNeb every 4 hours CHF. Metoprolol 12.5 mg p.o. twice daily Coronary artery disease, status post [place], status post [place]. Lipitor 40 mg p.o. nightly plus aspirin 81 mg p.o. daily plus Plavix 95 mg p.o. daily plus metoprolol 12.5 mg p.o. twice daily Hyperlipidemia. Lipitor 40 mg p.o. nightly Hypertension. Metoprolol 12.5 mg p.o. twice daily plus lisinopril 20 mg p.o. daily Arthritis Eczema Degenerative joint disease Poor dentition. Outpatient follow-up with dentistry GI prophylaxis. Protonix 40 mg p.o. daily DVT prophylaxis. Bilateral CD Disposition: The patient we can for discharge when deemed safe and appropriate by physical therapy and Occupational Therapy in conjunction with case management/social work END OF DOCTOR EMAMIS HISTORY AND PHYSICAL / CONSULTATION NOTE
[2021-07-02] MEDS ORDERED: methylPREDNISolone Sodium Succinate 40 MG/1 ML SDV IVPUSH SCH (15:30)
[2021-07-02] MEDS: Albuterol/Ipratropium 3.0-0.5 MG/3 ML Neb Soln NEB SCH ×3 (16:08→23:05)
[2021-07-02] MEDS ORDERED: predniSONE 20 MG Tab PO ONE (17:00)
[2021-07-02] MEDS: Tamsulosin 0.4 MG Cap.ER PO SCH (17:34)
[2021-07-02] MEDS: Ferrous Sulfate 325 MG Tab PO SCH (17:35)
[2021-07-02] MEDS ORDERED: Metoprolol Tartrate 25 MG Tab PO SCH (21:00)
[2021-07-02] MEDS: Doxycycline Monohydrate 100 MG Cap PO SCH (21:27)
[2021-07-02] MEDS: atorvaSTATin 20 MG Tab PO SCH (21:27)
[2021-07-02] MEDS: traZODone 50 MG Tab PO PRN (21:27)
[2021-07-03] MEDS: Albuterol/Ipratropium 3.0-0.5 MG/3 ML Neb Soln NEB SCH ×6 (04:57→23:14)
[2021-07-03] MEDS: Pantoprazole 40 MG Tab.CR PO SCH (05:00)
[2021-07-03] MEDS: predniSONE 20 MG Tab PO SCH (09:04)
[2021-07-03] MEDS: Ferrous Sulfate 325 MG Tab PO SCH ×2 (09:04→17:22)
[2021-07-03] MEDS: Multivitamins, Therapeutic with Minerals Tab PO SCH (09:04)
[2021-07-03] MEDS: Folic Acid 1 MG Tab PO SCH (10:24)
[2021-07-03] MEDS: Ascorbic Acid 500 MG Tab PO SCH (10:25)
[2021-07-03] MEDS: Clopidogrel 75 MG Tab PO SCH (10:26)
[2021-07-03] MEDS: Finasteride 5 MG Tab PO SCH (10:27)
[2021-07-03] MEDS: Cholecalciferol (Vitamin D3) 25 MCG Tab PO SCH (10:28)
[2021-07-03] MEDS: Cyanocobalamin (Vitamin B12) 1,000 MCG Tab PO SCH (10:29)
[2021-07-03] MEDS: Aspirin 81 MG Tab.EC PO SCH (10:30)
[2021-07-03] MEDS: Nicotine 14 MG/24 Hr Patch TRDERM SCH (10:31)
[2021-07-03] MEDS: Lisinopril 20 MG Tab PO SCH (11:00)
[2021-07-03] MEDS: Doxycycline Monohydrate 100 MG Cap PO SCH ×2 (12:00→21:34)
[2021-07-03] MEDS ORDERED: predniSONE 20 MG Tab PO ONE (17:00)
[2021-07-03] MEDS: Tamsulosin 0.4 MG Cap.ER PO SCH (17:36)
[2021-07-03] MEDS: Metoprolol Tartrate 25 MG Tab PO SCH (21:33)
[2021-07-03] MEDS: atorvaSTATin 20 MG Tab PO SCH (21:34)
[2021-07-03] MEDS: traZODone 50 MG Tab PO PRN (21:38)
[2021-07-04] MEDS: Albuterol/Ipratropium 3.0-0.5 MG/3 ML Neb Soln NEB SCH ×6 (03:48→23:41)
[2021-07-04] MEDS: Pantoprazole 40 MG Tab.CR PO SCH (06:14)
[2021-07-04] MEDS: Aspirin 81 MG Tab.EC PO SCH (08:19)
[2021-07-04] MEDS: Ascorbic Acid 500 MG Tab PO SCH (08:19)
[2021-07-04] MEDS: Cholecalciferol (Vitamin D3) 25 MCG Tab PO SCH (08:19)
[2021-07-04] MEDS: Ferrous Sulfate 325 MG Tab PO SCH ×2 (08:19→17:31)
[2021-07-04] MEDS: Clopidogrel 75 MG Tab PO SCH (08:19)
[2021-07-04] MEDS: Cyanocobalamin (Vitamin B12) 1,000 MCG Tab PO SCH (08:19)
[2021-07-04] MEDS: Multivitamins, Therapeutic with Minerals Tab PO SCH (08:19)
[2021-07-04] MEDS: predniSONE 20 MG Tab PO SCH (08:19)
[2021-07-04] MEDS: Folic Acid 1 MG Tab PO SCH (08:19)
[2021-07-04] MEDS: Metoprolol Tartrate 25 MG Tab PO SCH ×2 (08:20→21:25)
[2021-07-04] MEDS: Finasteride 5 MG Tab PO SCH (08:20)
[2021-07-04] MEDS: Lisinopril 20 MG Tab PO SCH (08:20)
[2021-07-04] MEDS: Nicotine 14 MG/24 Hr Patch TRDERM SCH (08:24)
[2021-07-04] MEDS: Doxycycline Monohydrate 100 MG Cap PO SCH (10:22)
[2021-07-04] MEDS: Tamsulosin 0.4 MG Cap.ER PO SCH (17:31)
[2021-07-04] MEDS: Acetaminophen 325 MG Tab PO PRN (21:23)
[2021-07-04] MEDS: traZODone 50 MG Tab PO PRN (21:23)
[2021-07-04] MEDS: atorvaSTATin 20 MG Tab PO SCH (21:25)
[2021-07-05] MEDS: Albuterol/Ipratropium 3.0-0.5 MG/3 ML Neb Soln NEB SCH ×6 (03:59→22:59)
[2021-07-05] MEDS: Pantoprazole 40 MG Tab.CR PO SCH (06:22)
[2021-07-05] MEDS: Aspirin 81 MG Tab.EC PO SCH (08:13)
[2021-07-05] MEDS: Multivitamins, Therapeutic with Minerals Tab PO SCH (08:13)
[2021-07-05] MEDS: predniSONE 20 MG Tab PO SCH (08:13)
[2021-07-05] MEDS: Folic Acid 1 MG Tab PO SCH (08:13)
[2021-07-05] MEDS: Metoprolol Tartrate 25 MG Tab PO SCH ×2 (08:14→21:26)
[2021-07-05] MEDS: Cyanocobalamin (Vitamin B12) 1,000 MCG Tab PO SCH (08:14)
[2021-07-05] MEDS: Ascorbic Acid 500 MG Tab PO SCH (08:14)
[2021-07-05] MEDS: Finasteride 5 MG Tab PO SCH (08:14)
[2021-07-05] MEDS: Clopidogrel 75 MG Tab PO SCH (08:14)
[2021-07-05] MEDS: Ferrous Sulfate 325 MG Tab PO SCH ×2 (08:14→17:27)
[2021-07-05] MEDS: Lisinopril 20 MG Tab PO SCH (08:14)
[2021-07-05] MEDS: Cholecalciferol (Vitamin D3) 25 MCG Tab PO SCH (08:14)
[2021-07-05] MEDS: Nicotine 14 MG/24 Hr Patch TRDERM SCH (09:28)
[2021-07-05] MEDS: Tamsulosin 0.4 MG Cap.ER PO SCH (17:30)
[2021-07-05] MEDS: atorvaSTATin 20 MG Tab PO SCH (21:23)
[2021-07-05] MEDS: traZODone 50 MG Tab PO PRN (21:25)
[2021-07-06] MEDS: Albuterol/Ipratropium 3.0-0.5 MG/3 ML Neb Soln NEB SCH ×2 (03:18→10:05)
[2021-07-06] MEDS: Pantoprazole 40 MG Tab.CR PO SCH (05:26)
--- NOTE | 2021-07-06 07:14 | PCM.SN.2 ---
- Free Text/Narrative Note: START OF DOCTOR OMAYRA PROGRESS NOTE Subjective: The patient endorses no complaints at this time. He denies fever, rigors, nausea, vomiting, cough, wheeze, abdominal pain, chest pain, dyspnea, or any other constitutional complaints. He states that he has been eating well. He indicates that he has been working with physical therapy and Occupational Therapy. Upon further questioning he complains of urinary frequency. I explained to the patient his current medical condition and plan of care and I have answered all of his questions Objective: General: -Alert -No acute distress -No dyspnea -No tachypnea Heart: -Regular rate -Regular rhythm -No murmurs -No gallops -No rubs Lungs: -No wheeze -No rhonchi -No rales Abdomen: -Normal bowel sounds in all four quadrants -No rebound -No guarding -No tenderness Extremities: -2/4 pulse in all four extremities -No clubbing -No cyanosis -No edema Additional Details / Additional Findings / Exceptions / Miscellaneous: Pertinent Laboratory Results / Pertinent Radiology Results / Pertinent Diagnostic Results / Pertinent Vital Signs: Vital signs stable Assessment / Plan: Admission to swing bed status for diagnosis of recurrent falls. Physical therapy. Occupational Therapy. Vitamin D 1000 IU p.o. daily Hypokalemia. Will monitor potassium levels intermittently and supplement as necessary Nicotine abuse via chewing tobacco. The patient will be counseled regarding tobacco cessation. Nicotine patch 14 mg daily Hypernatremia. Will monitor sodium levels intermittently. BPH. Finasteride 5 mg p.o. daily plus Flomax 0.4 mg p.o. daily Insomnia Pneumonia. Status post treatment History of cholelithiasis Hyperbilirubinemia. Will monitor bilirubin levels intermittently Iron deficiency anemia. Will monitor hemoglobin levels intermittently. Vitamin C 500 mg p.o. daily plus ferrous sulfate 3 and 25 mg p.o. twice daily COPD. Prednisone 30 mg p.o. daily 8 hours plus DuoNeb every 4 hours CHF. Metoprolol 12.5 mg p.o. twice daily Coronary artery disease, status post [place], status post [place]. Lipitor 40 mg p.o. nightly plus aspirin 81 mg p.o. daily plus Plavix 95 mg p.o. daily plus metoprolol 12.5 mg p.o. twice daily Hyperlipidemia. Lipitor 40 mg p.o. nightly Hypertension. Metoprolol 12.5 mg p.o. twice daily plus lisinopril 20 mg p.o. daily Arthritis Eczema Degenerative joint disease Poor dentition. Outpatient follow-up with dentistry GI prophylaxis. Protonix 40 mg p.o. daily DVT prophylaxis. Bilateral CD Disposition: The patient we can for discharge when deemed safe and appropriate by physical therapy and Occupational Therapy in conjunction with case management/social work END OF DOCTOR LENINS PROGRESS NOTE
[2021-07-06] MEDS ORDERED: Albuterol/Ipratropium 3.0-0.5 MG/3 ML Neb Soln NEB PRN (08:46)
[2021-07-06] MEDS: Cholecalciferol (Vitamin D3) 25 MCG Tab PO SCH (09:09)
[2021-07-06] MEDS: Finasteride 5 MG Tab PO SCH (09:09)
[2021-07-06] MEDS: Ascorbic Acid 500 MG Tab PO SCH (09:10)
[2021-07-06] MEDS: Folic Acid 1 MG Tab PO SCH (09:10)
[2021-07-06] MEDS: Aspirin 81 MG Tab.EC PO SCH (09:10)
[2021-07-06] MEDS: Lisinopril 20 MG Tab PO SCH (09:10)
[2021-07-06] MEDS: Multivitamins, Therapeutic with Minerals Tab PO SCH (09:10)
[2021-07-06] MEDS: Cyanocobalamin (Vitamin B12) 1,000 MCG Tab PO SCH (09:11)
[2021-07-06] MEDS: Clopidogrel 75 MG Tab PO SCH (09:11)
[2021-07-06] MEDS: Ferrous Sulfate 325 MG Tab PO SCH ×2 (09:11→17:54)
[2021-07-06] MEDS: Metoprolol Tartrate 25 MG Tab PO SCH ×2 (09:12→20:53)
[2021-07-06] MEDS: predniSONE 20 MG Tab PO SCH (09:12)
[2021-07-06] MEDS: Nicotine 14 MG/24 Hr Patch TRDERM SCH (09:13)
[2021-07-06] MEDS ORDERED: Loperamide 2 MG Cap PO PRN (13:53)
[2021-07-06] MEDS ORDERED: Albuterol 6.7 GM Inhaler INH PRN (15:53)
[2021-07-06] MEDS: Tamsulosin 0.4 MG Cap.ER PO SCH (17:54)
[2021-07-06] MEDS: atorvaSTATin 20 MG Tab PO SCH (20:55)
[2021-07-06] MEDS: traZODone 50 MG Tab PO PRN (20:55)
[2021-07-06] MEDS: Acetaminophen 325 MG Tab PO PRN (20:55)
[2021-07-07] MEDS: Pantoprazole 40 MG Tab.CR PO SCH (05:11)
[2021-07-07] MEDS: Ascorbic Acid 500 MG Tab PO SCH (08:40)
[2021-07-07] MEDS: Clopidogrel 75 MG Tab PO SCH (08:40)
[2021-07-07] MEDS: Cholecalciferol (Vitamin D3) 25 MCG Tab PO SCH (08:41)
[2021-07-07] MEDS: Finasteride 5 MG Tab PO SCH (08:41)
[2021-07-07] MEDS: Aspirin 81 MG Tab.EC PO SCH (08:42)
[2021-07-07] MEDS: Lisinopril 20 MG Tab PO SCH (08:42)
[2021-07-07] MEDS: Folic Acid 1 MG Tab PO SCH (08:42)
[2021-07-07] MEDS: Cyanocobalamin (Vitamin B12) 1,000 MCG Tab PO SCH (08:43)
[2021-07-07] MEDS: predniSONE 20 MG Tab PO SCH (08:43)
[2021-07-07] MEDS: Multivitamins, Therapeutic with Minerals Tab PO SCH (08:44)
[2021-07-07] MEDS: Metoprolol Tartrate 25 MG Tab PO SCH ×2 (08:45→20:54)
[2021-07-07] MEDS: Ferrous Sulfate 325 MG Tab PO SCH ×2 (08:45→17:57)
[2021-07-07] MEDS: Nicotine 14 MG/24 Hr Patch TRDERM SCH (08:46)
[2021-07-07] MEDS: Tamsulosin 0.4 MG Cap.ER PO SCH (17:57)
[2021-07-07] MEDS: Formoterol/Mometasone 100-5 MCG 8.8 GM Inhaler IH SCH (18:33)
[2021-07-07] MEDS: traZODone 50 MG Tab PO PRN (20:53)
[2021-07-07] MEDS: atorvaSTATin 20 MG Tab PO SCH (20:53)
[2021-07-07] MEDS: Acetaminophen 325 MG Tab PO PRN (20:56)
[2021-07-08] MEDS: Pantoprazole 40 MG Tab.CR PO SCH (06:07)
[2021-07-08] MEDS: Formoterol/Mometasone 100-5 MCG 8.8 GM Inhaler IH SCH (06:07)
--- NOTE | 2021-07-08 06:52 | PCM.SN.2 ---
- Free Text/Narrative Note: START OF DOCTOR EMAMIS DISCHARGE SUMMARY Date of Admission: July 02, 2021 Date of Discharge: 6:49 AM on July 08, 2021 Primary Diagnosis: Status post hospitalization for swing bed status for diagnosis of recurrent falls Secondary Diagnosis: Hypokalemia, resolved Nicotine abuse via chewing tobacco Hyponatremia, resolved BPH Insomnia Pneumonia, status post treatment History of cholelithiasis Hyperbilirubinemia Iron deficiency anemia COPD CHF Coronary artery disease, status post [place], status post stent Hyperlipidemia Hypertension Arthritis Eczema Degenerative joint disease Poor dentition Consultations: None Condition on Discharge: Fair Disposition: The patient will be advised to follow-up with his primary care physician or with a provider 5 to 10 days post discharge for posthospitalization evaluation The patient is advised to follow-up with dentistry as soon as possible post discharge for diagnosis of poor dentition Discharge Medications: Folic acid 1 mg p.o. daily Imodium 2 mg p.o. every 4 hours as needed diarrhea Nitroglycerin 0.4 mg sublingually every 5 minutes as needed chest pain. Call 911 if there is no resolution after 3rd dose Metoprolol 12.5 mg p.o. twice daily Symbicort 80/4.5 mc puffs twice daily Proventil HFA: 90 mcg/spray: 2 puffs every 6 hours as needed shortness of breath/wheeze Trazodone 50 mg p.o. nightly as needed insomnia Flomax 0.4 mg p.o. daily Prednisone 10 mg p.o.: 2 tabs daily x3 days then one tab daily x3 days. Quantity sufficient. Zero refills Lisinopril 40 mg p.o. daily Multivitamin one tab p.o. daily Vitamin C 500 mg p.o. daily Aspirin 81 mg p.o. daily Lipitor 40 mg p.o. nightly Vitamin D 25 mcg p.o. daily Plavix 75 mg p.o. daily Vitamin B12 1000 mcg p.o. daily Ferrous sulfate 3 and 25 mg p.o. twice daily Finasteride 5 mg p.o. daily END OF DOCTOR EMAMIS DISCHARGE SUMMARY
[2021-07-08] MEDS ORDERED: predniSONE 10 MG Tab PO SCH (07:00)
[2021-07-08] MEDS ORDERED: predniSONE 20 MG Tab PO SCH (08:00)
[2021-07-08] MEDS: Folic Acid 1 MG Tab PO SCH (08:19)
[2021-07-08] MEDS: Finasteride 5 MG Tab PO SCH (08:19)
[2021-07-08] MEDS: Clopidogrel 75 MG Tab PO SCH (08:19)
[2021-07-08] MEDS: Cholecalciferol (Vitamin D3) 25 MCG Tab PO SCH (08:19)
[2021-07-08] MEDS: Cyanocobalamin (Vitamin B12) 1,000 MCG Tab PO SCH (08:19)
[2021-07-08] MEDS: Multivitamins, Therapeutic with Minerals Tab PO SCH (08:20)
[2021-07-08] MEDS: Ferrous Sulfate 325 MG Tab PO SCH (08:20)
[2021-07-08] MEDS: Aspirin 81 MG Tab.EC PO SCH (08:20)
[2021-07-08] MEDS: Metoprolol Tartrate 25 MG Tab PO SCH (08:20)
[2021-07-08] MEDS: Ascorbic Acid 500 MG Tab PO SCH (08:20)
[2021-07-08] MEDS: Nicotine 14 MG/24 Hr Patch TRDERM SCH (08:28)
== END 2021-07-08 09:40 | disposition home or self-care (01) | DRG 948 ==
LOC: UNDOADMIN 10:45 → DL.MS 10:45
PROVIDERS: ADMIT Internal Medicine; ATTEND Internal Medicine
DX: R53.1 Weakness (principal); E87.0 Hyperosmolality and hypernatremia; R29.6 Repeated falls; E87.6 Hypokalemia; N40.0 Benign prostatic hyperplasia without lower urinary tract symptoms; G47.00 Insomnia, unspecified; D64.9 Anemia, unspecified; E78.5 Hyperlipidemia, unspecified; M19.90 Unspecified osteoarthritis, unspecified site; L30.9 Dermatitis, unspecified; E80.6 Other disorders of bilirubin metabolism; J44.9 Chronic obstructive pulmonary disease, unspecified; I50.9 Heart failure, unspecified; I25.10 Atherosclerotic heart disease of native coronary artery without angina pectoris; I25.2 Old myocardial infarction; Z90.49 Acquired absence of other specified parts of digestive tract; Z98.890 Other specified postprocedural states; Z87.891 Personal history of nicotine dependence
CPT/HCPCS: 81001; 94640; 97110-GO; 97110-GP; 97162-GP; 97165-GO; 97530-GO; 97535-GO; A9270-GY; J7512; J7620-GY

== ENCOUNTER 2021-07-09 10:24 | Inpatient (IN) | payer MEDICARE, BC ==
--- NOTE | 2021-07-09 10:42 | EDM.PDOC ---
ED HPI GENERAL MEDICAL PROBLEM - General Chief Complaint: Respiratory Problem Stated Complaint: IN BY AMBULANCE Time Seen by Provider: 07/09/21 10:42 Source of Information: Reports: Patient, RN, RN Notes Reviewed History Limitations: Reports: No Limitations - History of Present Illness INITIAL COMMENTS - FREE TEXT/NARRATIVE: Isa is an 86 y/o male who presents to the ED via [facility] at the request of his home health nurse following a fall at home. The patient reports he was discharged home from swing bed at this facility yesterday for a diagnosis of frequent falls and post-pneumonia. The patient states he tripped while walking and struck his head; he is unsure if he lost consciousness but notes he "..saw stars." The patient denies any fever, shaking chills, chest pain, palpitations, shortness of breath, abdominal pain, nausea, or vomiting. He states he continues to feel weak and is unsteady on his feet. - Related Data Allergies Allergy/AdvReac Type Severity Reaction Status Date / Time No Known Allergies Allergy Verified 07/09/21 10:39 Home Meds: Home Meds Finasteride 5 mg PO DAILY 07/04/15 [History] Tamsulosin HCl 0.4 mg PO PCDINNER 07/04/15 [History] Aspirin [Adult Low Dose Aspirin EC] 81 mg PO DAILY 02/20/16 [History] Clopidogrel [Plavix] 1 tab PO DAILY 02/20/16 [History] Nitroglycerin [Nitrostat] 1 tab SL ASDIRECTED 02/20/16 [History] atorvaSTATin [Lipitor] 40 mg PO BEDTIME 02/20/16 [History] Albuterol [Ventolin HFA] 2 puff INH Q6HR PRN 09/26/17 [History] Budesonide/Formoterol [Symbicort 80-4.5 MCG] 2 puff INH BID 09/26/17 [History] traZODone HCl [Trazodone HCl] 50 mg PO BEDTIME PRN 01/30/18 [History] Ascorbic Acid [Vitamin C] 500 mg PO DAILY 30 Days #30 tablet 07/08/21 [Rx] Cholecalciferol (Vitamin D3) [Vitamin D3] 25 mcg PO DAILY 30 Days #30 tablet 07/08/21 [Rx] Cyanocobalamin (Vitamin B12) [Vitamin B12] 1,000 mcg PO DAILY 30 Days #30 tablet 07/08/21 [Rx] Ferrous Sulfate 325 mg PO BIDMEALS 30 Days #60 tablet 07/08/21 [Rx] Folic Acid 1 mg PO DAILY 30 Days #30 tablet 07/08/21 [Rx] Loperamide [Imodium] 2 mg PO Q4H PRN 30 Days #30 cap 07/08/21 [Rx] Metoprolol Tartrate [Lopressor] 12.5 mg PO BID 30 Days #60 tablet 07/08/21 [Rx] Multivitamins/Minerals [Vitamins and Minerals] 1 tab PO WITHBREAKFAST 30 Days #30 tablet 07/08/21 [Rx] lisinopriL [Lisinopril] 40 mg PO DAILY 30 Days #30 tablet 07/08/21 [Rx] predniSONE [Prednisone] 10 mg PO DAILY 1 Days #1 tablet 07/08/21 [Rx] Past Medical History Other HEENT History: 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 Other Cardiovascular History: [place] with stents placed Nov 2015 Gastrointestinal History: Reports: Cholelithiasis Genitourinary History: Reports: Prostate Disorder Musculoskeletal History: Reports: Arthritis, Fracture Other Musculoskeletal History: right hip fx Neurological History: Reports: None Other Neuro History: 2012 bumped head Psychiatric History: Reports: None Endocrine/Metabolic History: Reports: None Hematologic History: Reports: None Immunologic History: Reports: None Oncologic (Cancer) History: Reports: None Dermatologic History: Reports: Eczema Other Dermatologic History: eczema - Infectious Disease History Infectious Disease History: Reports: None - Past Surgical History HEENT Surgical History: Reports: Detached Retina Other Cardiovascular Surgeries/Procedures: angiogram 2 weeks ago Respiratory Surgical History: Reports: None GI Surgical History: Reports: Appendectomy, Cholecystectomy Male Surgical History: Reports: None Endocrine Surgical History: Reports: None Neurological Surgical History: Reports: None Musculoskeletal Surgical History: Reports: Shoulder Surgery Other Musculoskeletal Surgeries/Procedures:: rotator cuff Dermatological Surgical History: Reports: None Social & Family History - Family History Family Medical History: No Pertinent Family History - Caffeine Use Caffeine Use: Reports: Coffee - Living Situation & Occupation Living situation: Reports: with Family Occupation: Retired ED ROS GENERAL - Review of Systems Review Of Systems: Comprehensive ROS is negative, except as noted in HPI. ED EXAM, GENERAL - Physical Exam Exam: See Below Exam Limited By: No Limitations General Appearance: Alert, No Apparent Distress, Thin Eye Exam: Bilateral Eye: EOMI, Normal Inspection, PERRL (2mm) Ears: Normal External Exam, Normal Canal, Hearing Grossly Normal, Normal TMs Ear Exam: Bilateral Ear: Auricle Normal, Canal Normal, TM normal Nose: Normal Inspection, Normal Mucosa, No Blood Throat/Mouth: Normal Inspection, Normal Oropharynx, Normal Voice, No Airway Compromise Head: Atraumatic, Normocephalic. No: Facial Swelling, Facial Tenderness, Sinus Tenderness Neck: Normal Inspection, Supple, Non-Tender, Full Range of Motion, Other (C- Collar placed. C-spine fracture r/o via CT, collar removed. ). No: Lymphadenopathy (L), Lymphadenopathy (R) Respiratory/Chest: No Respiratory Distress, No Accessory Muscle Use, Chest Non- Tender, Rhonchi (To bilatera upper lobes), Wheezing (Expiratory), Other (Productive cough). No: Crackles, Rales Cardiovascular: Normal Peripheral Pulses, Regular Rate, Rhythm, No Edema, No Gallop, No JVD, No Murmur, No Rub Peripheral Pulses: 2+: Radial (L), Radial (R), Dorsalis Pedis (L), Dorsalis Pedis (R) GI/Abdominal: Normal Bowel Sounds, Soft, Non-Tender (Male) Exam: Deferred Rectal (Males) Exam: Deferred Back Exam: Normal Inspection, Decreased Range of Motion (Chronic). No: Muscle Spasm, Paraspinal Tenderness, Vertebral Tenderness Extremities: Normal Inspection, Normal Range of Motion, Normal Capillary Refill. No: Increased Warmth, Mottled, Pallor, Redness Neurological: Alert, Oriented, CN II-XII Intact, Normal Cognition, No Motor/Sen brenna Deficits Psychiatric: Normal Affect, Normal Mood Skin Exam: Warm, Dry, Intact, Normal Color, No Rash Lymphatic: No Adenopathy Course - Vital Signs Last Recorded V/S: Last Vital Signs Temp 98.3 F 07/13/21 07:51 Pulse 69 07/13/21 09:12 Resp 18 07/13/21 07:51 BP 161/69 H 07/13/21 09:12 Pulse Ox 100 07/13/21 07:51 - Orders/Labs/Meds Orders: Medication Orders Acetaminophen (Acetaminophen 325 Mg Tab) 650 mg PO Q4H PRN PRN Reason: Pain (Mild 1-3)/fever Last Admin: 07/12/21 21:19 Dose: 650 mg Documented by: Admin: 07/11/21 21:24 Dose: 650 mg Documented by: Admin: 07/10/21 22:00 Dose: 650 mg Documented by: Admin: 07/09/21 21:15 Dose: 650 mg Documented by: PRICE Albuterol (Albuterol 6.7 Gm Inhaler) 0 gm INH Q6HR PRN PRN Reason: Dyspnea Last Admin: 07/12/21 18:26 Dose: 2 puff Documented by: MARLEY Albuterol/Ipratropium (Albuterol/Ipratropium 3.0-0.5 Mg/3 Ml Neb Soln) 3 ml NEB Q4HR PRN PRN Reason: Shortness of Breath Last Admin: 07/09/21 23:35 Dose: 3 ml Documented by: PRICE Aspirin (Aspirin 81 Mg Tab.Ec) 81 mg PO DAILY [facility] Last Admin: 07/13/21 09:12 Dose: 81 mg Documented by: Admin: 07/12/21 09:06 Dose: 81 mg Documented by: Admin: 07/11/21 09:43 Dose: 81 mg Documented by: Admin: 07/10/21 08:22 Dose: 81 mg Documented by: LUIS Atorvastatin Calcium (Atorvastatin 20 Mg Tab) 40 mg PO BEDTIME [facility] Last Admin: 07/12/21 21:20 Dose: 40 mg Documented by: Admin: 07/11/21 21:25 Dose: 40 mg Documented by: Admin: 07/10/21 21:59 Dose: 40 mg Documented by: Admin: 07/09/21 21:16 Dose: 40 mg Documented by: PRICE Clopidogrel Bisulfate (Clopidogrel 75 Mg Tab) 75 mg PO DAILY [facility] Last Admin: 07/13/21 09:13 Dose: 75 mg Documented by: Admin: 07/12/21 09:03 Dose: 75 mg Documented by: Admin: 07/11/21 09:44 Dose: 75 mg Documented by: Admin: 07/10/21 08:23 Dose: 75 mg Documented by: LUIS Ferrous Sulfate (Ferrous Sulfate 325 Mg Tab) 325 mg PO BIDMEALS [facility] Last Admin: 07/13/21 09:12 Dose: 325 mg Documented by: Admin: 07/12/21 17:42 Dose: 325 mg Documented by: Admin: 07/12/21 09:06 Dose: 325 mg Documented by: Admin: 07/11/21 18:12 Dose: 325 mg Documented by: Admin: 07/11/21 09:44 Dose: 325 mg Documented by: Admin: 07/10/21 18:04 Dose: 325 mg Documented by: Admin: 07/10/21 08:23 Dose: 325 mg Documented by: Admin: 07/09/21 17:17 Dose: 325 mg Documented by: LUIS Finasteride (Finasteride 5 Mg Tab) 5 mg PO DAILY [facility] Admin: 07/13/21 09:12 Dose: 5 mg Documented by: Admin: 07/12/21 09:06 Dose: 5 mg Documented by: Admin: 07/11/21 09:44 Dose: 5 mg Documented by: Admin: 07/10/21 08:23 Dose: 5 mg Documented by: LUIS Heparin Sodium (Porcine) (Heparin Sodium 5,000 Units/Ml Vial) 5,000 units SUBCUT Q8HR [facility] Admin: 07/13/21 09:13 Dose: Not Given Documented by: Admin: 07/12/21 23:02 Dose: Not Given Documented by: Admin: 07/12/21 14:33 Dose: Not Given Documented by: Admin: 07/12/21 06:08 Dose: 5,000 units Documented by: Admin: 07/11/21 21:28 Dose: 5,000 units Documented by: Admin: 07/11/21 15:59 Dose: Not Given Documented by: Admin: 07/11/21 05:39 Dose: 5,000 units Documented by: Admin: 07/10/21 22:03 Dose: 5,000 units Documented by: Admin: 07/10/21 14:45 Dose: 5,000 units Documented by: Admin: 07/10/21 06:17 Dose: 5,000 units Documented by: Admin: 07/09/21 21:19 Dose: 5,000 units Documented by: PRICE Loperamide HCl (Loperamide 2 Mg Cap) 2 mg PO Q4H PRN PRN Reason: Diarrhea Lorazepam (Lorazepam 2 Mg/Ml Sdv) 1 mg IVPUSH Q4H PRN PRN Reason: Agitation Metoprolol Tartrate (Metoprolol Tartrate 25 Mg Tab) 12.5 mg PO BID [facility] Admin: 07/13/21 09:12 Dose: 12.5 mg Documented by: Admin: 07/12/21 21:20 Dose: 12.5 mg Documented by: Admin: 07/12/21 09:03 Dose: 12.5 mg Documented by: Admin: 07/11/21 21:26 Dose: 12.5 mg Documented by: Admin: 07/11/21 09:54 Dose: Not Given Documented by: Admin: 07/10/21 21:59 Dose: 12.5 mg Documented by: Admin: 07/10/21 08:23 Dose: 12.5 mg Documented by: Admin: 07/09/21 21:16 Dose: 12.5 mg Documented by: PRICE Miscellaneous Information (Check Nicotine Patch) 1 ea TRDERM BEDTIME [facility] Admin: 07/12/21 21:30 Dose: 1 ea Documented by: Admin: 07/11/21 21:29 Dose: 1 ea Documented by: Admin: 07/10/21 22:03 Dose: 1 ea Documented by: Admin: 07/09/21 21:18 Dose: 1 ea Documented by: PRICE Mometasone Furoate/Formoterol Fumar (Formoterol/Mometasone 100-5 Mcg 8.8 Gm Inhaler) 2 puff IH BID [facility] Admin: 07/12/21 21:35 Dose: 2 puff Documented by: Admin: 07/12/21 09:13 Dose: 2 puff Documented by: Admin: 07/11/21 21:32 Dose: 2 puff Documented by: Admin: 07/11/21 09:53 Dose: 2 puff Documented by: Admin: 07/10/21 22:02 Dose: 2 puff Documented by: Admin: 07/10/21 08:30 Dose: 2 puff Documented by: Admin: 07/09/21 21:22 Dose: 2 puff Documented by: PRICE Multivitamins/Minerals (Multivitamins, Therapeutic With Minerals Tab) 1 [place] Admin: 07/13/21 09:12 Dose: 1 tab Documented by: Admin: 07/12/21 09:01 Dose: 1 tab Documented by: Admin: 07/11/21 09:44 Dose: 1 tab Documented by: Admin: 07/10/21 08:22 Dose: 1 tab Documented by: LUIS Nicotine (Nicotine 14 Mg/24 Hr Patch) 14 mg TRDERM DAILY [facility] Last Admin: 07/13/21 09:11 Dose: 14 mg Documented by: Admin: 07/12/21 09:07 Dose: 14 mg Documented by: Admin: 07/11/21 09:52 Dose: 14 mg Documented by: Admin: 07/10/21 08:26 Dose: 14 mg Documented by: Admin: 07/09/21 16:26 Dose: Not Given Documented by: LUIS Nitroglycerin (Nitroglycerin 0.4 Mg Tab.Sl) 0.4 mg SL ASDIRECTED [facility] Prednisone (Prednisone 10 Mg Tab) 30 mg PO WITHBREAKFAST [facility] Last Admin: 07/13/21 09:12 Dose: 30 mg Documented by: Admin: 07/12/21 09:02 Dose: 30 mg Documented by: MARLEY Tamsulosin HCl (Tamsulosin 0.4 Mg Cap.Er) 0.4 mg PO PCDINNER [facility] Last Admin: 07/12/21 17:42 Dose: 0.4 mg Documented by: Admin: 07/11/21 18:12 Dose: 0.4 mg Documented by: Admin: 07/10/21 18:05 Dose: 0.4 mg Documented by: Admin: 07/09/21 17:35 Dose: Not Given Documented by: Admin: 07/09/21 17:20 Dose: 0.4 mg Documented by: LUIS Trazodone HCl (Trazodone 50 Mg Tab) 50 mg PO BEDTIME [facility] Last Admin: 07/12/21 21:20 Dose: 50 mg Documented by: Admin: 07/11/21 21:26 Dose: 50 mg Documented by: [email or web address] Admin: 07/11/21 00:59 Dose: 50 mg Documented by: [email or web address] Labs: Laboratory Tests 07/09/21 07/09/21 07/09/21 Range/Units 10:58 11:30 11:30 WBC 20.7 H (5.0-10.0) 10^3/uL RBC 3.59 L (4.6-6.2) 10^6/uL Hgb 11.8 L (14.0-18.0) g/dL Hct 36.1 L (40.0-54.0) % MCV 100.6 H (80-100) fL MCH 32.9 (27.0-34.0) pg MCHC 32.7 L (33.0-35.0) g/dL Plt Count 287 (150-450) 10^3/uL Neut % (Auto) 90.4 H (42.2-75.2) % Lymph % (Auto) 2.7 L (20.5-50.1) % Wheeler % (Auto) 6.8 (2-8) % Eos % (Auto) 0.0 L (1.0-3.0) % Baso % (Auto) 0.1 (0.0-1.0) % Sodium 142 (136-145) mmol/L Potassium 4.5 (3.5-5.1) mmol/L Chloride 104 (98-107) mmol/L Carbon Dioxide 28 (21-32) mmol/L Anion Gap 14.5 H (7-13) mEq/L BUN 35 H (7-18) mg/dL Creatinine 1.81 H (0.70-1.30) mg/dL Est Cr Clr Drug Dosing 25.60 mL/min Estimated GFR (MDRD) 36 BUN/Creatinine Ratio 19.3 (No establ ref range) Glucose 124 H (70-99) mg/dL Calcium 8.1 L (8.5-10.1) mg/dL Magnesium 2.2 (1.8-2.4) mg/dL Total Bilirubin 0.9 (0.2-1.0) mg/dL AST 18 (15-37) U/L ALT 26 (16-63) U/L Alkaline Phosphatase 95 (46-116) U/L Creatine Kinase (39-308) U/L C-Reactive Protein 5.9 H (0.0-0.9) mg/dL Total Protein 5.6 L (6.4-8.2) g/dL Albumin 2.7 L (3.4-5.0) g/dL Globulin 2.9 Albumin/Globulin Ratio 0.93 Urine Color Yellow (YELLOW) Urine Appearance Clear (CLEAR) Urine pH 5.5 (5.0-9.0) Ur Specific [place] 1.020 (1.005-1.030) Urine Protein Negative (NEGATIVE) Urine Glucose (UA) Negative (NEGATIVE) Urine Ketones Negative (NEGATIVE) Urine Occult Blood Trace-intact H (NEGATIVE) Urine Nitrite Negative (NEGATIVE) Urine Bilirubin Negative (NEGATIVE) Urine Urobilinogen 0.2 (0.2-1.0) mg/dL Ur Leukocyte Esterase Trace H (NEGATIVE) Urine RBC 5-10 H (0-5) /HPF Urine WBC 5-10 H (0-5/HPF) /HPF Ur Epithelial Cells Rare (NOT SEEN) /HPF Amorphous Sediment Rare (NOT SEEN) /HPF Urine Bacteria Occasional (0-FEW/HPF) /HPF Urine Mucus Rare (NOT SEEN) /LPF Ethyl Alcohol < 3 (0) mg/dL 07/09/21 Range/Units 11:37 WBC (5.0-10.0) 10^3/uL RBC (4.6-6.2) 10^6/uL Hgb (14.0-18.0) g/dL Hct (40.0-54.0) % MCV (80-100) fL MCH (27.0-34.0) pg MCHC (33.0-35.0) g/dL Plt Count (150-450) 10^3/uL Neut % (Auto) (42.2-75.2) % Lymph % (Auto) (20.5-50.1) % Wheeler % (Auto) (2-8) % Eos % (Auto) (1.0-3.0) % Baso % (Auto) (0.0-1.0) % Sodium (136-145) mmol/L Potassium (3.5-5.1) mmol/L Chloride (98-107) mmol/L Carbon Dioxide (21-32) mmol/L Anion Gap (7-13) mEq/L BUN (7-18) mg/dL Creatinine (0.70-1.30) mg/dL Est Cr Clr Drug Dosing mL/min Estimated GFR (MDRD) BUN/Creatinine Ratio (No establ ref range) Glucose (70-99) mg/dL Calcium (8.5-10.1) mg/dL Magnesium (1.8-2.4) mg/dL Total Bilirubin (0.2-1.0) mg/dL AST (15-37) U/L ALT (16-63) U/L Alkaline Phosphatase (46-116) U/L Creatine Kinase 54 (39-308) U/L C-Reactive Protein (0.0-0.9) mg/dL Total Protein (6.4-8.2) g/dL Albumin (3.4-5.0) g/dL Globulin Albumin/Globulin Ratio Urine Color (YELLOW) Urine Appearance (CLEAR) Urine pH (5.0-9.0) Ur Specific [place] (1.005-1.030) Urine Protein (NEGATIVE) Urine Glucose (UA) (NEGATIVE) Urine Ketones (NEGATIVE) Urine Occult Blood (NEGATIVE) Urine Nitrite (NEGATIVE) Urine Bilirubin (NEGATIVE) Urine Urobilinogen (0.2-1.0) mg/dL Ur Leukocyte Esterase (NEGATIVE) Urine RBC (0-5) /HPF Urine WBC (0-5/HPF) /HPF Ur Epithelial Cells (NOT SEEN) /HPF Amorphous Sediment (NOT SEEN) /HPF Urine Bacteria (0-FEW/HPF) /HPF Urine Mucus (NOT SEEN) /LPF Ethyl Alcohol (0) mg/dL Meds: Medications Generic Name Dose Route Start Last Admin Trade Name Freq PRN Reason Stop Dose Admin Acetaminophen 650 mg 07/09/21 14:02 07/12/21 21:19 Acetaminophen 325 Mg Tab PO 650 mg Q4H PRN Administration Pain (Mild 1-3)/fever Albuterol 0 gm 07/09/21 13:50 07/12/21 18:26 Albuterol 6.7 Gm Inhaler INH 2 puff Q6HR PRN Administration Dyspnea Albuterol/Ipratropium 3 ml 07/09/21 17:00 07/09/21 23:35 Albuterol/Ipratropium 3.0-0.5 Mg/3 Ml Neb Soln NEB 3 ml Q4HR PRN Administration Shortness of Breath Aspirin 81 mg 07/10/21 09:00 07/13/21 09:12 Aspirin 81 Mg Tab.Ec PO 81 mg DAILY MARIE Administration Atorvastatin Calcium 40 mg 07/09/21 21:00 07/12/21 21:20 Atorvastatin 20 Mg Tab PO 40 mg BEDTIME MARIE Administration Clopidogrel Bisulfate 75 mg 07/10/21 09:00 07/13/21 09:13 Clopidogrel 75 Mg Tab PO 75 mg DAILY [facility] Administration Ferrous Sulfate 325 mg 07/09/21 18:00 07/13/21 09:12 Ferrous Sulfate 325 Mg Tab PO 325 mg BIDMEALS MARIE Administration Finasteride 5 mg 07/10/21 09:00 07/13/21 09:12 Finasteride 5 Mg Tab PO 5 mg DAILY [facility] Administration Heparin Sodium (Porcine) 5,000 units 07/09/21 22:00 07/13/21 09:13 Heparin Sodium 5,000 Units/Ml Vial SUBCUT Not Given Q8HR MARIE Loperamide HCl 2 mg 07/09/21 13:50 Loperamide 2 Mg Cap PO Q4H PRN Diarrhea Lorazepam 1 mg 07/09/21 23:48 Lorazepam 2 Mg/Ml Sdv IVPUSH Q4H PRN Agitation Metoprolol Tartrate 12.5 mg 07/09/21 21:00 07/13/21 09:12 Metoprolol Tartrate 25 Mg Tab PO 12.5 mg BID [facility]IE Administration Miscellaneous Information 1 ea 07/09/21 21:00 07/12/21 21:30 Check Nicotine Patch TRDERM 1 ea BEDTIME [facility]IE Administration Mometasone Furoate/Formoterol Fumar 2 puff 07/09/21 21:00 07/12/21 21:35 Formoterol/Mometasone 100-5 Mcg 8.8 Gm Inhaler IH 2 puff BID [facility]IE Administration Multivitamins/Minerals 1 tab 07/10/21 08:00 07/13/21 09:12 Multivitamins, Therapeutic With Minerals Tab PO 1 tab WITHBREAKFAST MARIE Administration Nicotine 14 mg 07/09/21 15:00 07/13/21 09:11 Nicotine 14 Mg/24 Hr Patch TRDERM 14 mg DAILY [facility] Administration Nitroglycerin 0.4 mg 07/09/21 14:00 Nitroglycerin 0.4 Mg Tab.Sl SL ASDIRECTED MARIE Prednisone 30 mg 07/12/21 08:00 07/13/21 09:12 Prednisone 10 Mg Tab PO 30 mg WITHBREAKFAST MARIE Administration Tamsulosin HCl 0.4 mg 07/09/21 18:30 07/12/21 17:42 Tamsulosin 0.4 Mg Cap.Er PO 0.4 mg PCDINNER [facility]IE Administration Trazodone HCl 50 mg 07/11/21 00:30 07/12/21 21:20 Trazodone 50 Mg Tab PO 50 mg BEDTIME [facility] Administration Discontinued Medications Generic Name Dose Route Start Last Admin Trade Name Freq PRN Reason Stop Dose Admin Albuterol/Ipratropium 3 ml 07/09/21 12:45 07/09/21 13:02 Albuterol/Ipratropium 3.0-0.5 Mg/3 Ml Neb Soln NEB 3 ml Q4H PRN Administration Shortness of Breath Albuterol/Ipratropium 3 ml 07/09/21 14:48 Albuterol/Ipratropium 3.0-0.5 Mg/3 Ml Neb Soln NEB Q4H PRN Shortness of Breath Azithromycin 500 mg/ Sodium 250 mls @ 250 mls/hr 07/09/21 12:44 07/09/21 13:43 Chloride IV 07/09/21 13:43 250 mls/hr ONETIME ONE Administration Ceftriaxone Sodium 1 gm/ 50 mls @ 100 mls/hr 07/09/21 12:45 07/09/21 13:13 Sodium Chloride IV 07/09/21 13:14 100 mls/hr ONETIME ONE Administration Potassium Chloride/Sodium Chloride 1,000 mls @ 75 mls/hr 07/09/21 16:45 07/09/21 17:52 Normal Saline With 20 Meq Kcl IV 75 mls/hr ASDIRECTED MARIE Administration Lisinopril 40 mg 07/10/21 09:00 Lisinopril 20 Mg Tab PO DAILY [facility] Prednisone 50 mg 07/09/21 14:00 07/09/21 14:38 Prednisone 10 Mg Tab PO 50 mg WITHBREAKFAST MARIE Administration Prednisone 40 mg 07/10/21 08:00 07/11/21 09:43 Prednisone 10 Mg Tab PO 40 mg WITHBREAKFAST MARIE Administration Trazodone HCl 50 mg 07/09/21 23:46 07/09/21 23:56 Trazodone 50 Mg Tab PO 07/09/21 23:47 50 mg ONETIME ONE Administration - Radiology Interpretation Free Text/Narrative:: [facility] Final Radiology Report Call: [phone] assistance Online chat: [email or web address] Name: ISA BHAT Age: 86Years M Date: 07/09/2021 SSN: -- : [id number] Study: CT CERVICAL SPINE WO CONT Requesting Physician: Olga Lion Images: [id number] Addl Studies: Provided Clinical History: Fall at home; Unknown loss of consciousness Contrast: Without Contrast Medium: Contrast Amount: Contrast Method: Page 1 of 2 PROCEDURE INFORMATION: Exam: CT Cervical Spine Without Contrast Exam date and time: 07/09/2021 11:14 AM Age: 86 years old Clinical indication: Injury or trauma; Fall; Blunt trauma; Additional info: Fall at home; Unknown loss of consciousness TECHNIQUE: Imaging protocol: Computed tomography images of the cervical spine without contrast. Radiation optimization: All CT scans at this facility use at least one of these dose optimization techniques: automated exposure control; mA and/or kV adjustment per patient size (includes targeted exams where dose is matched to clinical indication); or iterative reconstruction. COMPARISON: CT Cervical Spine wo Cont 06/28/2021 1:21 PM FINDINGS: Bones/joints: Exaggeration of the cervical lordosis. Slight grade 1 degenerative anterolisthesis of C2 on C3, C4 on C5 and C7 on T1. Slight degenerative retrolisthesis of C3 on C4. Alignment is unchanged compared to prior. No acute fracture seen. Discs/Spinal canal/Neural foramina: Moderate degenerative changes at C1-C2. Disc height loss and spondylosis with uncovertebral arthropathy from C3-C4 through C5-C6. No lara re central spinal canal stenosis. There are high-grade neural foraminal stenoses due to uncovertebral and facet arthropathy. Orbits: The visualized right orbit demonstrates prior scleral banding. Lungs: Lung apices are normal. Vasculature: Moderate proximal bilateral carotid atherosclerosis. Soft tissues: Unremarkable. IMPRESSION: No cervical spine fracture seen. Thank you for allowing us to participate in the care of your patient. Dictated and Authenticated by: Sanam Beckham MD 07/09/2021 11:36 AM Central Time ([place] & [place]) [facility] Final Radiology Report Call: [phone] assistance Online chat: [email or web address] Name: ISA BHAT Age: 86Years M Date: 07/09/2021 SSN: -- : [id number] Study: CT HEAD WO CONT Requesting Physician: Olga Lion Images: [id number] Addl Studies: Provided Clinical History: Fall at home; Unknown loss of consciousness Contrast: Without Contrast Medium: Contrast Amount: Contrast Method: Page 1 of 2 PROCEDURE INFORMATION: Exam: CT Head Without Contrast Exam date and time: 07/09/2021 11:14 AM Age: 86 years old Clinical indication: Injury or trauma; Fall; Blunt trauma (contusions or hematomas); Consciousness not specified; Additional info: Fall at home; Unknown loss of consciousness TECHNIQUE: Imaging protocol: Computed tomography of the head without contrast. Radiation optimization: All CT scans at this facility use at least one of these dose optimization techniques: automated exposure control; mA and/or kV adjustment per patient size (includes targeted exams where dose is matched to clinical indication); or iterative reconstruction. COMPARISON: CT Head wo Cont 06/28/2021 1:21 PM FINDINGS: Brain: The brain demonstrates diffuse volume loss. There is white matter hypodensity most consistent with chronic small vessel ischemic change. No visible evolving territorial infarct. No hemorrhage. A focal, chronic appearing left cerebellar infarct. A chronic appearing lacunar infarct in the right larkin radiata. These are unchanged. Cerebral ventricles: The ventricles are enlarged in keeping with volume loss. Paranasal sinuses: Visualized sinuses are unremarkable. No fluid levels. Mastoid air cells: Visualized mastoid air cells are well aerated. Orbital cavity: Thinning of the lenses of the globes consistent with prior lens surgery. Prior right scleral banding. Posterior right globe calcification may be retinal. This is near the optic disc. Findings are stable. Bones/joints: Unremarkable. No acute fracture. Soft tissues: Unremarkable. IMPRESSION: No acute intracranial abnormality seen. Thank you for allowing us to participate in the care of your patient. Dictated and Authenticated by: Sanam Beckham MD 07/09/2021 11:42 AM Central Time ([place]) [facility] Final Radiology Report Call: [phone] assistance Online chat: [email or web address] Name: ISA BHAT Age: 86Years M Date: 07/09/2021 SSN: -- : [id number] Study: CR CHEST 1V FRONTAL Requesting Physician: Olga Lion Images: 1 Addl Studies: Provided Clinical History: Rhonchi; WBC 20 Contrast: Contrast Medium: Contrast Amount: Contrast Method: CONFIDENTIALITY STATEMENT This report is intended only for use by the referring physician, and only in accordance with law. If you received this in error, call [phone]. Page 1 of 1 PROCEDURE INFORMATION: Exam: XR Chest Exam date and time: 07/09/2021 12:08 PM Age: 86 years old Clinical indication: Other: Rhonchi; Additional info: Rhonchi; Wbc 20 TECHNIQUE: Imaging protocol: XR of the chest. Views: 1 view. COMPARISON: CR Chest 1V Frontal 06/28/2021 2:46 PM FINDINGS: Lungs: Persistent right lung base opacity consistent with pneumonia. Improved aeration of the left lung base. Pleural spaces: Unremarkable. No pleural effusion. No pneumothorax. Heart/Mediastinum: Stable. No cardiomegaly. Bones/joints: Prior right rotator cuff surgery. Elevation of the humeral head consistent with rotator cuff pathology bilaterally. [id number] degenerative changes of the acromioclavicular joints. No acute fracture seen. IMPRESSION: Persistent right lower lobe pneumonia. Thank you for allowing us to participate in the care of your patient. Dictated and Authenticated by: Sanam Beckham MD 07/09/2021 12:18 PM Central Time ([place] & [place]) - Re-Assessments/Exams Free Text/Narrative Re-Assessment/Exam: 07/09/21 CT head head and c-spine obtained given new fall since discharge. Discussed possible need for increased level of care given frequent falls at home, patient states he is agreeable to fpc. C-collar removed following CT confirmation of no acute c-spine fracture. Head CT unremarkable for acute processes. CXR revealed persistent pneumonia with WBC 20. Rocephin 1gm IVPB initiated. Azithromycin 500mg IVPB initiated. Case discussed with Dr. Mcmahon who kindly accepted patient for inpatient admission. Findings of examination, lab work, imaging and discussion with Dr. Mcmahon reviewed with patient and son. Patient and son verbalized understanding and agreement with the plan of care. Departure - Departure Time of Disposition: 13:00 Disposition: Admitted As Inpatient 65 Clinical Impression: Frequent falls, Fall from ground level Head injury Qualifiers: Encounter type: initial encounter Qualified Code(s): S09.90XA - Unspecified injury of head, initial encounter Acute kidney failure Qualifiers: Acute renal failure type: unspecified Qualified Code(s): N17.9 - Acute kidney failure, unspecified Pneumonia Qualifiers: Pneumonia type: due to unspecified organism Laterality: right Lung location: middle lobe of lung Qualified Code(s): J18.9 - Pneumonia, unspecified organism - Discharge Information Sepsis Event Note (ED) - Evaluation Sepsis Screening Result: No Definite Risk
--- NOTE | 2021-07-09 11:37 | CT ---
PROCEDURE INFORMATION: Exam: CT Cervical Spine Without Contrast Exam date and time: 07/09/2021 11:14 AM Age: 86 years old Clinical indication: Injury or trauma; Fall; Blunt trauma; Additional info: Fall at home; Unknown loss of consciousness TECHNIQUE: Imaging protocol: Computed tomography images of the cervical spine without contrast. Radiation optimization: All CT scans at this facility use at least one of these dose optimization techniques: automated exposure control; mA and/or kV adjustment per patient size (includes targeted exams where dose is matched to clinical indication); or iterative reconstruction. COMPARISON: CT Cervical Spine wo Cont 06/28/2021 1:21 PM FINDINGS: Bones/joints: Exaggeration of the cervical lordosis. Slight grade 1 degenerative anterolisthesis of C2 on C3, C4 on C5 and C7 on T1. Slight degenerative retrolisthesis of C3 on C4. Alignment is unchanged compared to prior. No acute fracture seen. Discs/Spinal canal/Neural foramina: Moderate degenerative changes at C1-C2. Disc height loss and spondylosis with uncovertebral arthropathy from C3-C4 through C5-C6. No severe central spinal canal stenosis. There are high-grade neural foraminal stenoses due to uncovertebral and facet arthropathy. Orbits: The visualized right orbit demonstrates prior scleral banding. Lungs: Lung apices are normal. Vasculature: Moderate proximal bilateral carotid atherosclerosis. Soft tissues: Unremarkable. IMPRESSION: No cervical spine fracture seen.
--- NOTE | 2021-07-09 11:42 | CT ---
PROCEDURE INFORMATION: Exam: CT Head Without Contrast Exam date and time: 07/09/2021 11:14 AM Age: 86 years old Clinical indication: Injury or trauma; Fall; Blunt trauma (contusions or hematomas); Consciousness not specified; Additional info: Fall at home; Unknown loss of consciousness TECHNIQUE: Imaging protocol: Computed tomography of the head without contrast. Radiation optimization: All CT scans at this facility use at least one of these dose optimization techniques: automated exposure control; mA and/or kV adjustment per patient size (includes targeted exams where dose is matched to clinical indication); or iterative reconstruction. COMPARISON: CT Head wo Cont 06/28/2021 1:21 PM FINDINGS: Brain: The brain demonstrates diffuse volume loss. There is white matter hypodensity most consistent with chronic small vessel ischemic change. No visible evolving territorial infarct. No hemorrhage. A focal, chronic appearing left cerebellar infarct. A chronic appearing lacunar infarct in the right larkin radiata. These are unchanged. Cerebral ventricles: The ventricles are enlarged in keeping with volume loss. Paranasal sinuses: Visualized sinuses are unremarkable. No fluid levels. Mastoid air cells: Visualized mastoid air cells are well aerated. Orbital cavity: Thinning of the lenses of the globes consistent with prior lens surgery. Prior right scleral banding. Posterior right globe calcification may be retinal. This is near the optic disc. Findings are stable. Bones/joints: Unremarkable. No acute fracture. Soft tissues: Unremarkable. IMPRESSION: No acute intracranial abnormality seen.
[2021-07-09 12:05] LABS: ANION GAP 14.5 mEq/L (7-13); CHLORIDE,CL 104 mmol/L (98-107); SODIUM,NA 142 mmol/L (136-145)
--- NOTE | 2021-07-09 12:18 | CR ---
PROCEDURE INFORMATION: Exam: XR Chest Exam date and time: 07/09/2021 12:08 PM Age: 86 years old Clinical indication: Other: Rhonchi; Additional info: Rhonchi; Wbc 20 TECHNIQUE: Imaging protocol: XR of the chest. Views: 1 view. COMPARISON: CR Chest 1V Frontal 06/28/2021 2:46 PM FINDINGS: Lungs: Persistent right lung base opacity consistent with pneumonia. Improved aeration of the left lung base. Pleural spaces: Unremarkable. No pleural effusion. No pneumothorax. Heart/Mediastinum: Stable. No cardiomegaly. Bones/joints: Prior right rotator cuff surgery. Elevation of the humeral head consistent with rotator cuff pathology bilaterally. [id number] degenerative changes of the acromioclavicular joints. No acute fracture seen. IMPRESSION: Persistent right lower lobe pneumonia.
[2021-07-09] MEDS ORDERED: Azithromycin 500 MG in Sodium Chloride 0.9% 250 ML IV ONE (12:44)
[2021-07-09] MEDS ORDERED: Albuterol/Ipratropium 3.0-0.5 MG/3 ML Neb Soln NEB PRN ×3 (12:45→17:00)
[2021-07-09] MEDS ORDERED: cefTRIAXone 1 GM in Sodium Chloride 0.9% 50 ML IV ONE (12:45)
[2021-07-09] MEDS ORDERED: Loperamide 2 MG Cap PO PRN (13:50)
[2021-07-09] MEDS ORDERED: Albuterol 6.7 GM Inhaler INH PRN (13:50)
[2021-07-09] MEDS ORDERED: Nitroglycerin 0.4 MG Tab.SL SL SCH (14:00)
[2021-07-09] MEDS ORDERED: predniSONE 10 MG Tab PO SCH (14:00)
--- NOTE | 2021-07-09 16:25 | PCM.HP ---
H&P History of Present Illness - General Date of Service: 07/09/21 Admit Problem/Dx: Admission Diagnosis/Problem Admission Diagnosis/Problem GUSTAVO Source of Information: EMS Notes Reviewed, Family, Provider History Limitations: Reports: Other (sleepy) - History of Present Illness Initial Comments - Free Text/Narative: 86 yo w h/o CAD, htn, BPH, copd, anemia presented after a fall. recently hospitalizd and treated for falls, weakness, pneumonia treated with Doxycycline discharged to swing bed for pt/ot/rehab. discharged home with home care pt was noted not to do well at home shortly after dscharge. Had a fall with no LOC but did hit his head no further fever but jackson c/o cough, sob was c/o suprapubic dyscomfort - Related Data Allergies/Adverse Reactions: Allergies Allergy/AdvReac Type Severity Reaction Status Date / Time No Known Allergies Allergy Verified 07/09/21 10:39 Home Medications: Home Meds Finasteride 5 mg PO DAILY 07/04/15 [History] Tamsulosin HCl 0.4 mg PO PCDINNER 07/04/15 [History] Aspirin [Adult Low Dose Aspirin EC] 81 mg PO DAILY 02/20/16 [History] Clopidogrel [Plavix] 1 tab PO DAILY 02/20/16 [History] Nitroglycerin [Nitrostat] 1 tab SL ASDIRECTED 02/20/16 [History] atorvaSTATin [Lipitor] 40 mg PO BEDTIME 02/20/16 [History] Albuterol [Ventolin HFA] 2 puff INH Q6HR PRN 09/26/17 [History] Budesonide/Formoterol [Symbicort 80-4.5 MCG] 2 puff INH BID 09/26/17 [History] traZODone HCl [Trazodone HCl] 50 mg PO BEDTIME PRN 01/30/18 [History] Ascorbic Acid [Vitamin C] 500 mg PO DAILY 30 Days #30 tablet 07/08/21 [Rx] Cholecalciferol (Vitamin D3) [Vitamin D3] 25 mcg PO DAILY 30 Days #30 tablet 07/08/21 [Rx] Cyanocobalamin (Vitamin B12) [Vitamin B12] 1,000 mcg PO DAILY 30 Days #30 tablet 07/08/21 [Rx] Ferrous Sulfate 325 mg PO BIDMEALS 30 Days #60 tablet 07/08/21 [Rx] Folic Acid 1 mg PO DAILY 30 Days #30 tablet 07/08/21 [Rx] Loperamide [Imodium] 2 mg PO Q4H PRN 30 Days #30 cap 07/08/21 [Rx] Metoprolol Tartrate [Lopressor] 12.5 mg PO BID 30 Days #60 tablet 07/08/21 [Rx] Multivitamins/Minerals [Vitamins and Minerals] 1 tab PO WITHBREAKFAST 30 Days #30 tablet 07/08/21 [Rx] lisinopriL [Lisinopril] 40 mg PO DAILY 30 Days #30 tablet 07/08/21 [Rx] predniSONE [Prednisone] 10 mg PO DAILY 1 Days #1 tablet 07/08/21 [Rx] Past Medical History Other HEENT History: 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 Other Cardiovascular History: [place] with stents placed Nov 2015 Gastrointestinal History: Reports: Cholelithiasis Genitourinary History: Reports: Prostate Disorder Musculoskeletal History: Reports: Arthritis, Fracture Other Musculoskeletal History: right hip fx Neurological History: Reports: None Other Neuro History: 2012 bumped head Psychiatric History: Reports: None Endocrine/Metabolic History: Reports: None Hematologic History: Reports: None Immunologic History: Reports: None Oncologic (Cancer) History: Reports: None Dermatologic History: Reports: Eczema Other Dermatologic History: eczema - Infectious Disease History Infectious Disease History: Reports: None - Past Surgical History HEENT Surgical History: Reports: Detached Retina Other Cardiovascular Surgeries/Procedures: angiogram 2 weeks ago Respiratory Surgical History: Reports: None GI Surgical History: Reports: Appendectomy, Cholecystectomy Male Surgical History: Reports: None Endocrine Surgical History: Reports: None Neurological Surgical History: Reports: None Musculoskeletal Surgical History: Reports: Shoulder Surgery Other Musculoskeletal Surgeries/Procedures:: rotator cuff Dermatological Surgical History: Reports: None Social & Family History - Family History Family Medical History: No Pertinent Family History - Tobacco Use Tobacco Use Status *Q: Former Tobacco User Used Tobacco, but Quit: Yes Month/Year Tobacco Last Used: 1999 - Caffeine Use Caffeine Use: Reports: Coffee - Recreational Drug Use Recreational Drug Use: No - Living Situation & Occupation Living situation: Reports: with Family Occupation: Retired H&P Review of Systems - Review of Systems: Review Of Systems: See Below General: Reports: Chills, Weakness, Fatigue. Denies: Fever Pulmonary: Reports: Shortness of Breath, Wheezing Cardiovascular: Denies: Chest Pain, Edema Gastrointestinal: Denies: Nausea Psychiatric: Denies: Confusion Neurological: Reports: Dizziness Exam - Exam Exam: See Below - Vital Signs Vital Signs: Last Vital Signs Temp 98.6 F 07/09/21 13:13 Pulse 73 07/09/21 13:13 Resp 22 H 07/09/21 13:13 BP 137/48 L 07/09/21 13:13 Pulse Ox 93 L 07/09/21 13:13 Weight: 129 lb 3.2 oz - Exam Quality Assessment: No: Supplemental Oxygen General: Alert, Oriented (earlier, now sleepy) Neck: Supple Lungs: Decreased Breath Sounds. No: Wheezing Cardiovascular: Regular Rate, Regular Rhythm GI/Abdominal Exam: Normal Bowel Sounds, Soft, Non-Tender Extremities: No Pedal Edema - Patient Data Lab Results Last 24 hrs: Laboratory Results - last 24 hr 07/09/21 07/09/21 07/09/21 Range/Units 10:58 11:30 11:30 WBC 20.7 H (5.0-10.0) 10^3/uL RBC 3.59 L (4.6-6.2) 10^6/uL Hgb 11.8 L (14.0-18.0) g/dL Hct 36.1 L (40.0-54.0) % MCV 100.6 H (80-100) fL MCH 32.9 (27.0-34.0) pg MCHC 32.7 L (33.0-35.0) g/dL Plt Count 287 (150-450) 10^3/uL Neut % (Auto) 90.4 H (42.2-75.2) % Lymph % (Auto) 2.7 L (20.5-50.1) % Hunt % (Auto) 6.8 (2-8) % Eos % (Auto) 0.0 L (1.0-3.0) % Baso % (Auto) 0.1 (0.0-1.0) % Sodium 142 (136-145) mmol/L Potassium 4.5 (3.5-5.1) mmol/L Chloride 104 (98-107) mmol/L Carbon Dioxide 28 (21-32) mmol/L Anion Gap 14.5 H (7-13) mEq/L BUN 35 H (7-18) mg/dL Creatinine 1.81 H (0.70-1.30) mg/dL Est Cr Clr Drug Dosing 25.60 mL/min Estimated GFR (MDRD) 36 BUN/Creatinine Ratio 19.3 (No establ ref range) Glucose 124 H (70-99) mg/dL Calcium 8.1 L (8.5-10.1) mg/dL Magnesium 2.2 (1.8-2.4) mg/dL Total Bilirubin 0.9 (0.2-1.0) mg/dL AST 18 (15-37) U/L ALT 26 (16-63) U/L Alkaline Phosphatase 95 (46-116) U/L Creatine Kinase (39-308) U/L C-Reactive Protein 5.9 H (0.0-0.9) mg/dL Total Protein 5.6 L (6.4-8.2) g/dL Albumin 2.7 L (3.4-5.0) g/dL Globulin 2.9 Albumin/Globulin Ratio 0.93 Urine Color Yellow (YELLOW) Urine Appearance Clear (CLEAR) Urine pH 5.5 (5.0-9.0) Ur Specific Kingsley 1.020 (1.005-1.030) Urine Protein Negative (NEGATIVE) Urine Glucose (UA) Negative (NEGATIVE) Urine Ketones Negative (NEGATIVE) Urine Occult Blood Trace-intact H (NEGATIVE) Urine Nitrite Negative (NEGATIVE) Urine Bilirubin Negative (NEGATIVE) Urine Urobilinogen 0.2 (0.2-1.0) mg/dL Ur Leukocyte Esterase Trace H (NEGATIVE) Urine RBC 5-10 H (0-5) /HPF Urine WBC 5-10 H (0-5/HPF) /HPF Ur Epithelial Cells Rare (NOT SEEN) /HPF Amorphous Sediment Rare (NOT SEEN) /HPF Urine Bacteria Occasional (0-FEW/HPF) /HPF Urine Mucus Rare (NOT SEEN) /LPF Ethyl Alcohol < 3 (0) mg/dL SARS CoV-2 RNA Rapid TARUN (NEGATIVE) 07/09/21 07/09/21 Range/Units 11:37 12:46 WBC (5.0-10.0) 10^3/uL RBC (4.6-6.2) 10^6/uL Hgb (14.0-18.0) g/dL Hct (40.0-54.0) % MCV (80-100) fL MCH (27.0-34.0) pg MCHC (33.0-35.0) g/dL Plt Count (150-450) 10^3/uL Neut % (Auto) (42.2-75.2) % Lymph % (Auto) (20.5-50.1) % Hunt % (Auto) (2-8) % Eos % (Auto) (1.0-3.0) % Baso % (Auto) (0.0-1.0) % Sodium (136-145) mmol/L Potassium (3.5-5.1) mmol/L Chloride (98-107) mmol/L Carbon Dioxide (21-32) mmol/L Anion Gap (7-13) mEq/L BUN (7-18) mg/dL Creatinine (0.70-1.30) mg/dL Est Cr Clr Drug Dosing mL/min Estimated GFR (MDRD) BUN/Creatinine Ratio (No establ ref range) Glucose (70-99) mg/dL Calcium (8.5-10.1) mg/dL Magnesium (1.8-2.4) mg/dL Total Bilirubin (0.2-1.0) mg/dL AST (15-37) U/L ALT (16-63) U/L Alkaline Phosphatase (46-116) U/L Creatine Kinase 54 (39-308) U/L C-Reactive Protein (0.0-0.9) mg/dL Total Protein (6.4-8.2) g/dL Albumin (3.4-5.0) g/dL Globulin Albumin/Globulin Ratio Urine Color (YELLOW) Urine Appearance (CLEAR) Urine pH (5.0-9.0) Ur Specific Kingsley (1.005-1.030) Urine Protein (NEGATIVE) Urine Glucose (UA) (NEGATIVE) Urine Ketones (NEGATIVE) Urine Occult Blood (NEGATIVE) Urine Nitrite (NEGATIVE) Urine Bilirubin (NEGATIVE) Urine Urobilinogen (0.2-1.0) mg/dL Ur Leukocyte Esterase (NEGATIVE) Urine RBC (0-5) /HPF Urine WBC (0-5/HPF) /HPF Ur Epithelial Cells (NOT SEEN) /HPF Amorphous Sediment (NOT SEEN) /HPF Urine Bacteria (0-FEW/HPF) /HPF Urine Mucus (NOT SEEN) /LPF Ethyl Alcohol (0) mg/dL SARS CoV-2 RNA Rapid TARUN Negative (NEGATIVE) Result Diagrams: 07/09/21 11:30 07/09/21 11:30 - Problem List (1) Pneumonia SNOMED Code(s): 316883768 ICD Code: J18.9 - PNEUMONIA, UNSPECIFIED ORGANISM Status: Acute Current Visit: Yes (2) GUSTAVO (acute kidney injury) SNOMED Code(s): 43696599, 22814148 ICD Code: N17.9 - ACUTE KIDNEY FAILURE, UNSPECIFIED Status: Acute Current Visit: Yes (3) HTN (hypertension) SNOMED Code(s): 11613951 ICD Code: I10 - ESSENTIAL (PRIMARY) HYPERTENSION Status: Acute Current Visit: Yes (4) CAD (coronary artery disease) SNOMED Code(s): 74962709 ICD Code: I25.10 - ATHSCL HEART DISEASE OF [place] CORONARY ARTERY W/O ANG PCTRS Status: Acute Current Visit: Yes (5) COPD (chronic obstructive pulmonary disease) SNOMED Code(s): 00675393 ICD Code: J44.9 - CHRONIC OBSTRUCTIVE PULMONARY DISEASE, UNSPECIFIED Status: Acute Current Visit: Yes (6) Anemia SNOMED Code(s): 697516706 ICD Code: D64.9 - ANEMIA, UNSPECIFIED Status: Acute Current Visit: Yes (7) Dyslipidemia SNOMED Code(s): 574788780 ICD Code: E78.5 - HYPERLIPIDEMIA, UNSPECIFIED Status: Acute Current Visit: Yes Problem List Initiated/Reviewed/Updated: Yes Orders Last 24hrs: Active Orders 24 hr Category Date Time Status Admission Diagnosis [ADT] Stat ADT 07/09/21 12:40 Ordered Admission Status [Patient Status] [ADT] Routine ADT 07/09/21 12:40 Active Antiembolic Devices [RC] , Care 07/09/21 14:12 Active [place] Catheter Insertion [Insert Urinary Catheter] [OM. Care 07/09/21 15:45 Ordered PC] Q24H Intake and Output [RC] 06,14,22 Care 07/09/21 14:10 Active Oxygen Therapy [RC] .PRN Care 07/09/21 14:02 Active Pulse Oximetry [RC] .PRN Care 07/09/21 14:10 Active RT Post Treatment Assessment [RC] Click to Edit Care 07/09/21 13:58 Active RT Pre-Treatment Assessment [RC] Click to Edit Care 07/09/21 13:58 Active Up With Assistance [RC] ASDIRECTED Care 07/09/21 14:02 Active Urinary Catheter Assessment [RC] 08, Care 07/09/21 15:32 Active VTE/DVT Education [RC] , Care 07/09/21 14:02 Active Vital Signs [RC] Q4H Care 07/09/21 14:02 Active Consult to Case Management/Gas Meter Reader [CONS] Cons 07/09/21 14:02 Active Routine Consult to Physical Therapy [PT Evaluation and Cons 07/09/21 14:00 Active Treatment] [CONS] Routine OT Evaluation and Treatment [CONS] Routine Cons 07/09/21 14:02 Active Mechanical Soft Diet [DIET] Diet 07/09/21 Lunch Active BASIC METABOLIC PANEL,BMP [CHEM] AM Lab 07/10/21 05:11 Ordered CBC WITH AUTO DIFF [HEME] AM Lab 07/10/21 05:11 Ordered CULTURE BLOOD [BC] Stat Lab 07/09/21 12:44 Received CULTURE URINE [RM] Stat Lab 07/09/21 13:40 Received PROCALCITONIN [REF] Routine Lab 07/10/21 07:00 Ordered UA RFX CINDY AND CULT IF INDIC [URIN] Stat Lab 07/09/21 10:58 Ordered UA W/MICROSCOPIC [URIN] Stat Lab 07/09/21 10:58 Ordered Acetaminophen [TylenoL] Med 07/09/21 14:02 Active 650 mg PO Q4H PRN Albuterol [Proventil HFA] Med 07/09/21 13:50 Active 0 gm INH Q6HR PRN Albuterol/Ipratropium [DuoNeb 3.0-0.5 MG/3 ML] Med 07/09/21 17:00 Active 3 ml NEB Q4HR PRN Aspirin [Halfprin] Med 07/10/21 09:00 Active 81 mg PO DAILY Check Patch Med 07/09/21 21:00 Active 1 ea TRDERM BEDTIME Clopidogrel [Plavix] Med 07/10/21 09:00 Active 75 mg PO DAILY Ferrous Sulfate Med 07/09/21 18:00 Active 325 mg PO BIDMEALS Finasteride [Proscar] Med 07/10/21 09:00 Active 5 mg PO DAILY Loperamide [Imodium] Med 07/09/21 13:50 Active 2 mg PO Q4H PRN Metoprolol Tartrate [Lopressor] Med 07/09/21 21:00 Active 12.5 mg PO BID Mometasone/Formoterol [Dulera 100-5 MCG] Med 07/09/21 21:00 Active 2 puff IH BID Multivitamins/Minerals [Vitamins and Minerals] Med 07/10/21 08:00 Active 1 tab PO WITHBREAKFAST Nicotine [Habitrol] Med 07/09/21 15:00 Active 14 mg TRDERM DAILY Nitroglycerin [Nitrostat] Med 07/09/21 14:00 Active 0.4 mg SL ASDIRECTED Tamsulosin [Flomax] Med 07/09/21 18:30 Active 0.4 mg PO PCDINNER atorvaSTATin [Lipitor] Med 07/09/21 21:00 Active 40 mg PO BEDTIME lisinopriL [Prinivil] Med 07/10/21 09:00 Active 40 mg PO DAILY predniSONE Med 07/10/21 08:00 Active 40 mg PO WITHBREAKFAST Antiembolic Hose [OM.PC] Per Unit Routine Oth 07/09/21 14:11 Ordered Resuscitation Status Routine Resus Stat 07/09/21 14:02 Ordered Medication Orders Acetaminophen (Acetaminophen 325 Mg Tab) 650 mg PO Q4H PRN PRN Reason: Pain (Mild 1-3)/fever Albuterol (Albuterol 6.7 Gm Inhaler) 0 gm INH Q6HR PRN PRN Reason: Dyspnea Albuterol/Ipratropium (Albuterol/Ipratropium 3.0-0.5 Mg/3 Ml Neb Soln) 3 ml NEB Q4HR PRN PRN Reason: Shortness of Breath Aspirin (Aspirin 81 Mg Tab.Ec) 81 mg PO DAILY MARIE Atorvastatin Calcium (Atorvastatin 20 Mg Tab) 40 mg PO BEDTIME MARIE Clopidogrel Bisulfate (Clopidogrel 75 Mg Tab) 75 mg PO DAILY MARIE Ferrous Sulfate (Ferrous Sulfate 325 Mg Tab) 325 mg PO BIDMEALS [facility] Finasteride (Finasteride 5 Mg Tab) 5 mg PO DAILY MARIE Lisinopril (Lisinopril 20 Mg Tab) 40 mg PO DAILY MARIE Loperamide HCl (Loperamide 2 Mg Cap) 2 mg PO Q4H PRN PRN Reason: Diarrhea Metoprolol Tartrate (Metoprolol Tartrate 25 Mg Tab) 12.5 mg PO BID [facility] Miscellaneous Information (Check Nicotine Patch) 1 ea TRDERM BEDTIME [facility] Mometasone Furoate/Formoterol Fumar (Formoterol/Mometasone 100-5 Mcg 8.8 Gm Inhaler) 2 puff IH BID [facility] Multivitamins/Minerals (Multivitamins, Therapeutic With Minerals Tab) 1 tab PO WITHBREAKFAST [facility] Nicotine (Nicotine 14 Mg/24 Hr Patch) 14 mg TRDERM DAILY [facility] Nitroglycerin (Nitroglycerin 0.4 Mg Tab.Sl) 0.4 mg SL ASDIRECTED [facility] Prednisone (Prednisone 10 Mg Tab) 40 mg PO WITHBREAKFAST [facility] Tamsulosin HCl (Tamsulosin 0.4 Mg Cap.Er) 0.4 mg PO PCDINNER [facility] Assessment/Plan Comment:: 86 yo with multiple med problmes, recent admission for pneumonia, weakness, requiring swing bed for pt/ot 1 day after swing bed discharge being readmitted after a fall. pulmonary infiltrate pneumonia - recently treated unclear if acute new infection or just remaining rad. changes received ceftriaxone, azithro in er will follow for symptoms, check procalcitonin hold further Abx for now fall no apparent c spine, head injury follow wt pt ot consult sw for placement GUSTAVO with urinary retention >1300cc place [place] urine appear dark - hydrate gently hold lisinopril recheck bmp in AM copd no acute exacerbation resume formoterol Albuterol inh will taper prednisone cad, htn, dyslipidemia resume metoprolol hold lisinopril re:gustavo cont asa, plavix Anemia resume iron, mvi leukocytosis likely due to prednisone DVT use sq heparin code status: d/w dr. Mcmahon and son - DNR
[2021-07-09] MEDS: Nicotine 14 MG/24 Hr Patch TRDERM SCH (16:26)
[2021-07-09] MEDS ORDERED: NS + KCl 20mEq/L 1,000 ML IV SCH (16:45)
[2021-07-09] MEDS: Ferrous Sulfate 325 MG Tab PO SCH (17:17)
[2021-07-09] MEDS: Tamsulosin 0.4 MG Cap.ER PO SCH ×2 (17:20→17:35)
[2021-07-09] MEDS: Acetaminophen 325 MG Tab PO PRN (21:15)
[2021-07-09] MEDS: Metoprolol Tartrate 25 MG Tab PO SCH (21:16)
[2021-07-09] MEDS: atorvaSTATin 20 MG Tab PO SCH (21:16)
[2021-07-09] MEDS: Heparin Sodium 5,000 Units/ML Vial SUBCUT SCH (21:19)
[2021-07-09] MEDS: Formoterol/Mometasone 100-5 MCG 8.8 GM Inhaler IH SCH (21:22)
[2021-07-09] MEDS ORDERED: traZODone 50 MG Tab PO ONE (23:46)
[2021-07-09] MEDS ORDERED: LORazepam 2 MG/ML SDV IVPUSH PRN (23:48)
[2021-07-10] MEDS: Heparin Sodium 5,000 Units/ML Vial SUBCUT SCH ×3 (06:17→22:03)
[2021-07-10] MEDS: Aspirin 81 MG Tab.EC PO SCH (08:22)
[2021-07-10] MEDS: Multivitamins, Therapeutic with Minerals Tab PO SCH (08:22)
[2021-07-10] MEDS: Finasteride 5 MG Tab PO SCH (08:23)
[2021-07-10] MEDS: Metoprolol Tartrate 25 MG Tab PO SCH ×2 (08:23→21:59)
[2021-07-10] MEDS: Ferrous Sulfate 325 MG Tab PO SCH ×2 (08:23→18:04)
[2021-07-10] MEDS: Clopidogrel 75 MG Tab PO SCH (08:23)
[2021-07-10] MEDS: Nicotine 14 MG/24 Hr Patch TRDERM SCH (08:26)
[2021-07-10] MEDS: predniSONE 10 MG Tab PO SCH (08:27)
[2021-07-10] MEDS: Formoterol/Mometasone 100-5 MCG 8.8 GM Inhaler IH SCH ×2 (08:30→22:02)
[2021-07-10] MEDS ORDERED: Lisinopril 20 MG Tab PO SCH (09:00)
--- NOTE | 2021-07-10 10:30 | PCM.PN ---
- General Info Date of Service: 07/10/21 Subjective Update: overnight had episode of moderate to severeconfusion, difficulty sleeping, some aggressive behavior. Symptoms improved after receiving trazodone. This morning complains of runny nose but no associated sore throat, fever, shortness of breath. Alert, oriented. In conversation with family. Functional Status: Reports: Pain Controlled, Tolerating Diet. Denies: Ambulating - Review of Systems General: Reports: Weakness. Denies: Fever Pulmonary: Denies: Shortness of Breath Cardiovascular: Denies: Chest Pain, Edema Gastrointestinal: Denies: Abdominal Pain Neurological: Reports: Confusion (last night), Weakness Psychiatric: Reports: Confusion, Agitation (last night). Denies: Anxiety - Patient Data Vitals - Most Recent: Last Vital Signs Temp 99.3 F 07/10/21 08:00 Pulse 95 07/10/21 08:23 Resp 20 07/10/21 08:00 BP 122/104 H 07/10/21 08:23 Pulse Ox 96 07/10/21 08:00 Weight - Most Recent: 129 lb 3.2 oz I&O - Last 24 Hours: Intake & Output 07/09/21 07/10/21 07/10/21 22:59 06:59 14:59 Intake Total 325 0 360 Output Total 1600 0 Balance -1275 0 360 Lab Results Last 24 Hours: Laboratory Results - last 24 hr 07/09/21 07/09/21 07/09/21 Range/Units 10:58 11:30 11:30 WBC 20.7 H (5.0-10.0) 10^3/uL RBC 3.59 L (4.6-6.2) 10^6/uL Hgb 11.8 L (14.0-18.0) g/dL Hct 36.1 L (40.0-54.0) % MCV 100.6 H (80-100) fL MCH 32.9 (27.0-34.0) pg MCHC 32.7 L (33.0-35.0) g/dL Plt Count 287 (150-450) 10^3/uL Neut % (Auto) 90.4 H (42.2-75.2) % Lymph % (Auto) 2.7 L (20.5-50.1) % [place] % (Auto) 6.8 (2-8) % Eos % (Auto) 0.0 L (1.0-3.0) % Baso % (Auto) 0.1 (0.0-1.0) % Sodium 142 (136-145) mmol/L Potassium 4.5 (3.5-5.1) mmol/L Chloride 104 (98-107) mmol/L Carbon Dioxide 28 (21-32) mmol/L Anion Gap 14.5 H (7-13) mEq/L BUN 35 H (7-18) mg/dL Creatinine 1.81 H (0.70-1.30) mg/dL Est Cr Clr Drug Dosing 25.60 mL/min Estimated GFR (MDRD) 36 BUN/Creatinine Ratio 19.3 (No establ ref range) Glucose 124 H (70-99) mg/dL POC Glucose (70-99) mg/dL Calcium 8.1 L (8.5-10.1) mg/dL Magnesium 2.2 (1.8-2.4) mg/dL Total Bilirubin 0.9 (0.2-1.0) mg/dL AST 18 (15-37) U/L ALT 26 (16-63) U/L Alkaline Phosphatase 95 (46-116) U/L Creatine Kinase (39-308) U/L C-Reactive Protein 5.9 H (0.0-0.9) mg/dL Total Protein 5.6 L (6.4-8.2) g/dL Albumin 2.7 L (3.4-5.0) g/dL Globulin 2.9 Albumin/Globulin Ratio 0.93 Urine Color Yellow (YELLOW) Urine Appearance Clear (CLEAR) Urine pH 5.5 (5.0-9.0) Ur Specific [place] 1.020 (1.005-1.030) Urine Protein Negative (NEGATIVE) Urine Glucose (UA) Negative (NEGATIVE) Urine Ketones Negative (NEGATIVE) Urine Occult Blood Trace-intact H (NEGATIVE) Urine Nitrite Negative (NEGATIVE) Urine Bilirubin Negative (NEGATIVE) Urine Urobilinogen 0.2 (0.2-1.0) mg/dL Ur Leukocyte Esterase Trace H (NEGATIVE) Urine RBC 5-10 H (0-5) /HPF Urine WBC 5-10 H (0-5/HPF) /HPF Ur Epithelial Cells Rare (NOT SEEN) /HPF Amorphous Sediment Rare (NOT SEEN) /HPF Urine Bacteria Occasional (0-FEW/HPF) /HPF Urine Mucus Rare (NOT SEEN) /LPF Ethyl Alcohol < 3 (0) mg/dL SARS CoV-2 RNA Rapid TARUN (NEGATIVE) 07/09/21 07/09/21 07/10/21 Range/Units 11:37 12:46 00:26 WBC (5.0-10.0) 10^3/uL RBC (4.6-6.2) 10^6/uL Hgb (14.0-18.0) g/dL Hct (40.0-54.0) % MCV (80-100) fL MCH (27.0-34.0) pg MCHC (33.0-35.0) g/dL Plt Count (150-450) 10^3/uL Neut % (Auto) (42.2-75.2) % Lymph % (Auto) (20.5-50.1) % [place] % (Auto) (2-8) % Eos % (Auto) (1.0-3.0) % Baso % (Auto) (0.0-1.0) % Sodium (136-145) mmol/L Potassium (3.5-5.1) mmol/L Chloride (98-107) mmol/L Carbon Dioxide (21-32) mmol/L Anion Gap (7-13) mEq/L BUN (7-18) mg/dL Creatinine (0.70-1.30) mg/dL Est Cr Clr Drug Dosing mL/min Estimated GFR (MDRD) BUN/Creatinine Ratio (No establ ref range) Glucose (70-99) mg/dL POC Glucose 152 H (70-99) mg/dL Calcium (8.5-10.1) mg/dL Magnesium (1.8-2.4) mg/dL Total Bilirubin (0.2-1.0) mg/dL AST (15-37) U/L ALT (16-63) U/L Alkaline Phosphatase (46-116) U/L Creatine Kinase 54 (39-308) U/L C-Reactive Protein (0.0-0.9) mg/dL Total Protein (6.4-8.2) g/dL Albumin (3.4-5.0) g/dL Globulin Albumin/Globulin Ratio Urine Color (YELLOW) Urine Appearance (CLEAR) Urine pH (5.0-9.0) Ur Specific [place] (1.005-1.030) Urine Protein (NEGATIVE) Urine Glucose (UA) (NEGATIVE) Urine Ketones (NEGATIVE) Urine Occult Blood (NEGATIVE) Urine Nitrite (NEGATIVE) Urine Bilirubin (NEGATIVE) Urine Urobilinogen (0.2-1.0) mg/dL Ur Leukocyte Esterase (NEGATIVE) Urine RBC (0-5) /HPF Urine WBC (0-5/HPF) /HPF Ur Epithelial Cells (NOT SEEN) /HPF Amorphous Sediment (NOT SEEN) /HPF Urine Bacteria (0-FEW/HPF) /HPF Urine Mucus (NOT SEEN) /LPF Ethyl Alcohol (0) mg/dL SARS CoV-2 RNA Rapid TARUN Negative (NEGATIVE) 07/10/21 07/10/21 Range/Units 06:10 06:10 WBC 11.2 H (5.0-10.0) 10^3/uL RBC 3.16 L (4.6-6.2) 10^6/uL Hgb 10.2 L D (14.0-18.0) g/dL Hct 32.1 L (40.0-54.0) % MCV 101.6 H (80-100) fL MCH 32.3 (27.0-34.0) pg MCHC 31.8 L (33.0-35.0) g/dL Plt Count 243 (150-450) 10^3/uL Neut % (Auto) 92.3 H (42.2-75.2) % Lymph % (Auto) 3.9 L (20.5-50.1) % [place] % (Auto) 3.7 (2-8) % Eos % (Auto) 0.0 L (1.0-3.0) % Baso % (Auto) 0.1 (0.0-1.0) % Sodium 144 (136-145) mmol/L Potassium 5.0 (3.5-5.1) mmol/L Chloride 109 H (98-107) mmol/L Carbon Dioxide 27 (21-32) mmol/L Anion Gap 13.0 (7-13) mEq/L BUN 29 H (7-18) mg/dL Creatinine 1.21 (0.70-1.30) mg/dL Est Cr Clr Drug Dosing 35.65 mL/min Estimated GFR (MDRD) 57 BUN/Creatinine Ratio (No establ ref range) Glucose 127 H (70-99) mg/dL POC Glucose (70-99) mg/dL Calcium 8.2 L (8.5-10.1) mg/dL Magnesium (1.8-2.4) mg/dL Total Bilirubin (0.2-1.0) mg/dL AST (15-37) U/L ALT (16-63) U/L Alkaline Phosphatase (46-116) U/L Creatine Kinase (39-308) U/L C-Reactive Protein (0.0-0.9) mg/dL Total Protein (6.4-8.2) g/dL Albumin (3.4-5.0) g/dL Globulin Albumin/Globulin Ratio Urine Color (YELLOW) Urine Appearance (CLEAR) Urine pH (5.0-9.0) Ur Specific [place] (1.005-1.030) Urine Protein (NEGATIVE) Urine Glucose (UA) (NEGATIVE) Urine Ketones (NEGATIVE) Urine Occult Blood (NEGATIVE) Urine Nitrite (NEGATIVE) Urine Bilirubin (NEGATIVE) Urine Urobilinogen (0.2-1.0) mg/dL Ur Leukocyte Esterase (NEGATIVE) Urine RBC (0-5) /HPF Urine WBC (0-5/HPF) /HPF Ur Epithelial Cells (NOT SEEN) /HPF Amorphous Sediment (NOT SEEN) /HPF Urine Bacteria (0-FEW/HPF) /HPF Urine Mucus (NOT SEEN) /LPF Ethyl Alcohol (0) mg/dL SARS CoV-2 RNA Rapid TARUN (NEGATIVE) Adrián Results Last 24 Hours: Microbiology 07/09/21 13:40 Urine Culture - Preliminary Urine, Clean Catch NO GROWTH AFTER 1 DAY Med Orders - Current: Current Medications Acetaminophen (Acetaminophen 325 Mg Tab) 650 mg PO Q4H PRN PRN Reason: Pain (Mild 1-3)/fever Last Admin: 07/09/21 21:15 Dose: 650 mg Documented by: Albuterol (Albuterol 6.7 Gm Inhaler) 0 gm INH Q6HR PRN PRN Reason: Dyspnea Albuterol/Ipratropium (Albuterol/Ipratropium 3.0-0.5 Mg/3 Ml Neb Soln) 3 ml NEB Q4HR PRN PRN Reason: Shortness of Breath Last Admin: 07/09/21 23:35 Dose: 3 ml Documented by: Aspirin (Aspirin 81 Mg Tab.Ec) 81 mg PO DAILY [facility] Last Admin: 07/10/21 08:22 Dose: 81 mg Documented by: Atorvastatin Calcium (Atorvastatin 20 Mg Tab) 40 mg PO BEDTIME [facility] Last Admin: 07/09/21 21:16 Dose: 40 mg Documented by: Clopidogrel Bisulfate (Clopidogrel 75 Mg Tab) 75 mg PO DAILY [facility] Last Admin: 07/10/21 08:23 Dose: 75 mg Documented by: Ferrous Sulfate (Ferrous Sulfate 325 Mg Tab) 325 mg PO BIDMEALS [facility] Last Admin: 07/10/21 08:23 Dose: 325 mg Documented by: Finasteride (Finasteride 5 Mg Tab) 5 mg PO DAILY [facility] Last Admin: 07/10/21 08:23 Dose: 5 mg Documented by: Heparin Sodium (Porcine) (Heparin Sodium 5,000 Units/Ml Vial) 5,000 units SUBCU T Q8HR [facility] Last Admin: 07/10/21 06:17 Dose: 5,000 units Documented by: Loperamide HCl (Loperamide 2 Mg Cap) 2 mg PO Q4H PRN PRN Reason: Diarrhea Lorazepam (Lorazepam 2 Mg/Ml Sdv) 1 mg IVPUSH Q4H PRN PRN Reason: Agitation Metoprolol Tartrate (Metoprolol Tartrate 25 Mg Tab) 12.5 mg PO BID [facility] Last Admin: 07/10/21 08:23 Dose: 12.5 mg Documented by: Miscellaneous Information (Check Nicotine Patch) 1 ea TRDERM BEDTIME [facility] Last Admin: 07/09/21 21:18 Dose: 1 ea Documented by: Mometasone Furoate/Formoterol Fumar (Formoterol/Mometasone 100-5 Mcg 8.8 Gm Inhaler) 2 puff IH BID [facility] Last Admin: 07/10/21 08:30 Dose: 2 puff Documented by: Multivitamins/Minerals (Multivitamins, Therapeutic With Minerals Tab) 1 tab PO WITHBREAKFAST [facility] Last Admin: 07/10/21 08:22 Dose: 1 tab Documented by: Nicotine (Nicotine 14 Mg/24 Hr Patch) 14 mg TRDERM DAILY [facility] Last Admin: 07/10/21 08:26 Dose: 14 mg Documented by: Nitroglycerin (Nitroglycerin 0.4 Mg Tab.Sl) 0.4 mg SL ASDIRECTED [facility] Prednisone (Prednisone 10 Mg Tab) 40 mg PO WITHBREAKFAST [facility] Last Admin: 07/10/21 08:27 Dose: 40 mg Documented by: Tamsulosin HCl (Tamsulosin 0.4 Mg Cap.Er) 0.4 mg PO PCDINNER [facility] Last Admin: 07/09/21 17:35 Dose: Not Given Documented by: Trazodone HCl (Trazodone 50 Mg Tab) 50 mg PO BEDTIME [facility] Discontinued Medications Albuterol/Ipratropium (Albuterol/Ipratropium 3.0-0.5 Mg/3 Ml Neb Soln) 3 ml NEB Q4H PRN PRN Reason: Shortness of Breath Last Admin: 07/09/21 13:02 Dose: 3 ml Documented by: Albuterol/Ipratropium (Albuterol/Ipratropium 3.0-0.5 Mg/3 Ml Neb Soln) 3 ml NEB Q4H PRN PRN Reason: Shortness of Breath Azithromycin 500 mg/ Sodium (Chloride) 250 mls @ 250 mls/hr IV ONETIME ONE Stop: 07/09/21 13:43 Last Admin: 07/09/21 13:43 Dose: 250 mls/hr Documented by: Ceftriaxone Sodium 1 gm/ (Sodium Chloride) 50 mls @ 100 mls/hr IV ONETIME ONE Stop: 07/09/21 13:14 Last Admin: 07/09/21 13:13 Dose: 100 mls/hr Documented by: Potassium Chloride/Sodium Chloride (Normal Saline With 20 Meq Kcl) 1,000 mls @ 75 mls/hr IV ASDIRECTED [facility] Last Admin: 07/09/21 17:52 Dose: 75 mls/hr Documented by: Lisinopril (Lisinopril 20 Mg Tab) 40 mg PO DAILY [facility] Prednisone (Prednisone 10 Mg Tab) 50 mg PO WITHBREAKFAST [facility] Last Admin: 07/09/21 14:38 Dose: 50 mg Documented by: Trazodone HCl (Trazodone 50 Mg Tab) 50 mg PO ONETIME ONE Stop: 07/09/21 23:47 Last Admin: 07/09/21 23:56 Dose: 50 mg Documented by: - Exam Quality Assessment: No: Supplemental Oxygen Urinary Catheter Total Time: 0Days 5Hours General: Alert, Oriented Neck: Supple Lungs: Normal Respiratory Effort, Decreased Breath Sounds Cardiovascular: Regular Rate, Regular Rhythm GI/Abdominal Exam: Normal Bowel Sounds, Soft, Non-Tender Extremities: No Pedal Edema Neurological: No New Focal Deficit Psy/Mental Status: Alert, Normal Affect, Normal Mood - Patient Data Lab Results Last 24 hrs: Laboratory Results - last 24 hr 07/09/21 07/09/21 07/09/21 Range/Units 10:58 11:30 11:30 WBC 20.7 H (5.0-10.0) 10^3/uL RBC 3.59 L (4.6-6.2) 10^6/uL Hgb 11.8 L (14.0-18.0) g/dL Hct 36.1 L (40.0-54.0) % MCV 100.6 H (80-100) fL MCH 32.9 (27.0-34.0) pg MCHC 32.7 L (33.0-35.0) g/dL Plt Count 287 (150-450) 10^3/uL Neut % (Auto) 90.4 H (42.2-75.2) % Lymph % (Auto) 2.7 L (20.5-50.1) % [place] % (Auto) 6.8 (2-8) % Eos % (Auto) 0.0 L (1.0-3.0) % Baso % (Auto) 0.1 (0.0-1.0) % Sodium 142 (136-145) mmol/L Potassium 4.5 (3.5-5.1) mmol/L Chloride 104 (98-107) mmol/L Carbon Dioxide 28 (21-32) mmol/L Anion Gap 14.5 H (7-13) mEq/L BUN 35 H (7-18) mg/dL Creatinine 1.81 H (0.70-1.30) mg/dL Est Cr Clr Drug Dosing 25.60 mL/min Estimated GFR (MDRD) 36 BUN/Creatinine Ratio 19.3 (No establ ref range) Glucose 124 H (70-99) mg/dL POC Glucose (70-99) mg/dL Calcium 8.1 L (8.5-10.1) mg/dL Magnesium 2.2 (1.8-2.4) mg/dL Total Bilirubin 0.9 (0.2-1.0) mg/dL AST 18 (15-37) U/L ALT 26 (16-63) U/L Alkaline Phosphatase 95 (46-116) U/L Creatine Kinase (39-308) U/L C-Reactive Protein 5.9 H (0.0-0.9) mg/dL Total Protein 5.6 L (6.4-8.2) g/dL Albumin 2.7 L (3.4-5.0) g/dL Globulin 2.9 Albumin/Globulin Ratio 0.93 Urine Color Yellow (YELLOW) Urine Appearance Clear (CLEAR) Urine pH 5.5 (5.0-9.0) Ur Specific [place] 1.020 (1.005-1.030) Urine Protein Negative (NEGATIVE) Urine Glucose (UA) Negative (NEGATIVE) Urine Ketones Negative (NEGATIVE) Urine Occult Blood Trace-intact H (NEGATIVE) Urine Nitrite Negative (NEGATIVE) Urine Bilirubin Negative (NEGATIVE) Urine Urobilinogen 0.2 (0.2-1.0) mg/dL Ur Leukocyte Esterase Trace H (NEGATIVE) Urine RBC 5-10 H (0-5) /HPF Urine WBC 5-10 H (0-5/HPF) /HPF Ur Epithelial Cells Rare (NOT SEEN) /HPF Amorphous Sediment Rare (NOT SEEN) /HPF Urine Bacteria Occasional (0-FEW/HPF) /HPF Urine Mucus Rare (NOT SEEN) /LPF Ethyl Alcohol < 3 (0) mg/dL SARS CoV-2 RNA Rapid TARUN (NEGATIVE) 07/09/21 07/09/21 07/10/21 Range/Units 11:37 12:46 00:26 WBC (5.0-10.0) 10^3/uL RBC (4.6-6.2) 10^6/uL Hgb (14.0-18.0) g/dL Hct (40.0-54.0) % MCV (80-100) fL MCH (27.0-34.0) pg MCHC (33.0-35.0) g/dL Plt Count (150-450) 10^3/uL Neut % (Auto) (42.2-75.2) % Lymph % (Auto) (20.5-50.1) % [place] % (Auto) (2-8) % Eos % (Auto) (1.0-3.0) % Baso % (Auto) (0.0-1.0) % Sodium (136-145) mmol/L Potassium (3.5-5.1) mmol/L Chloride (98-107) mmol/L Carbon Dioxide (21-32) mmol/L Anion Gap (7-13) mEq/L BUN (7-18) mg/dL Creatinine (0.70-1.30) mg/dL Est Cr Clr Drug Dosing mL/min Estimated GFR (MDRD) BUN/Creatinine Ratio (No establ ref range) Glucose (70-99) mg/dL POC Glucose 152 H (70-99) mg/dL Calcium (8.5-10.1) mg/dL Magnesium (1.8-2.4) mg/dL Total Bilirubin (0.2-1.0) mg/dL AST (15-37) U/L ALT (16-63) U/L Alkaline Phosphatase (46-116) U/L Creatine Kinase 54 (39-308) U/L C-Reactive Protein (0.0-0.9) mg/dL Total Protein (6.4-8.2) g/dL Albumin (3.4-5.0) g/dL Globulin Albumin/Globulin Ratio Urine Color (YELLOW) Urine Appearance (CLEAR) Urine pH (5.0-9.0) Ur Specific [place] (1.005-1.030) Urine Protein (NEGATIVE) Urine Glucose (UA) (NEGATIVE) Urine Ketones (NEGATIVE) Urine Occult Blood (NEGATIVE) Urine Nitrite (NEGATIVE) Urine Bilirubin (NEGATIVE) Urine Urobilinogen (0.2-1.0) mg/dL Ur Leukocyte Esterase (NEGATIVE) Urine RBC (0-5) /HPF Urine WBC (0-5/HPF) /HPF Ur Epithelial Cells (NOT SEEN) /HPF Amorphous Sediment (NOT SEEN) /HPF Urine Bacteria (0-FEW/HPF) /HPF Urine Mucus (NOT SEEN) /LPF Ethyl Alcohol (0) mg/dL SARS CoV-2 RNA Rapid TARUN Negative (NEGATIVE) 07/10/21 07/10/21 Range/Units 06:10 06:10 WBC 11.2 H (5.0-10.0) 10^3/uL RBC 3.16 L (4.6-6.2) 10^6/uL Hgb 10.2 L D (14.0-18.0) g/dL Hct 32.1 L (40.0-54.0) % MCV 101.6 H (80-100) fL MCH 32.3 (27.0-34.0) pg MCHC 31.8 L (33.0-35.0) g/dL Plt Count 243 (150-450) 10^3/uL Neut % (Auto) 92.3 H (42.2-75.2) % Lymph % (Auto) 3.9 L (20.5-50.1) % [place] % (Auto) 3.7 (2-8) % Eos % (Auto) 0.0 L (1.0-3.0) % Baso % (Auto) 0.1 (0.0-1.0) % Sodium 144 (136-145) mmol/L Potassium 5.0 (3.5-5.1) mmol/L Chloride 109 H (98-107) mmol/L Carbon Dioxide 27 (21-32) mmol/L Anion Gap 13.0 (7-13) mEq/L BUN 29 H (7-18) mg/dL Creatinine 1.21 (0.70-1.30) mg/dL Est Cr Clr Drug Dosing 35.65 mL/min Estimated GFR (MDRD) 57 BUN/Creatinine Ratio (No establ ref range) Glucose 127 H (70-99) mg/dL POC Glucose (70-99) mg/dL Calcium 8.2 L (8.5-10.1) mg/dL Magnesium (1.8-2.4) mg/dL Total Bilirubin (0.2-1.0) mg/dL AST (15-37) U/L ALT (16-63) U/L Alkaline Phosphatase (46-116) U/L Creatine Kinase (39-308) U/L C-Reactive Protein (0.0-0.9) mg/dL Total Protein (6.4-8.2) g/dL Albumin (3.4-5.0) g/dL Globulin Albumin/Globulin Ratio Urine Color (YELLOW) Urine Appearance (CLEAR) Urine pH (5.0-9.0) Ur Specific [place] (1.005-1.030) Urine Protein (NEGATIVE) Urine Glucose (UA) (NEGATIVE) Urine Ketones (NEGATIVE) Urine Occult Blood (NEGATIVE) Urine Nitrite (NEGATIVE) Urine Bilirubin (NEGATIVE) Urine Urobilinogen (0.2-1.0) mg/dL Ur Leukocyte Esterase (NEGATIVE) Urine RBC (0-5) /HPF Urine WBC (0-5/HPF) /HPF Ur Epithelial Cells (NOT SEEN) /HPF Amorphous Sediment (NOT SEEN) /HPF Urine Bacteria (0-FEW/HPF) /HPF Urine Mucus (NOT SEEN) /LPF Ethyl Alcohol (0) mg/dL SARS CoV-2 RNA Rapid TARUN (NEGATIVE) Result Diagrams: 07/10/21 06:10 07/10/21 06:10 Adrián Results Last 24 hrs: Microbiology 07/09/21 13:40 Urine Culture - Preliminary Urine, Clean Catch NO GROWTH AFTER 1 DAY Sepsis Event Note - Evaluation Sepsis Screening Result: Possible Sepsis Risk - Focused Exam Vital Signs: Vital Signs Temp Pulse Pulse Resp BP BP Pulse Ox 07/10/21 08:23 95 122/104 H 07/10/21 08:00 99.3 F 95 20 122/104 H 96 07/10/21 04:00 98.6 F 67 18 98/47 L 97 07/10/21 00:00 99.2 F 93 20 133/52 L 97 - Problem List & Annotations (1) Pneumonia SNOMED Code(s): 682281652 Code(s): J18.9 - PNEUMONIA, UNSPECIFIED ORGANISM Status: Acute Current Visit: Yes (2) GUSTAVO (acute kidney injury) SNOMED Code(s): 25395289, 07093897 Code(s): N17.9 - ACUTE KIDNEY FAILURE, UNSPECIFIED Status: Acute Current Visit: Yes (3) HTN (hypertension) SNOMED Code(s): 38293870 Code(s): I10 - ESSENTIAL (PRIMARY) HYPERTENSION Status: Acute Current V isit: Yes (4) CAD (coronary artery disease) SNOMED Code(s): 51582667 Code(s): I25.10 - ATHSCL HEART DISEASE OF [place] CORONARY ARTERY W/O ANG PCTRS Status: Acute Current Visit: Yes (5) COPD (chronic obstructive pulmonary disease) SNOMED Code(s): 54557492 Code(s): J44.9 - CHRONIC OBSTRUCTIVE PULMONARY DISEASE, UNSPECIFIED Status: Acute Current Visit: Yes (6) Anemia SNOMED Code(s): 097142095 Code(s): D64.9 - ANEMIA, UNSPECIFIED Status: Acute Current Visit: Yes (7) Dyslipidemia SNOMED Code(s): 648356116 Code(s): E78.5 - HYPERLIPIDEMIA, UNSPECIFIED Status: Acute Current Visit: Yes - Problem List Review Problem List Initiated/Reviewed/Updated: Yes - My Orders Last 24 Hours: My Active Orders 07/09/21 15:32 Urinary Catheter Assessment [RC] 08,07/09/21 15:45 Montgomery Catheter Insertion [Insert Urinary Catheter] [OM.PC] Q24H 07/09/21 22:00 Heparin Sodium 5,000 units SUBCUT Q8HR 07/09/21 23:30 Communication Order [RC] PRN 07/09/21 23:48 LORazepam [Ativan] 1 mg IVPUSH Q4H PRN 07/10/21 06:10 PROCALCITONIN [REF] Routine 07/10/21 08:00 predniSONE 40 mg PO WITHBREAKFAST 07/11/21 21:00 traZODone 50 mg PO BEDTIME - Plan Plan:: 86 yo with multiple med problmes, recent admission for pneumonia, weakness, requiring swing bed for pt/ot 1 day after swing bed discharge being readmitted after a fall. pulmonary infiltrate pneumonia - recently treated question if acute new infection or just remaining rad. changes no fever, white count is down, only has chronic cough will follow for symptoms, pending procalcitonin hold further Abx for now fall no apparent c spine, head injury follow with pt ot discussed with sw and family plan for assisted placement urinary retention >1300cc placed montgomery overnight the patient was confused and pulled catheter out We will check again for retention and place Montgomery back if needed Acute renal failure has basically resolved Continue to monitor for retention Stop IV fluids continue to hold lisinopril recheck bmp in AM copd no acute exacerbation continue formoterol Albuterol inh will taper prednisone cad, htn, dyslipidemia resume metoprolol hold lisinopril re:gustavo and no significant elevation in blood pressure now cont asa, plavix Anemia resume iron, mvi leukocytosis likely due to prednisone we'll monitor DVT use sq heparin
[2021-07-10] MEDS: Tamsulosin 0.4 MG Cap.ER PO SCH (18:05)
[2021-07-10] MEDS: atorvaSTATin 20 MG Tab PO SCH (21:59)
[2021-07-10] MEDS: Acetaminophen 325 MG Tab PO PRN (22:00)
[2021-07-11] MEDS: traZODone 50 MG Tab PO SCH ×2 (00:59→21:26)
[2021-07-11] MEDS: Heparin Sodium 5,000 Units/ML Vial SUBCUT SCH ×3 (05:39→21:28)
[2021-07-11 06:24] LABS: ANION GAP 13.3 mEq/L (7-13); CHLORIDE,CL 106 mmol/L (98-107); SODIUM,NA 142 mmol/L (136-145)
[2021-07-11] MEDS: predniSONE 10 MG Tab PO SCH (09:43)
[2021-07-11] MEDS: Aspirin 81 MG Tab.EC PO SCH (09:43)
[2021-07-11] MEDS: Clopidogrel 75 MG Tab PO SCH (09:44)
[2021-07-11] MEDS: Ferrous Sulfate 325 MG Tab PO SCH ×2 (09:44→18:12)
[2021-07-11] MEDS: Finasteride 5 MG Tab PO SCH (09:44)
[2021-07-11] MEDS: Multivitamins, Therapeutic with Minerals Tab PO SCH (09:44)
[2021-07-11] MEDS: Nicotine 14 MG/24 Hr Patch TRDERM SCH (09:52)
[2021-07-11] MEDS: Formoterol/Mometasone 100-5 MCG 8.8 GM Inhaler IH SCH ×2 (09:53→21:32)
[2021-07-11] MEDS: Metoprolol Tartrate 25 MG Tab PO SCH ×2 (09:54→21:26)
--- NOTE | 2021-07-11 12:24 | PCM.PN ---
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 Noted to have urinary retention about 6-700 mL on bladder scan Montgomery catheter was placed which resolved the symptoms now he is feeling well, eating well Functional Status: Reports: Pain Controlled, Tolerating Diet. Denies: Urinating - Review of Systems Pulmonary: Denies: Shortness of Breath Cardiovascular: Denies: Chest Pain, Edema Gastrointestinal: Denies: Abdominal Pain Genitourinary: Denies: Hematuria Psychiatric: Reports: Confusion (last night) - Patient Data Vitals - Most Recent: Last Vital Signs Temp 97.8 F 07/11/21 08:00 Pulse 72 07/11/21 09:54 Resp 20 07/11/21 08:00 BP 121/51 L 07/11/21 09:54 Pulse Ox 95 07/11/21 08:00 Weight - Most Recent: 129 lb 3.2 oz I&O - Last 24 Hours: Intake & Output 07/10/21 07/11/21 07/11/21 22:59 06:59 14:59 Intake Total 120 400 Balance 120 400 Lab Results Last 24 Hours: Laboratory Results - last 24 hr 07/10/21 07/11/21 07/11/21 Range/Units 06:10 05:49 05:49 WBC 13.0 H (5.0-10.0) 10^3/uL RBC 3.34 L (4.6-6.2) 10^6/uL Hgb 11.0 L (14.0-18.0) g/dL Hct 33.8 L (40.0-54.0) % MCV 101.2 H (80-100) fL MCH 32.9 (27.0-34.0) pg MCHC 32.5 L (33.0-35.0) g/dL Plt Count 284 (150-450) 10^3/uL Neut % (Auto) 80.8 H (42.2-75.2) % Lymph % (Auto) 9.4 L (20.5-50.1) % Pettis % (Auto) 9.6 H (2-8) % Eos % (Auto) 0.1 L (1.0-3.0) % Baso % (Auto) 0.1 (0.0-1.0) % Sodium 142 (136-145) mmol/L Potassium 4.3 (3.5-5.1) mmol/L Chloride 106 (98-107) mmol/L Carbon Dioxide 27 (21-32) mmol/L Anion Gap 13.3 H (7-13) mEq/L BUN 27 H (7-18) mg/dL Creatinine 0.98 (0.70-1.30) mg/dL Est Cr Clr Drug Dosing 44.02 mL/min Estimated GFR (MDRD) > 60 Glucose 94 (70-99) mg/dL Calcium 8.5 (8.5-10.1) mg/dL Procalcitonin 0.16 H ng/mL Adrián Results Last 24 Hours: Microbiology 07/09/21 13:40 Urine Culture - Final Urine, Clean Catch NO GROWTH AFTER 2 DAYS 07/09/21 12:44 Aerobic Blood Culture - Preliminary Blood - Arm, Right NO GROWTH AFTER 1 DAY Anaerobic Blood Culture - Preliminary NO GROWTH AFTER 1 DAY Med Orders - Current: Current Medications Acetaminophen (Acetaminophen 325 Mg Tab) 650 mg PO Q4H PRN PRN Reason: Pain (Mild 1-3)/fever Last Admin: 07/10/21 22:00 Dose: 650 mg Documented by: Albuterol (Albuterol 6.7 Gm Inhaler) 0 gm INH Q6HR PRN PRN Reason: Dyspnea Albuterol/Ipratropium (Albuterol/Ipratropium 3.0-0.5 Mg/3 Ml Neb Soln) 3 ml NEB Q4HR PRN PRN Reason: Shortness of Breath Last Admin: 07/09/21 23:35 Dose: 3 ml Documented by: Aspirin (Aspirin 81 Mg Tab.Ec) 81 mg PO DAILY [facility] Last Admin: 07/11/21 09:43 Dose: 81 mg Documented by: Atorvastatin Calcium (Atorvastatin 20 Mg Tab) 40 mg PO BEDTIME [facility] Last Admin: 07/10/21 21:59 Dose: 40 mg Documented by: Clopidogrel Bisulfate (Clopidogrel 75 Mg Tab) 75 mg PO DAILY [facility] Last Admin: 07/11/21 09:44 Dose: 75 mg Documented by: Ferrous Sulfate (Ferrous Sulfate 325 Mg Tab) 325 mg PO BIDMEALS [facility] Last Admin: 07/11/21 09:44 Dose: 325 mg Documented by: Finasteride (Finasteride 5 Mg Tab) 5 mg PO DAILY [facility] Last Admin: 07/11/21 09:44 Dose: 5 mg Documented by: Heparin Sodium (Porcine) (Heparin Sodium 5,000 Units/Ml Vial) 5,000 units SUBCUT Q8HR [facility] Last Admin: 07/11/21 05:39 Dose: 5,000 units Documented by: Loperamide HCl (Loperamide 2 Mg Cap) 2 mg PO Q4H PRN PRN Reason: Diarrhea Lorazepam (Lorazepam 2 Mg/Ml Sdv) 1 mg IVPUSH Q4H PRN PRN Reason: Agitation Metoprolol Tartrate (Metoprolol Tartrate 25 Mg Tab) 12.5 mg PO BID [facility] Last Admin: 07/11/21 09:54 Dose: Not Given Documented by: Miscellaneous Information (Check Nicotine Patch) 1 ea TRDERM BEDTIME [facility] Last Admin: 07/10/21 22:03 Dose: 1 ea Documented by: Mometasone Furoate/Formoterol Fumar (Formoterol/Mometasone 100-5 Mcg 8.8 Gm Inhaler) 2 puff IH BID [facility] Last Admin: 07/11/21 09:53 Dose: 2 puff Documented by: Multivitamins/Minerals (Multivitamins, Therapeutic With Minerals Tab) 1 tab PO WITHBREAKFAST [facility] Last Admin: 07/11/21 09:44 Dose: 1 tab Documented by: Nicotine (Nicotine 14 Mg/24 Hr Patch) 14 mg TRDERM DAILY [facility] Last Admin: 07/11/21 09:52 Dose: 14 mg Documented by: Nitroglycerin (Nitroglycerin 0.4 Mg Tab.Sl) 0.4 mg SL ASDIRECTED [facility] Prednisone (Prednisone 10 Mg Tab) 40 mg PO WITHBREAKFAST [facility] Last Admin: 07/11/21 09:43 Dose: 40 mg Documented by: Tamsulosin HCl (Tamsulosin 0.4 Mg Cap.Er) 0.4 mg PO PCDINNER [facility] Last Admin: 07/10/21 18:05 Dose: 0.4 mg Documented by: Trazodone HCl (Trazodone 50 Mg Tab) 50 mg PO BEDTIME [facility] Last Admin: 07/11/21 00:59 Dose: 50 mg Documented by: Discontinued Medications Albuterol/Ipratropium (Albuterol/Ipratropium 3.0-0.5 Mg/3 Ml Neb Soln) 3 ml NEB Q4H PRN PRN Reason: Shortness of Breath Last Admin: 07/09/21 13:02 Dose: 3 ml Documented by: Albuterol/Ipratropium (Albuterol/Ipratropium 3.0-0.5 Mg/3 Ml Neb Soln) 3 ml NEB Q4H PRN PRN Reason: Shortness of Breath Azithromycin 500 mg/ Sodium (Chloride) 250 mls @ 250 mls/hr IV ONETIME ONE Stop: 07/09/21 13:43 Last Admin: 07/09/21 13:43 Dose: 250 mls/hr Documented by: Ceftriaxone Sodium 1 gm/ (Sodium Chloride) 50 mls @ 100 mls/hr IV ONETIME ONE Stop: 07/09/21 13:14 Last Admin: 07/09/21 13:13 Dose: 100 mls/hr Documented by: Potassium Chloride/Sodium Chloride (Normal Saline With 20 Meq Kcl) 1,000 mls @ 75 mls/hr IV ASDIRECTED [facility] Last Admin: 07/09/21 17:52 Dose: 75 mls/hr Documented by: Lisinopril (Lisinopril 20 Mg Tab) 40 mg PO DAILY [facility] Prednisone (Prednisone 10 Mg Tab) 50 mg PO WITHBREAKFAST [facility] Last Admin: 07/09/21 14:38 Dose: 50 mg Documented by: Trazodone HCl (Trazodone 50 Mg Tab) 50 mg PO ONETIME ONE Stop: 07/09/21 23:47 Last Admin: 07/09/21 23:56 Dose: 50 mg Documented by: - Exam Urinary Catheter Total Time: 0Days 5Hours General: Alert, Oriented Neck: Supple Lungs: Normal Respiratory Effort, Decreased Breath Sounds. No: Wheezing Cardiovascular: Regular Rate, Regular Rhythm GI/Abdominal Exam: Normal Bowel Sounds, Soft, Non-Tender Extremities: No Pedal Edema Neurological: No New Focal Deficit Psy/Mental Status: Alert, Normal Affect, Normal Mood - Patient Data Lab Results Last 24 hrs: Laboratory Results - last 24 hr 07/10/21 07/11/21 07/11/21 Range/Units 06:10 05:49 05:49 WBC 13.0 H (5.0-10.0) 10^3/uL RBC 3.34 L (4.6-6.2) 10^6/uL Hgb 11.0 L (14.0-18.0) g/dL Hct 33.8 L (40.0-54.0) % MCV 101.2 H (80-100) fL MCH 32.9 (27.0-34.0) pg MCHC 32.5 L (33.0-35.0) g/dL Plt Count 284 (150-450) 10^3/uL Neut % (Auto) 80.8 H (42.2-75.2) % Lymph % (Auto) 9.4 L (20.5-50.1) % Pettis % (Auto) 9.6 H (2-8) % Eos % (Auto) 0.1 L (1.0-3.0) % Baso % (Auto) 0.1 (0.0-1.0) % Sodium 142 (136-145) mmol/L Potassium 4.3 (3.5-5.1) mmol/L Chloride 106 (98-107) mmol/L Carbon Dioxide 27 (21-32) mmol/L Anion Gap 13.3 H (7-13) mEq/L BUN 27 H (7-18) mg/dL Creatinine 0.98 (0.70-1.30) mg/dL Est Cr Clr Drug Dosing 44.02 mL/min Estimated GFR (MDRD) > 60 Glucose 94 (70-99) mg/dL Calcium 8.5 (8.5-10.1) mg/dL Procalcitonin 0.16 H ng/mL Result Diagrams: 07/11/21 05:49 07/11/21 05:49 Adrián Results Last 24 hrs: Microbiology 07/09/21 13:40 Urine Culture - Final Urine, Clean Catch NO GROWTH AFTER 2 DAYS 07/09/21 12:44 Aerobic Blood Culture - Preliminary Blood - Arm, Right NO GROWTH AFTER 1 DAY Anaerobic Blood Culture - Preliminary NO GROWTH AFTER 1 DAY Sepsis Event Note - Evaluation Sepsis Screening Result: Possible Sepsis Risk - Focused Exam Vital Signs: Vital Signs Temp Pulse Pulse Resp BP BP BP 07/11/21 09:54 72 121/51 L 07/11/21 08:00 97.8 F 82 20 112/99 H 07/11/21 05:44 98.9 F 79 18 164/59 H 07/11/21 01:00 98.3 F 88 18 139/63 Pulse Ox 07/11/21 09:54 07/11/21 08:00 95 07/11/21 05:44 98 07/11/21 01:00 99 - Problem List & Annotations (1) Pneumonia SNOMED Code(s): 278320038 Code(s): J18.9 - PNEUMONIA, UNSPECIFIED ORGANISM Status: Acute Current Vi sit: Yes (2) GUSTAVO (acute kidney injury) SNOMED Code(s): 06309014, 05959023 Code(s): N17.9 - ACUTE KIDNEY FAILURE, UNSPECIFIED Status: Acute Current Visit: Yes (3) HTN (hypertension) SNOMED Code(s): 35188849 Code(s): I10 - ESSENTIAL (PRIMARY) HYPERTENSION Status: Acute Current Visit: Yes (4) CAD (coronary artery disease) SNOMED Code(s): 48263329 Code(s): I25.10 - ATHSCL HEART DISEASE OF [place] CORONARY ARTERY W/O ANG PCTRS Status: Acute Current Visit: Yes (5) COPD (chronic obstructive pulmonary disease) SNOMED Code(s): 98699544 Code(s): J44.9 - CHRONIC OBSTRUCTIVE PULMONARY DISEASE, UNSPECIFIED Status: Acute Current Visit: Yes (6) Anemia SNOMED Code(s): 288158914 Code(s): D64.9 - ANEMIA, UNSPECIFIED Status: Acute Current Visit: Yes (7) Dyslipidemia SNOMED Code(s): 861177878 Code(s): E78.5 - HYPERLIPIDEMIA, UNSPECIFIED Status: Acute Current Visit: Yes - Problem List Review Problem List Initiated/Reviewed/Updated: Yes - My Orders Last 24 Hours: My Active Orders 07/10/21 Lunch Mechanical Soft Diet [DIET] 07/11/21 00:30 traZODone 50 mg PO BEDTIME 07/12/21 05:15 BASIC METABOLIC PANEL,BMP [CHEM] AM CBC WITH AUTO DIFF [HEME] AM - Plan Plan:: 86 yo with multiple med problmes, recent admission for pneumonia, weakness, requiring swing bed for pt/ot 1 day after swing bed discharge being readmitted after a fall. pulmonary infiltrate pneumonia - recently treated question if acute new infection or just remaining rad. changes no fever, white count is down, only has chronic cough I think this is unlikely to be an active pneumonia the mild elevation in white blood cell count might relate to the recurrent urinary retention will follow for symptoms, pending procalcitonin hold further Abx for now fall no apparent c spine, head injury follow with pt ot discussed with sw and family - plan for usp placement - discharge is delayed due to unavailable accepting facility urinary retention >1300cc placed montgomery - which the patient pulled out Regnery retention recurred We will replace Montgomery catheter Acute renal failure has basically resolved continue to hold lisinopril - since blood pressure is not currently elevated recheck bmp in AM copd no acute exacerbation continue formoterol Albuterol inh will taper prednisone cad, htn, dyslipidemia resumed metoprolol hold lisinopril re:gustavo and no significant elevation in blood pressure now cont asa, plavix Anemia continue treatment with iron, mvi leukocytosis likely due to prednisone, urinary retention we'll monitor DVT use sq heparin
[2021-07-11] MEDS: Tamsulosin 0.4 MG Cap.ER PO SCH (18:12)
[2021-07-11] MEDS: Acetaminophen 325 MG Tab PO PRN (21:24)
[2021-07-11] MEDS: atorvaSTATin 20 MG Tab PO SCH (21:25)
[2021-07-12] MEDS: Heparin Sodium 5,000 Units/ML Vial SUBCUT SCH ×3 (06:08→23:02)
[2021-07-12 06:46] LABS: ANION GAP 10.9 mEq/L (7-13); CHLORIDE,CL 107 mmol/L (98-107); SODIUM,NA 142 mmol/L (136-145)
[2021-07-12] MEDS: Multivitamins, Therapeutic with Minerals Tab PO SCH (09:01)
[2021-07-12] MEDS: predniSONE 10 MG Tab PO SCH (09:02)
[2021-07-12] MEDS: Metoprolol Tartrate 25 MG Tab PO SCH ×2 (09:03→21:20)
[2021-07-12] MEDS: Clopidogrel 75 MG Tab PO SCH (09:03)
[2021-07-12] MEDS: Finasteride 5 MG Tab PO SCH (09:06)
[2021-07-12] MEDS: Ferrous Sulfate 325 MG Tab PO SCH ×2 (09:06→17:42)
[2021-07-12] MEDS: Aspirin 81 MG Tab.EC PO SCH (09:06)
[2021-07-12] MEDS: Nicotine 14 MG/24 Hr Patch TRDERM SCH (09:07)
[2021-07-12] MEDS: Formoterol/Mometasone 100-5 MCG 8.8 GM Inhaler IH SCH ×2 (09:13→21:35)
--- NOTE | 2021-07-12 12:08 | PCM.PN ---
- General Info Date of Service: 07/12/21 Admission Dx/Problem (Free Text): Admission Diagnosis/Problem Admission Diagnosis/Problem GUSTAVO Subjective Update: overnight had episode of mild confusion has been pulling on montgomery catheter, developed mild hematuria yesterday noted recurrence of urinary retention montgomery was placed again he is generally feeling well, eating well visiting with son Functional Status: Reports: Pain Controlled, Tolerating Diet - Review of Systems General: Denies: Fever Pulmonary: Denies: Shortness of Breath Cardiovascular: Denies: Chest Pain, Edema Genitourinary: Reports: Hematuria, Other (montgomery catheter) Neurological: Reports: Confusion (during the night) - Patient Data Vitals - Most Recent: Last Vital Signs Temp 98.5 F 07/12/21 08:00 Pulse 70 07/12/21 09:03 Resp 18 07/12/21 08:00 BP 121/62 07/12/21 09:03 Pulse Ox 100 07/12/21 08:00 Weight - Most Recent: 129 lb 3.2 oz I&O - Last 24 Hours: Intake & Output 07/11/21 07/12/21 07/12/21 22:59 06:59 14:59 Intake Total 450 Output Total 425 200 700 Balance 25 -200 -700 Lab Results Last 24 Hours: Laboratory Results - last 24 hr 07/12/21 07/12/21 Range/Units 06:20 06:20 WBC 9.0 (5.0-10.0) 10^3/uL RBC 3.24 L (4.6-6.2) 10^6/uL Hgb 10.7 L (14.0-18.0) g/dL Hct 33.0 L (40.0-54.0) % MCV 101.9 H (80-100) fL MCH 33.0 (27.0-34.0) pg MCHC 32.4 L (33.0-35.0) g/dL Plt Count 257 (150-450) 10^3/uL Neut % (Auto) 78.7 H (42.2-75.2) % Lymph % (Auto) 10.4 L (20.5-50.1) % Jones % (Auto) 10.8 H (2-8) % Eos % (Auto) 0.1 L (1.0-3.0) % Baso % (Auto) 0.0 (0.0-1.0) % Sodium 142 (136-145) mmol/L Potassium 4.9 (3.5-5.1) mmol/L Chloride 107 (98-107) mmol/L Carbon Dioxide 29 (21-32) mmol/L Anion Gap 10.9 (7-13) mEq/L BUN 23 H (7-18) mg/dL Creatinine 0.92 (0.70-1.30) mg/dL Est Cr Clr Drug Dosing 46.89 mL/min Estimated GFR (MDRD) > 60 Glucose 92 (70-99) mg/dL Calcium 8.6 (8.5-10.1) mg/dL Adrián Results Last 24 Hours: Microbiology 07/09/21 12:44 Aerobic Blood Culture - Preliminary Blood - Arm, Right NO GROWTH AFTER 2 DAYS Anaerobic Blood Culture - Preliminary NO GROWTH AFTER 2 DAYS Med Orders - Current: Current Medications Acetaminophen (Acetaminophen 325 Mg Tab) 650 mg PO Q4H PRN PRN Reason: Pain (Mild 1-3)/fever Last Admin: 07/11/21 21:24 Dose: 650 mg Documented by: Albuterol (Albuterol 6.7 Gm Inhaler) 0 gm INH Q6HR PRN PRN Reason: Dyspnea Albuterol/Ipratropium (Albuterol/Ipratropium 3.0-0.5 Mg/3 Ml Neb Soln) 3 ml NEB Q4HR PRN PRN Reason: Shortness of Breath Last Admin: 07/09/21 23:35 Dose: 3 ml Documented by: Aspirin (Aspirin 81 Mg Tab.Ec) 81 mg PO DAILY [facility] Last Admin: 07/12/21 09:06 Dose: 81 mg Documented by: Atorvastatin Calcium (Atorvastatin 20 Mg Tab) 40 mg PO BEDTIME [facility] Last Admin: 07/11/21 21:25 Dose: 40 mg Documented by: Clopidogrel Bisulfate (Clopidogrel 75 Mg Tab) 75 mg PO DAILY [facility] Last Admin: 07/12/21 09:03 Dose: 75 mg Documented by: Ferrous Sulfate (Ferrous Sulfate 325 Mg Tab) 325 mg PO BIDMEALS [facility] Last Admin: 07/12/21 09:06 Dose: 325 mg Documented by: Finasteride (Finasteride 5 Mg Tab) 5 mg PO DAILY [facility] Last Admin: 07/12/21 09:06 Dose: 5 mg Documented by: Heparin Sodium (Porcine) (Heparin Sodium 5,000 Units/Ml Vial) 5,000 units SUBCUT Q8HR [facility] Last Admin: 07/12/21 06:08 Dose: 5,000 units Documented by: Loperamide HCl (Loperamide 2 Mg Cap) 2 mg PO Q4H PRN PRN Reason: Diarrhea Lorazepam (Lorazepam 2 Mg/Ml Sdv) 1 mg IVPUSH Q4H PRN PRN Reason: Agitation Metoprolol Tartrate (Metoprolol Tartrate 25 Mg Tab) 12.5 mg PO BID [facility] Last Admin: 07/12/21 09:03 Dose: 12.5 mg Documented by: Miscellaneous Information (Check Nicotine Patch) 1 ea TRDERM BEDTIME [facility] Last Admin: 07/11/21 21:29 Dose: 1 ea Documented by: Mometasone Furoate/Formoterol Fumar (Formoterol/Mometasone 100-5 Mcg 8.8 Gm Inhaler) 2 puff IH BID [facility] Last Admin: 07/12/21 09:13 Dose: 2 puff Documented by: Multivitamins/Minerals (Multivitamins, Therapeutic With Minerals Tab) 1 tab PO WITHBREAKFAST [facility] Last Admin: 07/12/21 09:01 Dose: 1 tab Documented by: Nicotine (Nicotine 14 Mg/24 Hr Patch) 14 mg TRDERM DAILY [facility] Last Admin: 07/12/21 09:07 Dose: 14 mg Documented by: Nitroglycerin (Nitroglycerin 0.4 Mg Tab.Sl) 0.4 mg SL ASDIRECTED [facility] Prednisone (Prednisone 10 Mg Tab) 30 mg PO WITHBREAKFAST [facility] Last Admin: 07/12/21 09:02 Dose: 30 mg Documented by: Tamsulosin HCl (Tamsulosin 0.4 Mg Cap.Er) 0.4 mg PO PCDINNER [facility] Last Admin: 07/11/21 18:12 Dose: 0.4 mg Documented by: Trazodone HCl (Trazodone 50 Mg Tab) 50 mg PO BEDTIME [facility] Last Admin: 07/11/21 21:26 Dose: 50 mg Documented by: Discontinued Medications Albuterol/Ipratropium (Albuterol/Ipratropium 3.0-0.5 Mg/3 Ml Neb Soln) 3 ml NEB Q4H PRN PRN Reason: Shortness of Breath Last Admin: 07/09/21 13:02 Dose: 3 ml Documented by: Albuterol/Ipratropium (Albuterol/Ipratropium 3.0-0.5 Mg/3 Ml Neb Soln) 3 ml NEB Q4H PRN PRN Reason: Shortness of Breath Azithromycin 500 mg/ Sodium (Chloride) 250 mls @ 250 mls/hr IV ONETIME ONE Stop: 07/09/21 13:43 Last Admin: 07/09/21 13:43 Dose: 250 mls/hr Documented by: Ceftriaxone Sodium 1 gm/ (Sodium Chloride) 50 mls @ 100 mls/hr IV ONETIME ONE Stop: 07/09/21 13:14 Last Admin: 07/09/21 13:13 Dose: 100 mls/hr Documented by: Potassium Chloride/Sodium Chloride (Normal Saline With 20 Meq Kcl) 1,000 mls @ 75 mls/hr IV ASDIRECTED [facility] Last Admin: 07/09/21 17:52 Dose: 75 mls/hr Documented by: Lisinopril (Lisinopril 20 Mg Tab) 40 mg PO DAILY [facility] Prednisone (Prednisone 10 Mg Tab) 50 mg PO WITHBREAKFAST [facility] Last Admin: 07/09/21 14:38 Dose: 50 mg Documented by: Prednisone (Prednisone 10 Mg Tab) 40 mg PO WITHBREAKFAST [facility] Last Admin: 07/11/21 09:43 Dose: 40 mg Documented by: Trazodone HCl (Trazodone 50 Mg Tab) 50 mg PO ONETIME ONE Stop: 07/09/21 23:47 Last Admin: 07/09/21 23:56 Dose: 50 mg Documented by: - Exam Quality Assessment: No: Supplemental Oxygen Urinary Catheter Total Time: 2Days 17Hours General: Alert, Oriented Lungs: Normal Respiratory Effort, Decreased Breath Sounds Cardiovascular: Regular Rate, Regular Rhythm GI/Abdominal Exam: Normal Bowel Sounds, Soft, Non-Tender (Male) Exam: Other (montgomery catheter with mild hematuria) Extremities: No Pedal Edema Neurological: No New Focal Deficit Psy/Mental Status: Alert, Normal Affect, Normal Mood - Patient Data Lab Results Last 24 hrs: Laboratory Results - last 24 hr 07/12/21 07/12/21 Range/Units 06:20 06:20 WBC 9.0 (5.0-10.0) 10^3/uL RBC 3.24 L (4.6-6.2) 10^6/uL Hgb 10.7 L (14.0-18.0) g/dL Hct 33.0 L (40.0-54.0) % MCV 101.9 H (80-100) fL MCH 33.0 (27.0-34.0) pg MCHC 32.4 L (33.0-35.0) g/dL Plt Count 257 (150-450) 10^3/uL Neut % (Auto) 78.7 H (42.2-75.2) % Lymph % (Auto) 10.4 L (20.5-50.1) % Jones % (Auto) 10.8 H (2-8) % Eos % (Auto) 0.1 L (1.0-3.0) % Baso % (Auto) 0.0 (0.0-1.0) % Sodium 142 (136-145) mmol/L Potassium 4.9 (3.5-5.1) mmol/L Chloride 107 (98-107) mmol/L Carbon Dioxide 29 (21-32) mmol/L Anion Gap 10.9 (7-13) mEq/L BUN 23 H (7-18) mg/dL Creatinine 0.92 (0.70-1.30) mg/dL Est Cr Clr Drug Dosing 46.89 mL/min Estimated GFR (MDRD) > 60 Glucose 92 (70-99) mg/dL Calcium 8.6 (8.5-10.1) mg/dL Result Diagrams: 07/12/21 06:20 07/12/21 06:20 Adrián Results Last 24 hrs: Microbiology 07/09/21 12:44 Aerobic Blood Culture - Preliminary Blood - Arm, Right NO GROWTH AFTER 2 DAYS Anaerobic Blood Culture - Preliminary NO GROWTH AFTER 2 DAYS Sepsis Event Note - Evaluation Sepsis Screening Result: Possible Sepsis Risk - Focused Exam Vital Signs: Vital Signs Temp Pulse Pulse Resp BP BP Pulse Ox 07/12/21 09:03 70 121/62 07/12/21 08:00 98.5 F 70 18 127/62 100 07/12/21 04:00 97.6 F 71 20 150/68 H 99 - Problem List & Annotations (1) Pneumonia SNOMED Code(s): 430448834 Code(s): J18.9 - PNEUMONIA, UNSPECIFIED ORGANISM Status: Acute Current Visit: Yes (2) GUSTAVO (acute kidney injury) SNOMED Code(s): 29337646, 94578310 Code(s): N17.9 - ACUTE KIDNEY FAILURE, UNSPECIFIED Status: Acute Current Visit: Yes (3) HTN (hypertension) SNOMED Code(s): 50550787 Code(s): I10 - ESSENTIAL (PRIMARY) HYPERTENSION Status: Acute Current Visit: Yes (4) CAD (coronary artery disease) SNOMED Code(s): 59507673 Code(s): I25.10 - ATHSCL HEART DISEASE OF [place] CORONARY ARTERY W/O ANG PCTRS Status: Acute Current Visit: Yes (5) COPD (chronic obstructive pulmonary disease) SNOMED Code(s): 60763175 Code(s): J44.9 - CHRONIC OBSTRUCTIVE PULMONARY DISEASE, UNSPECIFIED Status: Acute Current Visit: Yes (6) Anemia SNOMED Code(s): 756870321 Code(s): D64.9 - ANEMIA, UNSPECIFIED Status: Acute Current Visit: Yes (7) Dyslipidemia SNOMED Code(s): 343536749 Code(s): E78.5 - HYPERLIPIDEMIA, UNSPECIFIED Status: Acute Current Visit: Yes (8) Hematuria, gross SNOMED Code(s): 254554007 Code(s): R31.0 - GROSS HEMATURIA Status: Acute Current Visit: Yes - Problem List Review Problem List Initiated/Reviewed/Updated: Yes - My Orders Last 24 Hours: My Active Orders 07/12/21 08:00 predniSONE 30 mg PO WITHBREAKFAST - Plan Plan:: 86 yo with multiple med problems, recent admission for pneumonia, weakness, requiring swing bed for pt/ot 1 day after swing bed discharge being readmitted after a fall. pulmonary infiltrate pneumonia - recently treated question if acute new infection or just remaining rad. changes no fever, white count is down, only has chronic cough I think this is unlikely to be an active pneumonia the elevation in white blood cell count likely related to the recurrent urinary retention will follow for symptoms hold further Abx for now fall no apparent c spine, head injury follow with pt ot discussed with sw and family - plan for snf placement - discharge is delayed due to unavailable accepting facility urinary retention >1300cc placed montgomery - which the patient pulled out Urinary retention recurred We will replace Montgomery catheter hematuria related to montgomery, trauma with pulling will monitor Acute renal failure has resolved continue to hold lisinopril - since blood pressure is not currently elevated copd no acute exacerbation continue formoterol Albuterol inh slowly taper prednisone cad, htn, dyslipidemia resumed metoprolol hold lisinopril re:gustavo and no significant elevation in blood pressure now cont asa, plavix Anemia continue treatment with iron, mvi leukocytosis likely due to urinary retention resolved DVT use sq heparin - stop if more significant hematuria
[2021-07-12] MEDS: Tamsulosin 0.4 MG Cap.ER PO SCH (17:42)
[2021-07-12] MEDS: Acetaminophen 325 MG Tab PO PRN (21:19)
[2021-07-12] MEDS: atorvaSTATin 20 MG Tab PO SCH (21:20)
[2021-07-12] MEDS: traZODone 50 MG Tab PO SCH (21:20)
[2021-07-13] MEDS: Nicotine 14 MG/24 Hr Patch TRDERM SCH (09:11)
[2021-07-13] MEDS: predniSONE 10 MG Tab PO SCH (09:12)
[2021-07-13] MEDS: Aspirin 81 MG Tab.EC PO SCH (09:12)
[2021-07-13] MEDS: Multivitamins, Therapeutic with Minerals Tab PO SCH (09:12)
[2021-07-13] MEDS: Finasteride 5 MG Tab PO SCH (09:12)
[2021-07-13] MEDS: Ferrous Sulfate 325 MG Tab PO SCH (09:12)
[2021-07-13] MEDS: Metoprolol Tartrate 25 MG Tab PO SCH (09:12)
[2021-07-13] MEDS: Heparin Sodium 5,000 Units/ML Vial SUBCUT SCH (09:13)
[2021-07-13] MEDS: Clopidogrel 75 MG Tab PO SCH (09:13)
[2021-07-13] MEDS: Formoterol/Mometasone 100-5 MCG 8.8 GM Inhaler IH SCH (09:20)
--- NOTE | 2021-07-13 10:28 | PCM.DCSUM1 ---
Discharge Summary - Hospital Course Free Text/Narrative:: 86 yo with multiple med problems, recent admission for pneumonia, weakness, requiring swing bed for pt/ot 1 day after swing bed discharge being readmitted after a fall. pulmonary infiltrate pneumonia - recently treated question if acute new infection or just remaining rad. changes no fever, white count is down, only has chronic cough I think this is unlikely to be an active pneumonia the elevation in white blood cell count was likely related to the recurrent urinary retention hold further Abx for now fall no apparent c spine, head injury follow with pt ot discussed with sw and family - plan for prison placement urinary retention >1300cc placed montgomery - which the patient pulled out Urinary retention recurred Replaced Montgomery catheter suggest to remove Montgomery around , 17 of July and follow for recurrent retetntion cont flomax hematuria related to montgomery, trauma with pulling improved Acute renal failure has resolved continue to hold lisinopril - since blood pressure is not currently elevated copd no acute exacerbation continue formoterol Albuterol inh slowly taper prednisone cad, htn, dyslipidemia resumed metoprolol hold lisinopril re:gustavo and no significant elevation in blood pressure now cont asa, plavix Anemia continue treatment with iron, mvi leukocytosis likely due to urinary retention resolved Diagnosis: Stroke: No - Discharge Data Discharge Date: 07/13/21 Discharge Disposition: DC/Tfer to SNF 03 Condition: Good - Referral to Home Health Primary Care Physician: PCP None - Discharge Diagnosis/Problem(s) (1) Pneumonia SNOMED Code(s): 804226932 ICD Code: J18.9 - PNEUMONIA, UNSPECIFIED ORGANISM Status: Acute Current Visit: Yes Qualifiers: Pneumonia type: due to unspecified organism Laterality: right Lung location: middle lobe of lung Qualified Code(s): J18.9 - Pneumonia, unspecified organism (2) GUSTVAO (acute kidney injury) SNOMED Code(s): 75197550, 17636965 ICD Code: N17.9 - ACUTE KIDNEY FAILURE, UNSPECIFIED Status: Acute Current Visit: Yes (3) HTN (hypertension) SNOMED Code(s): 22192446 ICD Code: I10 - ESSENTIAL (PRIMARY) HYPERTENSION Status: Acute Current Visit: Yes (4) CAD (coronary artery disease) SNOMED Code(s): 79033929 ICD Code: I25.10 - ATHSCL HEART DISEASE OF [place] CORONARY ARTERY W/O ANG PCTRS Status: Acute Current Visit: Yes (5) COPD (chronic obstructive pulmonary disease) SNOMED Code(s): 82109606 ICD Code: J44.9 - CHRONIC OBSTRUCTIVE PULMONARY DISEASE, UNSPECIFIED Status: Acute Current Visit: Yes (6) Anemia SNOMED Code(s): 490757546 ICD Code: D64.9 - ANEMIA, UNSPECIFIED Status: Acute Current Visit: Yes (7) Dyslipidemia SNOMED Code(s): 942679186 ICD Code: E78.5 - HYPERLIPIDEMIA, UNSPECIFIED Status: Acute Current Visit: Yes (8) Hematuria, gross SNOMED Code(s): 140074874 ICD Code: R31.0 - GROSS HEMATURIA Status: Acute Current Visit: Yes - Patient Summary/Data Consults: Consultations 07/09/21 14:00 Consult to Physical Therapy [PT Evaluation and Treatment] [CONS] Routine 07/09/21 14:02 Consult to Case Management/Hand Scudder [CONS] Routine OT Evaluation and Treatment [CONS] Routine - Discharge Plan *PRESCRIPTION DRUG MONITORING PROGRAM REVIEWED*: Not Applicable *COPY OF PRESCRIPTION DRUG MONITORING REPORT IN PATIENT WALTER: Not Applicable Prescriptions/Med Rec: predniSONE 10 mg PO WITHBREAKFAST #18 tablet Home Medications: Home Meds Finasteride 5 mg PO DAILY 07/04/15 [History] Tamsulosin HCl 0.4 mg PO PCDINNER 07/04/15 [History] Aspirin [Adult Low Dose Aspirin EC] 81 mg PO DAILY 02/20/16 [History] Clopidogrel [Plavix] 1 tab PO DAILY 02/20/16 [History] Nitroglycerin [Nitrostat] 1 tab SL ASDIRECTED 02/20/16 [History] atorvaSTATin [Lipitor] 40 mg PO BEDTIME 02/20/16 [History] Albuterol [Ventolin HFA] 2 puff INH Q6HR PRN 09/26/17 [History] Budesonide/Formoterol [Symbicort 80-4.5 MCG] 2 puff INH BID 09/26/17 [History] traZODone HCl [Trazodone HCl] 50 mg PO BEDTIME PRN 01/30/18 [History] Ascorbic Acid [Vitamin C] 500 mg PO DAILY 30 Days #30 tablet 07/08/21 [Rx] Cholecalciferol (Vitamin D3) [Vitamin D3] 25 mcg PO DAILY 30 Days #30 tablet 07/08/21 [Rx] Cyanocobalamin (Vitamin B12) [Vitamin B12] 1,000 mcg PO DAILY 30 Days #30 tablet 07/08/21 [Rx] Ferrous Sulfate 325 mg PO BIDMEALS 30 Days #60 tablet 07/08/21 [Rx] Folic Acid 1 mg PO DAILY 30 Days #30 tablet 07/08/21 [Rx] Loperamide [Imodium] 2 mg PO Q4H PRN 30 Days #30 cap 07/08/21 [Rx] Metoprolol Tartrate [Lopressor] 12.5 mg PO BID 30 Days #60 tablet 07/08/21 [Rx] Multivitamins/Minerals [Vitamins and Minerals] 1 tab PO WITHBREAKFAST 30 Days #30 tablet 07/08/21 [Rx] predniSONE 10 mg PO WITHBREAKFAST #18 tablet 07/13/21 [Rx] Forms: ED Department Discharge Referrals: David Hunter MD [Physician] - - Discharge Summary/Plan Comment DC Time >30 min.: No Total # of Minutes for Discharge Time: 25 min - General Info Date of Service: 07/13/21 Subjective Update: no significant confusion hematuria resolving - Review of Systems General: Reports: Weakness Pulmonary: Denies: Shortness of Breath Cardiovascular: Denies: Chest Pain, Edema Genitourinary: Reports: Other (montgomery, minimal hematuria) - Patient Data Vitals - Most Recent: Last Vital Signs Temp 98.3 F 07/13/21 07:51 Pulse 69 07/13/21 09:12 Resp 18 07/13/21 07:51 BP 161/69 H 07/13/21 09:12 Pulse Ox 100 07/13/21 07:51 Weight - Most Recent: 129 lb 3.2 oz I&O - Last 24 hours: Intake & Output 07/12/21 07/13/21 07/13/21 22:59 06:59 14:59 Intake Total 750 300 Output Total 750 1100 Balance 0 -800 CINDY Results - Last 24 hrs: Microbiology 07/09/21 12:44 Aerobic Blood Culture - Preliminary Blood - Arm, Right NO GROWTH AFTER 3 DAYS Anaerobic Blood Culture - Preliminary NO GROWTH AFTER 3 DAYS Med Orders - Current: Current Medications Acetaminophen (Acetaminophen 325 Mg Tab) 650 mg PO Q4H PRN PRN Reason: Pain (Mild 1-3)/fever Last Admin: 07/12/21 21:19 Dose: 650 mg Documented by: Albuterol (Albuterol 6.7 Gm Inhaler) 0 gm INH Q6HR PRN PRN Reason: Dyspnea Last Admin: 07/12/21 18:26 Dose: 2 puff Documented by: Albuterol/Ipratropium (Albuterol/Ipratropium 3.0-0.5 Mg/3 Ml Neb Soln) 3 ml NEB Q4HR PRN PRN Reason: Shortness of Breath Last Admin: 07/09/21 23:35 Dose: 3 ml Documented by: Aspirin (Aspirin 81 Mg Tab.Ec) 81 mg PO DAILY [facility] Last Admin: 07/13/21 09:12 Dose: 81 mg Documented by: Atorvastatin Calcium (Atorvastatin 20 Mg Tab) 40 mg PO BEDTIME [facility] Last Admin: 07/12/21 21:20 Dose: 40 mg Documented by: Clopidogrel Bisulfate (Clopidogrel 75 Mg Tab) 75 mg PO DAILY [facility] Last Admin: 07/13/21 09:13 Dose: 75 mg Documented by: Ferrous Sulfate (Ferrous Sulfate 325 Mg Tab) 325 mg PO BIDMEALS [facility] Last Admin: 07/13/21 09:12 Dose: 325 mg Documented by: Finasteride (Finasteride 5 Mg Tab) 5 mg PO DAILY [facility] Last Admin: 07/13/21 09:12 Dose: 5 mg Documented by: Heparin Sodium (Porcine) (Heparin Sodium 5,000 Units/Ml Vial) 5,000 units SUBCUT Q8HR [facility] Last Admin: 07/13/21 09:13 Dose: Not Given Documented by: Loperamide HCl (Loperamide 2 Mg Cap) 2 mg PO Q4H PRN PRN Reason: Diarrhea Lorazepam (Lorazepam 2 Mg/Ml Sdv) 1 mg IVPUSH Q4H PRN PRN Reason: Agitation Metoprolol Tartrate (Metoprolol Tartrate 25 Mg Tab) 12.5 mg PO BID [facility] Last Admin: 07/13/21 09:12 Dose: 12.5 mg Documented by: Miscellaneous Information (Check Nicotine Patch) 1 ea TRDERM BEDTIME [facility] Last Admin: 07/12/21 21:30 Dose: 1 ea Documented by: Mometasone Furoate/Formoterol Fumar (Formoterol/Mometasone 100-5 Mcg 8.8 Gm Inhaler) 2 puff IH BID [facility] Last Admin: 07/13/21 09:20 Dose: 2 puff Documented by: Multivitamins/Minerals (Multivitamins, Therapeutic With Minerals Tab) 1 tab PO WITHBREAKFAST [facility] Last Admin: 07/13/21 09:12 Dose: 1 tab Documented by: Nicotine (Nicotine 14 Mg/24 Hr Patch) 14 mg TRDERM DAILY [facility] Last Admin: 07/13/21 09:11 Dose: 14 mg Documented by: Nitroglycerin (Nitroglycerin 0.4 Mg Tab.Sl) 0.4 mg SL ASDIRECTED [facility] Prednisone (Prednisone 10 Mg Tab) 30 mg PO WITHBREAKFAST [facility] Last Admin: 07/13/21 09:12 Dose: 30 mg Documented by: Tamsulosin HCl (Tamsulosin 0.4 Mg Cap.Er) 0.4 mg PO PCDINNER [facility] Last Admin: 07/12/21 17:42 Dose: 0.4 mg Documented by: Trazodone HCl (Trazodone 50 Mg Tab) 50 mg PO BEDTIME [facility] Last Admin: 07/12/21 21:20 Dose: 50 mg Documented by: Discontinued Medications Albuterol/Ipratropium (Albuterol/Ipratropium 3.0-0.5 Mg/3 Ml Neb Soln) 3 ml NEB Q4H PRN PRN Reason: Shortness of Breath Last Admin: 07/09/21 13:02 Dose: 3 ml Documented by: Albuterol/Ipratropium (Albuterol/Ipratropium 3.0-0.5 Mg/3 Ml Neb Soln) 3 ml NEB Q4H PRN PRN Reason: Shortness of Breath Azithromycin 500 mg/ Sodium (Chloride) 250 mls @ 250 mls/hr IV ONETIME ONE Stop: 07/09/21 13:43 Last Admin: 07/09/21 13:43 Dose: 250 mls/hr Documented by: Ceftriaxone Sodium 1 gm/ (Sodium Chloride) 50 mls @ 100 mls/hr IV ONETIME ONE Stop: 07/09/21 13:14 Last Admin: 07/09/21 13:13 Dose: 100 mls/hr Documented by: Potassium Chloride/Sodium Chloride (Normal Saline With 20 Meq Kcl) 1,000 mls @ 75 mls/hr IV ASDIRECTED [facility] Last Admin: 07/09/21 17:52 Dose: 75 mls/hr Documented by: Lisinopril (Lisinopril 20 Mg Tab) 40 mg PO DAILY [facility] Prednisone (Prednisone 10 Mg Tab) 50 mg PO WITHBREAKFAST [facility] Last Admin: 07/09/21 14:38 Dose: 50 mg Documented by: Prednisone (Prednisone 10 Mg Tab) 40 mg PO WITHBREAKFAST [facility] Last Admin: 07/11/21 09:43 Dose: 40 mg Documented by: Trazodone HCl (Trazodone 50 Mg Tab) 50 mg PO ONETIME ONE Stop: 07/09/21 23:47 Last Admin: 07/09/21 23:56 Dose: 50 mg Documented by: - Exam General: Reports: Alert, Oriented Neck: Reports: Supple Lungs: Reports: Clear to Auscultation, Normal Respiratory Effort Cardiovascular: Reports: Regular Rate, Regular Rhythm GI/Abdominal Exam: Normal Bowel Sounds, Soft, Non-Tender Extremities: No Pedal Edema Psy/Mental Status: Reports: Alert, Normal Affect, Normal Mood
== END 2021-07-13 10:50 | DRG 683 ==
LOC: DL.ED 10:24 → DL.MS 12:40 → DL.ED 13:04
PROVIDERS: ADMIT Family Medicine; ATTEND Internal Medicine
PROC: 0T9B70Z Drainage of Bladder with Drainage Device, Via Natural or Artificial Opening (ICD-10-PCS; principal; 2021-07-12)
DX: N17.9 Acute kidney failure, unspecified (principal); T83.83XA Hemorrhage due to genitourinary prosthetic devices, implants and grafts, initial encounter; J18.9 Pneumonia, unspecified organism; R29.6 Repeated falls; R33.9 Retention of urine, unspecified; J44.9 Chronic obstructive pulmonary disease, unspecified; I25.10 Atherosclerotic heart disease of native coronary artery without angina pectoris; I10 Essential (primary) hypertension; E78.5 Hyperlipidemia, unspecified; D64.9 Anemia, unspecified; H33.21 Serous retinal detachment, right eye; Z66 Do not resuscitate; Z20.822 Contact with and (suspected) exposure to COVID-19; R31.0 Gross hematuria; K80.20 Calculus of gallbladder without cholecystitis without obstruction; M19.90 Unspecified osteoarthritis, unspecified site; W01.0XXA Fall on same level from slipping, tripping and stumbling without subsequent striking against object, initial encounter; S09.90XA Unspecified injury of head, initial encounter; N42.9 Disorder of prostate, unspecified; Z79.82 Long term (current) use of aspirin; Z79.52 Long term (current) use of systemic steroids; Z79.899 Other long term (current) drug therapy; I25.2 Old myocardial infarction; Z87.891 Personal history of nicotine dependence; Z90.49 Acquired absence of other specified parts of digestive tract; Z28.82 Immunization not carried out because of caregiver refusal; Z91.81 History of falling; Z95.5 Presence of coronary angioplasty implant and graft; Z79.02 Long term (current) use of antithrombotics/antiplatelets; Z79.51 Long term (current) use of inhaled steroids
CPT/HCPCS: 36415; 51702; 51798; 70450; 71045; 72125; 80048; 80053; 80307; 81001; 82550; 82947; 83735; 84145; 85025; 86140; 87040; 87086; 94640; 97162-GP; 97166-GO; A9270-GY; J0456; J0696; J1644; J3480; J7050; J7512; J7620-GY; U0002

== ENCOUNTER 2021-09-12 17:47 | Emergency (ER) | payer MEDICARE, BC ==
--- NOTE | 2021-09-12 18:13 | EDM.PDOC ---
Scribed by Robyn Rojas 09/12/211811 for Alyssa Massey MD ED HPI GENERAL MEDICAL PROBLEM - General Chief Complaint: Syncope Stated Complaint: AMBULANCE Time Seen by Provider: 09/12/21 17:47 Source of Information: Reports: EMS, EMS Notes Reviewed (17) History Limitations: Reports: Altered Mental Status - History of Present Illness INITIAL COMMENTS - FREE TEXT/NARRATIVE: Patient arrives by [facility] for concerns of syncope, hypoxia and hypotension. Ambulance was called out to see him for irregular heart beat as well as pallor. They noted that he had a syncopal episode. Initial blood pressure was 106/56, no fevers. Heart rate of 34 to 120 and satting in the 70s increased to 86% with 2 liters via nasal cannula. Patient was last noted to have agonal breathing at 1740 just prior to EMS arrival. On arrival to the ambulance bay at 1747, patient did not have respiratory effort. Auscultation confirmed no cardiac sounds. No pulses were identified. This was confirmed with 2 other staff members. DNR status was confirmed with paper work from the [facility]. Patient pronounced at 1750. Family notified. - Related Data Allergies Allergy/AdvReac Type Severity Reaction Status Date / Time No Known Allergies Allergy Verified 07/09/21 10:39 Home Meds: Home Meds Budesonide/Formoterol [Symbicort 80-4.5 MCG] 2 puff INH BID 09/26/17 [History] Acetaminophen [Tylenol] 650 mg PO Q4H PRN #120 tablet 09/01/21 [Rx] Albuterol/Ipratropium [DuoNeb 3.0-0.5 MG/3 ML] 3 ml NEB Q6H PRN #360 ml 09/01/21 [Rx] Aspirin [Adult Low Dose Aspirin EC] 81 mg PO DAILY #90 09/01/21 [Rx] Clopidogrel [Plavix] 75 mg PO DAILY #90 tablet 09/01/21 [Rx] Doxycycline [Vibramycin] 100 mg PO BID #14 tab 09/01/21 [Rx] Metoprolol Tartrate [Lopressor] 12.5 mg PO BID #180 tablet 09/01/21 [Rx] Multivitamins/Minerals [Vitamins and Minerals] 1 tab PO WITHBREAKFAST 30 Days #30 tablet 09/01/21 [Rx] Tamsulosin [Flomax] 0.4 mg PO PCDINNER #90 cap.er 09/01/21 [Rx] atorvaSTATin [Lipitor] 40 mg PO BEDTIME #90 tablet 09/01/21 [Rx] bisacodyL [Dulcolax] 10 mg RC DAILY PRN #10 supp 09/01/21 [Rx] predniSONE [Prednisone] 5 mg PO DAILY #55 tablet 09/01/21 [Rx] traZODone 50 mg PO BEDTIME PRN #90 tablet 09/01/21 [Rx] Past Medical History HEENT History: Reports: Hard of Hearing, Impaired Vision Other HEENT History: 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 Other Cardiovascular History: MD with stents placed Nov 2015 Respiratory History: Reports: COPD Gastrointestinal History: Reports: Cholelithiasis Genitourinary History: Reports: Prostate Disorder, Other (See Below) Other Genitourinary History: montgomery cath Musculoskeletal History: Reports: Arthritis, Fracture Other Musculoskeletal History: right hip fx Neurological History: Reports: Other (See Below) Other Neuro History: 2012 bumped head Psychiatric History: Reports: None Endocrine/Metabolic History: Reports: None Hematologic History: Reports: None Immunologic History: Reports: None Oncologic (Cancer) History: Reports: None Dermatologic History: Reports: Eczema Other Dermatologic History: eczema - Infectious Disease History Infectious Disease History: Reports: None - Past Surgical History Head Surgeries/Procedures: Reports: None HEENT Surgical History: Reports: Detached Retina Other Cardiovascular Surgeries/Procedures: angiogram 2 weeks ago Respiratory Surgical History: Reports: None GI Surgical History: Reports: Appendectomy, Cholecystectomy Male Surgical History: Reports: None Endocrine Surgical History: Reports: None Neurological Surgical History: Reports: None Musculoskeletal Surgical History: Reports: Shoulder Surgery Other Musculoskeletal Surgeries/Procedures:: rotator cuff Dermatological Surgical History: Reports: None Social & Family History - Family History Family Medical History: No Pertinent Family History - Caffeine Use Caffeine Use: Reports: Coffee - Living Situation & Occupation Living situation: Reports: with Family Occupation: Retired ED ROS GENERAL - Review of Systems Review Of Systems: Unable To Obtain Reason Not Obtained: - Physical Exam Exam: See Below Reason Not Obtained: No respiratory effort. No cardiac activity auscultated or palpated. Departure - Departure Time of Disposition: 17:50 Disposition: 20 Clinical Impression: D.O.A. ( on arrival) - Discharge Information Forms: ED Department Discharge I have read and agree with the documentation that has been completed regarding this visit. By signing this record, I attest that the documentation was completed in my physical presence and is an accurate record of the encounter.
== END 2021-09-12 19:30 | disposition expired ==
LOC: DL.ED 17:47
DX: I25.2 Old myocardial infarction; J44.9 Chronic obstructive pulmonary disease, unspecified; M19.90 Unspecified osteoarthritis, unspecified site; Z79.82 Long term (current) use of aspirin; Z79.02 Long term (current) use of antithrombotics/antiplatelets; Z79.899 Other long term (current) drug therapy
CPT/HCPCS: 99284